=== PATIENT | female | born 1930 | race Caucasian/White ===

== ENCOUNTER 2016-12-28 06:52 | Inpatient (IN) | payer OTHER ==
[~2016-12-28] VITALS: Ht 149.9 cm; Wt 63.0 kg
[~2016-12-28 06:52] MED LIST: AMARYL2 M1 PO; CARVEDILOL12.5 M1 PO; COUMADIN 5 MG TA5 MG PO; JANUVIA50 M1 PO; K-TAB ER20 MEQ PO; LIPITOR20 M2 PO; METOLAZONE5 MG PO; ROCALTROL0.25 MC1 PO; TORSEMIDE100 M1 PO; ZAROXOLYN5 MG PO
--- NOTE | 2016-12-28 07:41 | ED GENERAL ADULT ---
History of Present Illness General Chief Complaint: General Adult Stated Complaint: WEAKNESS Source: patient, family Exam Limitations: patient's age Allergies Coded Allergies: Sulfa (Sulfonamide Antibiotics) (RASH 01/17/16) Reconcile Medications Calcitriol (Rocaltrol) 0.25 MCG CAPSULE 1 CAP PO Saturday SUPPLEMENT (Reported) Carvedilol 12.5 MG TABLET 1 TAB PO BID BP (Reported) Glimepiride (Amaryl) 2 MG TABLET 1 TAB PO QPM DM (Reported) Glimepiride (Amaryl) 2 MG TABLET 2 TAB PO DAILY DM (Reported) Metolazone 5 MG TABLET 1 TAB PO DAILY CHF (Reported) Potassium Chloride (K-Tab ER) 20 MEQ TABLET.ER 1 TAB PO DAILY SUPPLEMENT ( Reported) Sitagliptin Phosphate (Januvia) 50 MG TABLET 1 TAB PO DAILY DM (Reported) Torsemide 100 MG TABLET 1 TAB PO DAILY WATER PILL (Reported) Warfarin Sodium 5 MG TABLET 1 TAB PO 1700 BLOOD THINNER (Reported) Triage Note: PT BIBA C/O SORE THROAT, COLD SYMPTOMS, HEADACHE, NON PRODUCTIVE COUGH X 1 WEEK. PT STATES PAIN IN HEAD IS BEHIND RIGHT EAR. PT LIVES ALONE AND CALLED 911 D/T WEAKNESS CANT PERFORM ADLS Triage Nurses Notes Reviewed? yes HPI: 86 year old woman with multiple medical problems significant for CHF s/p PM and CKD seen for evaluation of right sided head pain, nonproductive cough, sore throat, nasal drip, nausea, and vomiting. Patient is a poor historian, collateral information regarding her well being is offered by the patients daughter whom is present during the interview. She reports onset of these symptoms last saturday and denies any sick contacts. She is followed by a leather stitcher in [place] who recently added metolazone to her medication regimen. Patient reports sleeping with two pillows at night, which is usual for her, and denies any increased shortness of breath. She believes the swelling in her legs is very well controlled. She admits to eating and drinking less during this period of time. Additionally she denies any blurred/double vision, lightheadedness/dizzyness, fever, chills, chest pain, worsening shortness of breath, diarrhea, urinary frequency/urgency/pain, numbness/tingling. (VANIA HUNT,CARLY) Vital Signs & Intake/Output Vital Signs & Intake/Output Vital Signs Date Time Temp Pulse Resp B/P Pulse O2 O2 Flow FiO2 Ox Delivery Rate 12/28 1600 97.2 71 18 130/60 96 Room Air 12/28 1412 96.0 79 20 126/60 98 Room Air 12/28 1112 97.2 67 18 121/70 98 Room Air 12/28 1106 98.3 71 20 134/69 12/28 0913 96.0 72 18 143/74 98 Room Air 12/28 0657 95.7 82 18 154/87 97 Room Air Past History Travel History Traveled to [place] past 21 day No Medical History Any Pertinent Medical History? see below for history Neurological: NONE EENT: NONE Cardiovascular: PACEMAKER VALVE REPLACED Respiratory: NONE Gastrointestinal: NONE Hepatic: NONE Renal: glomerulonephritis Musculoskeletal: gout Psychiatric: NONE Endocrine: diabetes Blood Disorders: NONE Cancer(s): NONE History of MRSA: No History of VRE: No History of CDIFF: No Pneumonia Vaccine: 08/09/15 Influenza Vaccine: 07/31/15 Surgical History Surgical History: appendectomy, cholecystectomy, TIPLE BYPASS NEW VALVUE 3 YEARS AGO PACEMAKER 3 YRS AGO Psychosocial History Who do you live with Patient/Self Services at Home None What is your primary language Barbadian Tobacco Use: Quit >30 days ago ETOH Use: denies use Illicit Drug Use: denies illicit drug use Family History Hx Contributory? No (CARLY CARO MD) Review of Systems Review of Systems Constitutional: Reports: see HPI. (CARLY CARO MD) Physical Exam Physical Exam General Appearance: well developed/nourished, no apparent distress, alert, awake Comments: General - well developed, well nourished pleasant elderly woman in no acute distress HEENT - NCAT, PERRLA, EOMI, anicteric sclera, EAC clear bilaterally, no mastoid tenderness, no sinus tendess, dry mucous membranes, mildly erythematous oropharynx without excudates, no cervical lymphadenopathy Neck - Supple, No JVD CVS - S1, S2 w/o m/g/r Resp - CTA bilaterally w/o wheezing/rhonchi/crackles GI - Soft, nontender, nondistended, bowel sounds present Neuro - Awake and alert, CN II - XII grossly intact, no facial droop, sensation intact Ext - normal pulses, no cyanosis/clubbing, 1+ bilateral lower extremity edema, chronic lower extremity skin changes Core Measures ACS in differential dx? No CVA/TIA Diagnosis: No Severe Sepsis Present: No Septic Shock Present: No (CARLY CARO MD) Progress Differential Diagnoses I considered the following diagnoses in my evaluation of the patient: Cold, flu, hypokalemia, CHF, CKD Initial ED EKG: atrial fibrillation with old RBBB, QTC 58, no ST segment changes Comments: Given patient's history of present illness with nonproductive cough, weakness and malaise it is likely patient is suffering a viral syndrome. She was also recently prescribed a potent diuretic by her leather stitcher in [place] that she has had mixed results with in the past. Complete blood count did not demonstrate leukocytosis. Comprehensive metabolic panel did potassium of 3.4, sodium of 136, BUN/creatinine of 137/4.9, lactic acid 2.9, magnesium 2.0, normal LFTs, troponin 0.03. Urinalysis was within normal limits. Rapid flu was negative. EKG demonstrated atrial fibrillation with old right bundle branch block and no ST segment changes. Chest x-ray did not demonstrate any acute findings. Patient was given 500 mL of intravenous normal saline. Case was discussed with patient's diesel engine ii pipe fitter Dr. Dunn who felt patient was stable to go to the general medicine floor. Admission orders were placed in case was discussed with Dr. Castellanos whom agreed to admit the patient to general medicine floor for evaluation of acute kidney injury on chronic kidney disease and lactic acidosis for treatment with intravenous fluids, nephrology consult, renal ultrasound, and potential antibiotics. (CARLY CARO MD) Plan of Care: Orders Procedure Date/time Status PROTHROMBIN TIME 12/29 0600 Active CBC WITHOUT DIFFERENTIAL 12/29 0600 Active CALCIUM 12/29 0600 Active BASIC ELECTROLYTES PLUS BUN&CR 12/29 0600 Active Consistent Carbohydrate 3 12/28 B Active LACTIC ACID 12/28 1700 Active Vital Signs 12/28 1601 Active Teach/Educate 12/28 1601 Active Nutritional Intake, Monitor 12/28 1601 Active Isolation 12/28 1601 Active Intake & Output 12/28 1601 Active Patient Care Conference 12/28 1601 Active Activity/Ambulation 12/28 1601 Active Weight 12/28 1449 Active PHOSPHORUS 12/28 1416 Active MAGNESIUM 12/28 1416 Active BASIC ELECTROLYTES PLUS BUN&CR 12/28 1416 Active LACTIC ACID 12/28 1330 Complete Pathway - chart 12/28 1143 Active LACTIC ACID 12/28 1027 Complete PT Evaluate & Treat 12/28 1020 Active Pathway - chart 12/28 1020 Active House Staff 12/28 1020 Active Code Status 12/28 1020 Active Lab Add-on Test 12/28 0938 Active Admit to inpatient 12/28 0919 Active Patient Data 12/28 0918 Active PARTIAL THROMBOPLASTIN TIME 12/28 0758 Complete PROTHROMBIN TIME 12/28 0758 Complete B-TYPE NATRIURETIC PEP (BNP) 12/28 0758 Complete RAPID VIRAL INFLUENZA A 12/28 0727 Complete URINALYSIS 12/28 0727 Complete TROPONIN LEVEL 12/28 07 Complete MAGNESIUM 12/28 07 Complete LACTIC ACID 12/28 726 Complete COMPREHENSIVE METABOLIC PANEL 12/28 726 Complete CBC WITHOUT DIFFERENTIAL 12/28 726 Complete EKG 12/28 726 Active Change service to 12/28 UNK Active VTE Mechanical Prophylaxis 12/28 UNK Active Vital Signs 12/28 UNK Active Intake & Output 12/28 UNK Active FingerStick- Glucose 12/28 UNK Active PHYSICIAN CONSULT 12/28 UNK Active Current Medications Sig/Madisyn Start time Last Medication Dose Stop Time Status Admin Calcitriol 0.25 MCG 12/31 1000 AC (Rocaltrol 0.25 Mcg Cap) Potassium Chloride 20 MEQ DAILY 12/29 1000 CAN (K-Dur) Insulin Aspart 0 TIDAC 12/28 1700 AC (NovoLOG) Acetaminophen 650 MG Q6P PRN 12/28 1145 AC (Tylenol) Acetaminophen 1,000 MG Q6P PRN 12/28 1145 AC (Ofirmev) Morphine Sulfate 1 MG Q6-PRN PRN 12/28 1145 AC (Morphine) Laboratory Tests 12/28/16 1405: Lactic Acid 3.2 H 12/28/16 1025: Lactic Acid 2.9 H 12/28/16 0821: Urine Color STRAW, Urine Clarity HAZY H, Urine pH 6.0, Ur Specific [place] 1.010, Urine Protein NEG, Urine Ketones NEG, Urine Nitrite NEG, Urine Bilirubin NEG, Urine Urobilinogen 0.2, Ur Leukocyte Esterase SMALL H, Ur Microscopic SEDIMENT EXAMINED, Urine WBC 5-10 H, Ur Epithelial Cells MOD H, Urine Hemoglobin NEG, Urine Glucose NEG 12/28/16 0758: Anion Gap 20 H, Estimated GFR 8 L, BUN/Creatinine Ratio 24.5, Glucose 203 H, Lactic Acid 2.9 H, Calcium 9.1, Magnesium 2.0, Total Bilirubin 0.6, AST 18, ALT 18, Alkaline Phosphatase 70, Troponin I 0.03, Uus-H-Ycfzxhlvpll Pept 3380 H, Total Protein 7.6, Albumin 4.1, Globulin 3.5, Albumin/Globulin Ratio 1.2, PT 12.4, INR 1.18, APTT 26, CBC w Diff NO MAN DIFF REQ, RBC 4.32, MCV 85.6, MCH 29.1, RDW 13.7, MPV 9.9, Gran % 67.7, Lymphocytes % 23.2, Monocytes % 7.1, Eosinophils % 1.6, Basophils % 0.4, Absolute Granulocytes 5.7, Absolute Lymphocytes 2.0, Absolute Monocytes 0.6, Absolute Eosinophils 0.1, Absolute Basophils 0, PUBS MCHC 34.0 Microbiology 12/28 0752 NASOPHARYN: Influenza Virus A & B Rapid Smear - COMP Departure Departure Disposition: STILL A PATIENT Condition: Stable Clinical Impression Primary Impression: Acute kidney injury superimposed on chronic kidney disease Referrals: YEIMY CARTER MD (PCP/Family) Departure Forms: Customer Survey General Discharge Information Admission Note Spoke With: JENNIFER CASTELLANOS MD Documentation of Exam: Documentation of any treatments & extenuating circumstances including Concerns Regarding Discharge (functional status, medication knowledge or non-compliance, living conditions, etc.) that warrant an admission rather than observation: Given patient's elevated BUN/creatinine and history of chronic kidney disease recently placed on metolazone by her leather stitcher patient warrants an admission to the general medicine floor for evaluation of her acute kidney disease and comorbid lactic acidosis in the context of a history of congestive heart failure. (VANIA HUNT,CARLY) PA/BUSINESS ADMINISTRATION PROGRAM CHAIR Co-Sign Statement Statement: ED Attending supervision documentation- [X] I saw and evaluated the patient. I have also reviewed all the pertinent lab results and diagnostic results. I agree with the findings and the plan of care as documented in the PA's/BUSINESS ADMINISTRATION PROGRAM CHAIR's documentation. [X] I have reviewed the ED Record and agree with the PA's/BUSINESS ADMINISTRATION PROGRAM CHAIR's documentation. [] Additions or exceptions (if any) to the PAs/BUSINESS ADMINISTRATION PROGRAM CHAIR's note and plan are summarized below: [Hypersensitivity and examined this patient. He has been written. Patient feeling progressively weaker since her in the Zaroxolyn. Patient is on acute on chronic renal failure. Her lactic acid is elevated. Patient to be admitted to the hospital.] (DEMARIO HUNT,JOHN Steele) Critical Care Note Critical Care Note Critical Care Time: non-applicable (VANIA HUNT,CRALY)
--- NOTE | 2016-12-28 08:00 | RADIOLOGY REPORT ---
EXAMINATION: XR PORTABLE CHEST CLINICAL INFORMATION: Shows of breath, nausea, cough, vomiting COMPARISON: 11/06/2015 TECHNIQUE: Portable AP view of the chest was obtained. FINDINGS: No significant interval change. No focal consolidation, pleural effusion or pneumothorax. Coarsened and reticulated interstitial lung markings, unchanged. Stable cardiomegaly. Anterior median sternotomy wires. TAVR. Mediastinal clips. Marked atherosclerosis thoracic aorta. Right chest pacer with lead projecting over the right ventricle. No acute osseous abnormality. Surgical clips project over the epigastrium. IMPRESSION: No significant interval change and no acute cardiopulmonary process. Stable cardiomegaly. Chronic coarsening of the interstitial lung markings suggestive of underlying interstitial lung disease.
[2016-12-28 08:09] LABS: ABSOLUTE BASOPHIL COUNT 0 /CUMM (0.0-0.2); ABSOLUTE EOSINOPHIL COUNT 0.1 /CUMM (0.0-0.7); ABSOLUTE GRANULOCYTE CT 5.7 /CUMM (1.4-6.5); ABSOLUTE MONOCYTE COUNT 0.6 /CUMM (0.10-0.60); BASOPHIL % 0.4 % (0.0-2.0); EOSINOPHIL % 1.6 % (0-5); GRANULOCYTE % 67.7 % (42.2-75.2); MEAN CORPUSCULAR HGB 29.1 PG (27.0-31.0); MEAN CORPUSCULAR VOLUME 85.6 FL (81.0-99.0); MEAN PLATELET VOLUME 9.9 FL (7.4-10.4); PLATELET COUNT 152 /CUMM (130-400); RBC DISTRIBUTION WIDTH 13.7 % (11.5-14.5); RED BLOOD CELL CT 4.32 /CUMM (4.20-5.40); WHITE BLOOD CELL COUNT 8.4 /CUMM (4.8-10.8)
[2016-12-28] MEDS ORDERED: METOLAZONE5 M1 PO (09:18)
[2016-12-28] MEDS ORDERED: WARFARIN SODIUM5 M1 PO (09:20)
--- NOTE | 2016-12-28 09:23 | History & Physical ---
ERNESTO MANRIQUEZ 12/28/16 0923: General Information and HPI MD Statement: I have seen and personally examined KEVIN ARECHIGA and documented this H&P. The patient is a 86 year old F who presented with a patient stated chief complaint of [cold symptoms and sore throat for 1 week]. Source of Information: patient, family, old records Exam Limitations: no limitations History of Present Illness: This is an 86 years old lady with past medical history of atrial fibrillation on Coumadin, diastolic CHF, TAVR, diabetic mellitus, gout, CABG, end-stage renal disease not on hemodialysis presented with one-week history of cold like symptoms with runny nose and sore throat, she denies any sick contacts she does not have any fever although she reports chills. She has no cough or shortness of breath associated with these symptoms. Patient reports that she has been eating and drinking well and taking her medications as instructed. The patient denies any paroxysmal nocturnal dyspnea, orthopnea, she has been using 2 pillows which is unchanged. This patient lives alone and take care of all her ADLs herself she also takes her medications without supervision. On assessment she has very long nails which has not been attended to. Her INR is normal though she is supposed to be on warfarin, appears like the patient is not taking warfarin at all or she reports to be taking all her medications. With all these advanced comorbidities this patient need addressing of her social challenges. Patient has been having GFR of 12 from May 2016 however from talking to the patient and the daughter there has not been a discussion about dialysis or plan on long-term management of the renal function. Talking to the patient she said jokingly that her brother was on dialysis and was not present prior to and I asked if you like to pursue that she did not answer my question. She denies any dysuria or change in urine frequency, she has no nausea or vomiting and reports very good appetite and like to have a scrambled egg. Allergies/Medications Allergies: Coded Allergies: Sulfa (Sulfonamide Antibiotics) (RASH 01/17/16) Home Med list Calcitriol (Rocaltrol) 0.25 MCG CAPSULE 1 CAP PO Saturday SUPPLEMENT (Reported) Carvedilol 12.5 MG TABLET 1 TAB PO BID BP (Reported) Glimepiride (Amaryl) 2 MG TABLET 1 TAB PO QPM DM (Reported) Glimepiride (Amaryl) 2 MG TABLET 2 TAB PO DAILY DM (Reported) Metolazone 5 MG TABLET 1 TAB PO DAILY CHF (Reported) Potassium Chloride (K-Tab ER) 20 MEQ TABLET.ER 1 TAB PO DAILY SUPPLEMENT ( Reported) Sitagliptin Phosphate (Januvia) 50 MG TABLET 1 TAB PO DAILY DM (Reported) Torsemide 100 MG TABLET 1 TAB PO DAILY WATER PILL (Reported) Warfarin Sodium 5 MG TABLET 1 TAB PO 1700 BLOOD THINNER (Reported) Past History Travel History Traveled to [place] past 21 day No Medical History Neurological: NONE EENT: NONE Cardiovascular: PACEMAKER VALVE REPLACED Respiratory: NONE Gastrointestinal: NONE Hepatic: NONE Renal: glomerulonephritis Musculoskeletal: gout Psychiatric: NONE Endocrine: diabetes Blood Disorders: NONE Cancer(s): NONE History of MRSA: No History of VRE: No History of CDIFF: No Pneumonia Vaccine: 08/09/15 Influenza Vaccine: 07/31/15 Surgical History Surgical History: appendectomy, cholecystectomy, TIPLE BYPASS NEW VALVUE 3 YEARS AGO PACEMAKER 3 YRS AGO Past Family/Social History Family History Relations & Conditions if any BROTHER (DM). MOTHER (DM). FATHER (CAD). Psychosocial History Services at Home: None ETOH Use: denies use Illicit Drug Use: denies illicit drug use Living Will? no Functional Ability ADLs Independent: dressing, eating, toileting, bathing. Ambulation: cane IADLs Independent: housework, finances, food prep, telephone, medication admin. Needs Assist: transportation. Review of Systems Review of Systems Constitutional: Reports: chills. Denies: fever. EENTM: Denies: blurred vision. Cardiovascular: Denies: chest pain, palpitations. Respiratory: Denies: cough, short of breath. GI: Denies: abdominal pain, nausea, vomiting. Genitourinary: Denies: dysuria, frequency, urgency. Musculoskeletal: Denies: no symptoms. All Other Systems: Reviewed and Negative Exam & Diagnostic Data Last 24 Hrs of Vital Signs/I&O Vital Signs Date Time Temp Pulse Resp B/P Pulse O2 O2 Flow FiO2 Ox Delivery Rate 12/28 1112 97.2 67 18 121/70 98 Room Air 12/28 1106 98.3 71 20 134/69 12/28 0913 96.0 72 18 143/74 98 Room Air 12/28 0657 95.7 82 18 154/87 97 Room Air Intake & Output 12/28 1600 12/28 0800 12/28 0000 Intake Total 1000 Output Total 150 Balance -150 1000 Intake, IV 1000 Output, Urine 150 Patient 141 lb Weight Physical Exam General Appearance Alert, Oriented X3, Cooperative, No Acute Distress Skin No Rashes HEENT Atraumatic, DRY mucous membranes Neck No JVD Cardiovascular Regular Rate, Normal S1, Normal S2 Lungs Crepitation more pronounced on the lung bases Abdomen Normal Bowel Sounds, Soft, No Tenderness Neurological Normal Speech, Normal Tone Extremities No Clubbing, No Cyanosis, mild edema of lower limbs Last 24 Hrs of Labs/Zachary: Laboratory Tests 12/28/16 1025: Lactic Acid 2.9 H 12/28/16 0821: Urine Color STRAW, Urine Clarity HAZY H, Urine pH 6.0, Ur Specific [place] 1.010, Urine Protein NEG, Urine Ketones NEG, Urine Nitrite NEG, Urine Bilirubin NEG, Urine Urobilinogen 0.2, Ur Leukocyte Esterase SMALL H, Ur Microscopic SEDIMENT EXAMINED, Urine WBC 5-10 H, Ur Epithelial Cells MOD H, Urine Hemoglobin NEG, Urine Glucose NEG 12/28/16 0758: Anion Gap 20 H, Estimated GFR 8 L, BUN/Creatinine Ratio 24.5, Glucose 203 H, Lactic Acid 2.9 H, Calcium 9.1, Magnesium 2.0, Total Bilirubin 0.6, AST 18, ALT 18, Alkaline Phosphatase 70, Troponin I 0.03, Mbv-T-Cndkewwmxoy Pept 3380 H, Total Protein 7.6, Albumin 4.1, Globulin 3.5, Albumin/Globulin Ratio 1.2, PT 12.4, INR 1.18, APTT 26, CBC w Diff NO MAN DIFF REQ, RBC 4.32, MCV 85.6, MCH 29.1, RDW 13.7, MPV 9.9, Gran % 67.7, Lymphocytes % 23.2, Monocytes % 7.1, Eosinophils % 1.6, Basophils % 0.4, Absolute Granulocytes 5.7, Absolute Lymphocytes 2.0, Absolute Monocytes 0.6, Absolute Eosinophils 0.1, Absolute Basophils 0, PUBS MCHC 34.0 Microbiology 12/28 0752 NASOPHARYN: Influenza Virus A & B Rapid Smear - COMP Diagnostic Data EKG Results A. fib with right bundle branch block and ST depressions all these features are unchanged from previous EKG CXR Results Interstitial lung markings suggestive of interstitial lung disease Assessment/Plan Assessment: This is an 86 years old lady with extensive past medical history of diastolic CHF, A. fib on Coumadin, bioprosthetic aortic pounds, status post pacemaker placement, CABG, end-stage renal disease not on hemodialysis who presented with one-week history of cold-like symptoms. Patient presented with normal INR and slight worsening of creatinine from 3.6-4.9 but this patient has had a GFR of 12 from May 2016 and currently GFR is 8. There is mild lactic acidosis of 2.9 but no evidence of infection. Problem list Worsening CKD Subtherapeutic INR Lactic acidosis Hypokalemia Admit patient to general medicine floor Patient has received 500 mL bolus of normal saline, continue to maintain on normal saline at 75 mL per hour Trend lactic acid until when it normalizes Received 7.5 mg of warfarin, check INR and continue dosing Coumadin to build to therapeutic level Patient has a [id number] score of 6 with 9.8%% risk, given her severely subtherapeutic INR at benefit from heparin bridging. Patient received 60 MEQ of potassium, repeat BEP and replenish potassium accordingly Check renal ultrasound to rule out renal obstruction, urine lites, nephrology consult This patient has end-stage renal disease with GFR currently at 8 and was 12 on May 2016, the family needs discussion on if they will pursue dialysis or continue with conservative management, this discussion has not been done for the patient and daughter. Social work consult to assess for home safety and consider placement PT evaluation Patient is DNI DNR As Ranked By This Provider Problem List: 1. Diabetes mellitus 2. Alkalosis 3. Subtherapeutic anticoagulation Core Measures/Miscellaneous Acute Coronary Syndrome ACS Diagnosis: No Cerebrovascular Accident CVA/TIA Diagnosis: No Congestive Heart Failure CHF Diagnosis: No Venous Thromboembolism VTE Risk Factors: Acute medical illness, Age > 40 VTE Prophylaxis Ordered Inpt: [facility] prophylaxis d/t: No contraindications No VTE Pharm Prophylaxis d/t: No contraindications VTE Diagnosis: No VTE Type: NONE VTE Confirmed by (Test): NONE Severe Sepsis Severe Sepsis Present: No Septic Shock Septic Shock Present: No Miscellaneous Documentation Attending Case Discussed With: NELIA BRIDGES MD Primary Care Physician: YEIMY CARTER MD Patient sees these Specialists Catalyst Plant Supervisor Naye Dunn MD survey operations director Level of Patient Care: General Medicine Consults Needed: Consulting Specialty: Nephrology Consulting Physician: Dr. 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 She denied any fever, chest pain, palpitations, abdominal pain. She has been seeing a Catalyst Plant Supervisor in [place], [place] and was recently begun on Metolazone. In the ED was noted to have an increase in Cr to 4.9 (was 3.6 in 2015) and elevated lactate level. Physical Exam: VS: T 96, P 72, R 18, BP 143/74, PO 98% RA HEENT: eyes- PERRLA, EOMI sanchez- dry mucosa Neck: no JVD or bruits Chest: some fine rales/crackle at bases Cor: RR sl irre rhythm, nl S1, S2 w/o murm Abd: BS+, soft, NT, - masses or HSM Ext: tr LE edema bilat Neuro: alert & oriented x 3, non-focal Labs/Tests: as above Impression/Plan: #Acute on Chronic Renal Failure- patient recently started on Metolazone. Appears slightly volume depleted. Plan: Admit to medical floor. Gentle IV hydration and closely follow BUN/Cr. I/O's. Nephrology consult. Renal US. Hold diuretics. #CAD/TAVR- no c/o ischemic symptoms. EKG w/o change. Plan: continue cardiac meds. #Atrial Fibrillation- INR subtherapeutic. HR in range. Plan: Continue Carvedilol and Coumadin- heparin bridge. #DM2- on oral agents. Plan: Will check glucoscans and give sliding scale insulin at present. #Interstitial Lung Disease- patient has fine rales and radiographic appearance of interstitial lung disease (not CHF). Plan: Will review old records regarding any prior workup. #H/O Preserved EF CHF (diastolic dysfunction)- exam more c/w interstitial lung disease rather than CHF. Plan: Will review old films and compare. Cardiology to see. #Lactic Acidosis- patient with elevated lactate level. Plan: Follow-up post hydration.
[2016-12-28 09:54] LABS: PT 12.4 SEC (9.4-12.5); PTT 26 SEC (25-37)
--- NOTE | 2016-12-28 12:53 | ULTRASOUND REPORT ---
EXAMINATION: US RETROPERITONEAL COMPLETE (RENAL) CLINICAL INFORMATION: Worsening renal function. Acute kidney injury.. COMPARISON: 11/07/2015 TECHNIQUE: Real-time imaging of the kidneys and bladder. FINDINGS: RIGHT KIDNEY: 10 55.2 x 5.8 cm (SAG x AP x TRV). The kidney is normal in size and contour with increased echogenicity. Renal cortical thickness is normal. There is an upper pole 0.9 cm simple cyst. No calculi or solid parenchymal lesions. No hydronephrosis. LEFT KIDNEY: 10 x 5.2 x 5.8 cm (SAG x AP x TRV). The kidney is normal in size and contour with increased echogenicity. Renal cortical thickness is normal. No calculi or focal parenchymal lesions. No hydronephrosis. BLADDER: Well-distended and normal. Right ureteral jet is demonstrated; left is not. Prevoid bladder volume is 382 mL. IMPRESSION: Increased renal cortical echogenicity suggestive of medical renal disease. No hydronephrosis. No significant change from previous..
--- NOTE | 2016-12-28 14:12 | Cons- Cardiology ---
General Information and HPI Consulting Request Date of Consult: 12/28/16 Requested By: NELIA BRIDGES MD Source of Information: patient, old records Exam Limitations: no limitations History of Present Illness: This is an 86 years old lady with past medical history of atrial fibrillation on Coumadin, diastolic CHF, TAVR, diabetic mellitus, gout, CABG, end-stage renal disease not on hemodialysis presented with one-week history of cold like symptoms with runny nose and sore throat, she denies any sick contacts she does not have any fever although she reports chills. She has no cough or shortness of breath associated with these symptoms. She denies any other obvious cardiovascular symptoms This patient lives alone and take care of all her ADLs herself she also takes her medications without supervision. Allergies/Medications Allergies: Coded Allergies: Sulfa (Sulfonamide Antibiotics) (RASH 01/17/16) Home Med List: Calcitriol (Rocaltrol) 0.25 MCG CAPSULE 1 CAP PO Saturday SUPPLEMENT (Reported) Carvedilol 12.5 MG TABLET 1 TAB PO BID BP (Reported) Glimepiride (Amaryl) 2 MG TABLET 1 TAB PO QPM DM (Reported) Glimepiride (Amaryl) 2 MG TABLET 2 TAB PO DAILY DM (Reported) Metolazone 5 MG TABLET 1 TAB PO DAILY CHF (Reported) Potassium Chloride (K-Tab ER) 20 MEQ TABLET.ER 1 TAB PO DAILY SUPPLEMENT ( Reported) Sitagliptin Phosphate (Januvia) 50 MG TABLET 1 TAB PO DAILY DM (Reported) Torsemide 100 MG TABLET 1 TAB PO DAILY WATER PILL (Reported) Warfarin Sodium 5 MG TABLET 1 TAB PO 1700 BLOOD THINNER (Reported) Current Medications: Current Medications Sig/Madisyn Start time Last Medication Dose Route Stop Time Status Admin Acetaminophen 650 MG Q6P PRN 12/28 1145 AC PO Acetaminophen 1,000 MG Q6P PRN 12/28 1145 AC IV Calcitriol 0.25 MCG 12/31 1000 AC PO Carvedilol 12.5 MG BID 12/28 1035 AC 12/28 PO 1106 Heparin Sodium 25,000 UNIT Q24H 12/28 1345 AC (Porcine) IV Sodium Chloride 500 ML Insulin Aspart 0 TIDAC 12/28 1700 AC SC Morphine Sulfate 1 MG Q6-PRN PRN 12/28 1145 AC IV Potassium Chloride 20 MEQ DAILY 12/29 1000 AC PO Potassium Chloride 40 MEQ Q13H 12/28 1030 AC 12/28 Sodium Chloride 1,000 ML IV 1106 Potassium Chloride 0 .STK-MED ONE 12/28 1000 DC PO Potassium Chloride 60 MEQ ONCE ONE 12/28 0945 DC 12/28 PO 12/28 0946 1014 Sodium Chloride 500 ML BOLUS ONE 12/28 0730 DC 12/28 IV 12/28 0829 0749 Warfarin Sodium 7.5 MG COUMADIN 1700 ONE 12/28 1045 DC 12/28 PO 12/28 1046 1106 Past History Travel History Traveled to [place] past 21 day No Medical History Neurological: NONE EENT: NONE Cardiovascular: PACEMAKER VALVE REPLACED Respiratory: NONE Gastrointestinal: NONE Hepatic: NONE Renal: glomerulonephritis Musculoskeletal: gout Psychiatric: NONE Endocrine: diabetes Blood Disorders: NONE Cancer(s): NONE Surgical History Surgical History: appendectomy, cholecystectomy, TIPLE BYPASS NEW VALVUE 3 YEARS AGO PACEMAKER 3 YRS AGO Family History Relations & Conditions If Any: BROTHER (DM). MOTHER (DM). FATHER (CAD). Psychosocial History Services at Home: None ETOH Use: denies use Illicit Drug Use: denies illicit drug use Living Will? no Functional Ability ADLs Independent: dressing, eating, toileting, bathing. Ambulation: cane IADLs Independent: housework, finances, food prep, telephone, medication admin. Needs Assist: transportation. Exam & Diagnostic Data Vital Signs and I&O Vital Signs Date Time Temp Pulse Resp B/P Pulse O2 O2 Flow FiO2 Ox Delivery Rate 12/28 1112 97.2 67 18 121/70 98 Room Air 12/28 1106 98.3 71 20 134/69 12/28 0913 96.0 72 18 143/74 98 Room Air 12/28 0657 95.7 82 18 154/87 97 Room Air Intake & Output 12/28 1600 12/28 0800 12/28 0000 12/27 1600 12/27 0800 12/27 0000 Intake Total 1000 Output Total 150 Balance -150 1000 Intake, IV 1000 Output, Urine 150 Patient 141 lb Weight Physical Exam: General Appearance Alert, Oriented X3, Cooperative, No Acute Distress Skin No Rashes HEENT Atraumatic, DRY mucous membranes Neck No JVD Cardiovascular Regular Rate, Normal S1, Normal S2, 1-2/6 systolic murmur Lungs bilateral rhonchi Abdomen Normal Bowel Sounds, Soft, No Tenderness Neurological Normal Speech, Normal Tone Extremities No Clubbing, No Cyanosis, mild edema of lower limbs Labs/Zachary Results: Laboratory Tests 12/28 12/28 12/28 1405 1025 0821 Chemistry Lactic Acid (0.7 - 2.1 mmol/L) Pending 2.9 H Urines Urine Color (YEL,AMB,STR) STRAW Urine Clarity (CLEAR) HAZY H Urine pH (5.0 - 8.0) 6.0 Ur Specific Ola (1.001 - 1.035) 1.010 Urine Protein (NEG,<30 MG/DL) NEG Urine Ketones (NEG) NEG Urine Nitrite (NEG) NEG Urine Bilirubin (NEG) NEG Urine Urobilinogen (0.1 - 1.0 EU/dl) 0.2 Ur Leukocyte Esterase (NEG) SMALL H Ur Microscopic SEDIMENT EXAMINED Urine WBC (0 - 2 /HPF) 5-10 H Ur Epithelial Cells (NONE,FEW) MOD H Urine Hemoglobin (NEG) NEG Urine Glucose (N MG/DL) NEG 12/28 0758 Chemistry Sodium (137 - 145 mmol/L) 136 L Potassium (3.5 - 5.1 mmol/L) 3.4 L Chloride (98 - 107 mmol/L) 92 L Carbon Dioxide (22 - 30 mmol/L) 23 Anion Gap (5 - 16) 20 H BUN (7 - 17 mg/dL) 137 *H Creatinine (0.5 - 1.0 mg/dL) 4.9 H Estimated GFR (>60 ml/min) 8 L BUN/Creatinine Ratio (7 - 25 %) 24.5 Glucose (65 - 99 mg/dL) 203 H Lactic Acid (0.7 - 2.1 mmol/L) 2.9 H Calcium (8.4 - 10.2 mg/dL) 9.1 Magnesium (1.6 - 2.3 mg/dL) 2.0 Total Bilirubin (0.2 - 1.3 mg/dL) 0.6 AST (14 - 36 U/L) 18 ALT (9 - 52 U/L) 18 Alkaline Phosphatase (<127 U/L) 70 Troponin I (< 0.11 ng/ml) 0.03 Mpr-P-Dkhbvrbupck Pept (<125 pg/mL) 3380 H Total Protein (6.3 - 8.2 g/dL) 7.6 Albumin (3.5 - 5.0 g/dL) 4.1 Globulin (1.9 - 4.2 gm/dL) 3.5 Albumin/Globulin Ratio (1.1 - 2.2 %) 1.2 Coagulation PT (9.4 - 12.5 SEC) 12.4 INR (0.90 - 1.19) 1.18 APTT (25 - 37 SEC) 26 Hematology CBC w Diff NO MAN DIFF REQ WBC (4.8 - 10.8 /CUMM) 8.4 RBC (4.20 - 5.40 /CUMM) 4.32 Hgb (12.0 - 16.0 G/DL) 12.6 Hct (37 - 47 %) 37.0 MCV (81.0 - 99.0 FL) 85.6 MCH (27.0 - 31.0 PG) 29.1 RDW (11.5 - 14.5 %) 13.7 Plt Count (130 - 400 /CUMM) 152 MPV (7.4 - 10.4 FL) 9.9 Gran % (42.2 - 75.2 %) 67.7 Lymphocytes % (20.5 - 51.1 %) 23.2 Monocytes % (1.7 - 9.3 %) 7.1 Eosinophils % (0 - 5 %) 1.6 Basophils % (0.0 - 2.0 %) 0.4 Absolute Granulocytes (1.4 - 6.5 /CUMM) 5.7 Absolute Lymphocytes (1.2 - 3.4 /CUMM) 2.0 Absolute Monocytes (0.10 - 0.60 /CUMM) 0.6 Absolute Eosinophils (0.0 - 0.7 /CUMM) 0.1 Absolute Basophils (0.0 - 0.2 /CUMM) 0 PUBS MCHC (33.0 - 37.0 G/DL) 34.0 Diagnostic Data CXR Results IMPRESSION: No significant interval change and no acute cardiopulmonary process. Stable cardiomegaly. Chronic coarsening of the interstitial lung markings suggestive of underlying interstitial lung disease. Assessment/Plan Assessment/Plan Assessment: 1. Acute on chronic renal insufficiency. 2. History of CAD 3. History of ; S/P TAVR 4. Atrial fibrillation 5. History of HFpEF 6. DM REcommendations. - Nephrology input pending - HOld diuretics and nephrotoxic meds - Admit to [facility] MEd - Consult Acknowledgment - Thank you for your consult request.
--- NOTE | 2016-12-28 14:16 | Cons- Nephrology ---
General Information and HPI Consulting Request Date of Consult: 12/28/16 Requested By: NELIA BRIDGES MD Reason for Consult: Renal Failure Source of Information: patient, old records Exam Limitations: no limitations History of Present Illness: 86 yr olf WF w mult med problems including DM, HTN, CAD s/p CAG, TAVR, CHF, & advanced CKD admit now w several days of URI sx/sore throat & diarrhea. Known stage 5 CKD w baseline Cr last summer mid 3s & found worse w BUN/Cr 139/4.9 now. On toresemide as well as metolazone at home but no documented ACEI. ARB, or recent IV contrast. Denies NSAID use & no hypotension. Has generalized fatigue but denies gross uremic sx. Of note, brother ESRD on dialysis in [place] before expiring. Pt has not had any ESRD planning or decided wheteher willing to undergo dialysis but has elected DNR/do not intubate. Allergies/Medications Allergies: Coded Allergies: Sulfa (Sulfonamide Antibiotics) (RASH 01/17/16) Home Med List: Calcitriol (Rocaltrol) 0.25 MCG CAPSULE 1 CAP PO Saturday SUPPLEMENT (Reported) Carvedilol 12.5 MG TABLET 1 TAB PO BID BP (Reported) Glimepiride (Amaryl) 2 MG TABLET 1 TAB PO QPM DM (Reported) Glimepiride (Amaryl) 2 MG TABLET 2 TAB PO DAILY DM (Reported) Metolazone 5 MG TABLET 1 TAB PO DAILY CHF (Reported) Potassium Chloride (K-Tab ER) 20 MEQ TABLET.ER 1 TAB PO DAILY SUPPLEMENT ( Reported) Sitagliptin Phosphate (Januvia) 50 MG TABLET 1 TAB PO DAILY DM (Reported) Torsemide 100 MG TABLET 1 TAB PO DAILY WATER PILL (Reported) Warfarin Sodium 5 MG TABLET 1 TAB PO 1700 BLOOD THINNER (Reported) Current Medications: Current Medications Sig/Madisyn Start time Last Medication Dose Route Stop Time Status Admin Acetaminophen 650 MG Q6P PRN 12/28 1145 AC PO Acetaminophen 1,000 MG Q6P PRN 12/28 1145 AC IV Calcitriol 0.25 MCG 12/31 1000 AC PO Carvedilol 12.5 MG BID 12/28 1035 AC 12/28 PO 1106 Heparin Sodium 25,000 UNIT Q24H 12/28 1345 AC (Porcine) IV Sodium Chloride 500 ML Insulin Aspart 0 TIDAC 12/28 1700 AC SC Morphine Sulfate 1 MG Q6-PRN PRN 12/28 1145 AC IV Potassium Chloride 20 MEQ DAILY 12/29 1000 AC PO Potassium Chloride 40 MEQ Q13H 12/28 1030 AC 12/28 Sodium Chloride 1,000 ML IV 1106 Potassium Chloride 0 .STK-MED ONE 12/28 1000 DC PO Potassium Chloride 60 MEQ ONCE ONE 12/28 0945 DC 12/28 PO 12/28 0946 1014 Sodium Chloride 500 ML BOLUS ONE 12/28 0730 DC 12/28 IV 12/28 0829 0749 Warfarin Sodium 7.5 MG COUMADIN 1700 ONE 12/28 1045 DC 12/28 PO 12/28 1046 1106 Review of Systems Review of Systems Constitutional: Reports: malaise, weakness. EENTM: Reports: throat pain (rhinorrhea). Cardiovascular: Reports: no symptoms. Respiratory: Reports: no symptoms. GI: Reports: diarrhea. Genitourinary: Reports: no symptoms. Musculoskeletal: Reports: no symptoms. Skin: Reports: no symptoms. Neurological/Psychological: Reports: no symptoms. Hematologic/Endocrine: Reports: no symptoms. Immunologic/Allergic: Reports: no symptoms. All Other Systems: Reviewed and Negative Past History Travel History Traveled to [place] past 21 day No Medical History Neurological: NONE EENT: NONE Cardiovascular: PACEMAKER VALVE REPLACED Respiratory: NONE Gastrointestinal: NONE Hepatic: NONE Renal: glomerulonephritis Musculoskeletal: gout Psychiatric: NONE Endocrine: diabetes Blood Disorders: NONE Cancer(s): NONE Surgical History Surgical History: appendectomy, cholecystectomy, TIPLE BYPASS NEW VALVUE 3 YEARS AGO PACEMAKER 3 YRS AGO Family History Relations & Conditions If Any: BROTHER (DM). MOTHER (DM). FATHER (CAD). Psychosocial History Services at Home: None ETOH Use: denies use Illicit Drug Use: denies illicit drug use Living Will? no Functional Ability ADLs Independent: dressing, eating, toileting, bathing. Ambulation: cane IADLs Independent: housework, finances, food prep, telephone, medication admin. Needs Assist: transportation. Exam & Diagnostic Data Vital Signs and I&O Vital Signs Date Time Temp Pulse Resp B/P Pulse O2 O2 Flow FiO2 Ox Delivery Rate 12/28 1112 97.2 67 18 121/70 98 Room Air 12/28 1106 98.3 71 20 134/69 02/24 0913 96.0 72 18 143/74 98 Room Air 12/28 0657 95.7 82 18 154/87 97 Room Air Intake & Output 12/28 0400 12/26 040 Intake Total 1000 Output Total 150 Balance 850 Intake, IV 1000 Output, Urine 150 Patient 141 lb Weight Physical Exam General Appearance: well developed/nourished, no apparent distress, alert Head: atraumatic, normal appearance Eyes: Bilateral: normal appearance. Ears, Nose, Throat: normal ENT inspection Neck: normal inspection, supple Respiratory: no respiratory distress, quiet respiration, rales (bilat) Cardiovascular: regular rate/rhythm, friction rub (none) Gastrointestinal: soft, non-tender, no organomegaly, epigastric abd wall hernia Back: normal inspection Extremities: 0-trace edema Neurologic/Psych: no motor/sensory deficits, alert, mail agent II-XII nml as tested, no asterixis Skin: intact, normal color Lymphatic: no anterior cervical rubens Results Pertinent Lab Results: Laboratory Tests 12/28 12/28 1025 0821 Chemistry Lactic Acid (0.7 - 2.1 mmol/L) 2.9 H Urines Urine Color (YEL,AMB,STR) STRAW Urine Clarity (CLEAR) HAZY H Urine pH (5.0 - 8.0) 6.0 Ur Specific Desha (1.001 - 1.035) 1.010 Urine Protein (NEG,<30 MG/DL) NEG Urine Ketones (NEG) NEG Urine Nitrite (NEG) NEG Urine Bilirubin (NEG) NEG Urine Urobilinogen (0.1 - 1.0 EU/dl) 0.2 Ur Leukocyte Esterase (NEG) SMALL H Ur Microscopic SEDIMENT EXAMINED Urine WBC (0 - 2 /HPF) 5-10 H Ur Epithelial Cells (NONE,FEW) MOD H Urine Hemoglobin (NEG) NEG Urine Glucose (N MG/DL) NEG 12/28 0758 Chemistry Sodium (137 - 145 mmol/L) 136 L Potassium (3.5 - 5.1 mmol/L) 3.4 L Chloride (98 - 107 mmol/L) 92 L Carbon Dioxide (22 - 30 mmol/L) 23 Anion Gap (5 - 16) 20 H BUN (7 - 17 mg/dL) 137 *H Creatinine (0.5 - 1.0 mg/dL) 4.9 H Estimated GFR (>60 ml/min) 8 L BUN/Creatinine Ratio (7 - 25 %) 24.5 Glucose (65 - 99 mg/dL) 203 H Lactic Acid (0.7 - 2.1 mmol/L) 2.9 H Calcium (8.4 - 10.2 mg/dL) 9.1 Magnesium (1.6 - 2.3 mg/dL) 2.0 Total Bilirubin (0.2 - 1.3 mg/dL) 0.6 AST (14 - 36 U/L) 18 ALT (9 - 52 U/L) 18 Alkaline Phosphatase (<127 U/L) 70 Troponin I (< 0.11 ng/ml) 0.03 Gdv-L-Ilbblzltfov Pept (<125 pg/mL) 3380 H Total Protein (6.3 - 8.2 g/dL) 7.6 Albumin (3.5 - 5.0 g/dL) 4.1 Globulin (1.9 - 4.2 gm/dL) 3.5 Albumin/Globulin Ratio (1.1 - 2.2 %) 1.2 Coagulation PT (9.4 - 12.5 SEC) 12.4 INR (0.90 - 1.19) 1.18 APTT (25 - 37 SEC) 26 Hematology CBC w Diff NO MAN DIFF REQ WBC (4.8 - 10.8 /CUMM) 8.4 RBC (4.20 - 5.40 /CUMM) 4.32 Hgb (12.0 - 16.0 G/DL) 12.6 Hct (37 - 47 %) 37.0 MCV (81.0 - 99.0 FL) 85.6 MCH (27.0 - 31.0 PG) 29.1 RDW (11.5 - 14.5 %) 13.7 Plt Count (130 - 400 /CUMM) 152 MPV (7.4 - 10.4 FL) 9.9 Gran % (42.2 - 75.2 %) 67.7 Lymphocytes % (20.5 - 51.1 %) 23.2 Monocytes % (1.7 - 9.3 %) 7.1 Eosinophils % (0 - 5 %) 1.6 Basophils % (0.0 - 2.0 %) 0.4 Absolute Granulocytes (1.4 - 6.5 /CUMM) 5.7 Absolute Lymphocytes (1.2 - 3.4 /CUMM) 2.0 Absolute Monocytes (0.10 - 0.60 /CUMM) 0.6 Absolute Eosinophils (0.0 - 0.7 /CUMM) 0.1 Absolute Basophils (0.0 - 0.2 /CUMM) 0 PUBS MCHC (33.0 - 37.0 G/DL) 34.0 Imaging/Other Studies: Portable AP view of the chest was obtained. FINDINGS: No significant interval change. No focal consolidation, pleural effusion or pneumothorax. Coarsened and reticulated interstitial lung markings, unchanged. Stable cardiomegaly. Anterior median sternotomy wires. TAVR. Mediastinal clips. Marked atherosclerosis thoracic aorta. Right chest pacer with lead projecting over the right ventricle. No acute osseous abnormality. Surgical clips project over the epigastrium. IMPRESSION: No significant interval change and no acute cardiopulmonary process. Stable cardiomegaly. Chronic coarsening of the interstitial lung markings suggestive of underlying interstitial lung disease. Renal US: IMPRESSION: Increased renal cortical echogenicity suggestive of medical renal disease. No hydronephrosis. No significant change from previous.. Assessment/Plan Assessment/Recommendations Assessment: 1. CKD: ESRD, stage 5, uncertain etiology. Diabetic nephropathy or chronic GN unlikely w/o significant proteinuria on u/a. Given chronic & far advanced dx, no indication for further investigation. 2. KELSIE: ? superimposed prerenal due to overdiuresis & diarrhea. Can't r/o progression underlying CKD. No immediate diaylsis imperative & not clear pt willing to accept fdc dialysis. Favor trial volume expansion as diuretcs held. Recommendations: 1. change IV NS 75 ml/hr 2. dose KCl onnly as neded 3. hold diuretics 4. repeat labs in AM 5. family to clarify limits of care including dialysis
--- NOTE | 2016-12-28 14:26 | Admission Certification ---
Admission Certification Certification Statement - As attending physician, I certify that at the time of - admission, based on clinical presentation, severity of - symptoms, need for further diagnostic testing and - therapeutic interventions, and risk of adverse outcomes - without in-hospital treatment, in my clinical assessment, - this patient requires an acute hospital stay for a minimum - of two nights or longer. I have also considered psychsocial - factors such as support system, advanced age, financial - issues, cognitive issues, and failed out-patient treatments, - past re-admission history, safety of patient, and lack of - compliance as applicable. Specific rationale supporting this admission is: The patient presents with weakness and Acute on chronic renal failure with significant increase in Cr since last checked. Also noted to have lactic acidosis. Needs IV fluids, renal US, close follow of I/O's. Cardiology & Nephrology consults.
[2016-12-28 16:00] VITALS: BP 130/60
[2016-12-28 22:21] LABS: PTT 95 SEC (25-37)
[2016-12-29 00:14] VITALS: BP 120/62
[2016-12-29 05:29] LABS: ABSOLUTE BASOPHIL COUNT 0 /CUMM (0.0-0.2); ABSOLUTE EOSINOPHIL COUNT 0.1 /CUMM (0.0-0.7); ABSOLUTE GRANULOCYTE CT 6.1 /CUMM (1.4-6.5); ABSOLUTE LYMPH COUNT 2.1 /CUMM (1.2-3.4); ABSOLUTE MONOCYTE COUNT 0.5 /CUMM (0.10-0.60); BASOPHIL % 0.4 % (0.0-2.0); EOSINOPHIL % 1.5 % (0-5); HEMATOCRIT 33.1 % (37-47); MEAN CORPUSCULAR HGB 28.9 PG (27.0-31.0); MEAN CORPUSCULAR HGB CONC 33.5 G/DL (33.0-37.0); MEAN CORPUSCULAR VOLUME 86.2 FL (81.0-99.0); MEAN PLATELET VOLUME 10.3 FL (7.4-10.4); PLATELET COUNT 125 /CUMM (130-400); RBC DISTRIBUTION WIDTH 13.8 % (11.5-14.5); RED BLOOD CELL CT 3.84 /CUMM (4.20-5.40); WHITE BLOOD CELL COUNT 8.9 /CUMM (4.8-10.8)
[2016-12-29 05:40] LABS: PT 14.8 SEC (9.4-12.5)
[2016-12-29 06:05] LABS: PTT 113 SEC (25-37)
[2016-12-29 08:55] VITALS: BP 132/68
--- NOTE | 2016-12-29 12:05 | PN- Nephrology ---
Assessment/Plan Assessment: CKD stage 4-5: Baseline creatinine was in the threes last year. We will rechallenge her outpatient call center recruiter to ascertain her more recent baseline creatinine; apparently there have not been any discussions about the impending need for renal replacement therapy. KELSIE: I suspect due to intravascular depletion from the recent addition of metolazone to her regimen of torsemide. The patient reports that her edema resolved metolazone was added however she Became Weak and Lightheaded. I would hold her diuretics for the weekend. Would stop the IV fluids to avoid precipitating congestive heart failure, as the patient has a history of CHF with a hospitalization one year ago with anasarca/volume overload. There is no emergent need for dialysis at this point in time. Would hold warfarin in case we decide to initiate dialysis early next week after discussions with her outpatient call center recruiter; okay to use heparin drip. Hypokalemia: I suspect due to diuretics. Agree with repletion as ordered. Check daily labs. Suggestion: DC IV fluids Hold diuretics for the week Avoid warfarin in case we need to place a dialysis catheter early next week Check hepatitis B panel Subjective Subjective: No acute events Taking by mouth Lightheadedness is better Review of Systems: Appetite has not been great but is a bit better today No shortness of breath or edema Objective Vital Signs and I&Os Vital Signs Date Time Temp Pulse Resp B/P Pulse O2 O2 Flow FiO2 Ox Delivery Rate 12/29 0858 70 132/68 12/29 0855 97.7 70 20 132/68 95 12/29 0014 97.5 71 18 120/62 96 Room Air 12/29 0002 71 120/62 12/28 1600 97.2 71 18 130/60 96 Room Air 12/28 1412 96.0 79 20 126/60 98 Room Air Intake & Output 12/29 1600 12/29 0400 12/28 1600 12/28 0400 12/27 1600 12/27 0400 Intake Total 122 309 3256 Output Total 1100 1200 150 Balance -500 -900 850 Intake, IV 600 1000 Intake, Oral 300 Output, Urine 1100 1200 150 Patient 139 lb Weight Physical Exam: General: NAD, A+O x3. HEENT: NC/AT. No icterus. Moist mucosa Neck: negative for ANDRE, JVD CV: RRR, no m/r/g Pulm: CTAB, no rales Abd: soft, NT/ND, negative renal bruits Lower Ext: neg edema or chronic venous changes Upper Ext: no AVFs or AVGs Back: negative for CVA tenderness Neuro: neg tremor, asterixis Skin: no rash, jaundice : no sanchez catheter Current Medications: Current Medications Sig/Madisyn Start time Last Medication Dose Route Stop Time Status Admin Acetaminophen 650 MG Q6P PRN 12/28 1145 AC PO Acetaminophen 1,000 MG Q6P PRN 12/28 1145 AC IV Calcitriol 0.25 MCG 12/31 1000 AC PO Carvedilol 12.5 MG BID 12/28 1035 AC 12/29 PO 0858 Heparin Sodium 0 .STK-MED ONE 12/28 1532 DC (Porcine) .ROUTE Heparin Sodium 25,000 UNIT Q24H 12/28 1345 AC 12/28 (Porcine) IV 1454 Sodium Chloride 500 ML Insulin Aspart 0 TIDAC 12/28 1700 AC 12/29 SC 0858 Morphine Sulfate 1 MG Q6-PRN PRN 12/28 1145 AC IV Potassium Chloride 20 MEQ DAILY 12/29 1000 CAN PO Potassium Chloride 40 MEQ Q13H 12/28 1030 DC 12/28 Sodium Chloride 1,000 ML IV 1106 Sodium Chloride 1,000 ML Q13H 12/28 1415 AC 12/29 IV 0756 Results Pertinent Lab Results: Laboratory Tests 12/29 12/29 12/29 12/28 0450 0450 0205 2146 Chemistry Sodium (137 - 145 mmol/L) 140 Potassium (3.5 - 5.1 mmol/L) 3.2 L Chloride (98 - 107 mmol/L) 100 Carbon Dioxide (22 - 30 mmol/L) 22 Anion Gap (5 - 16) 18 H BUN (7 - 17 mg/dL) 118 *H Creatinine (0.5 - 1.0 mg/dL) 4.5 H Estimated GFR (>60 ml/min) 9 L BUN/Creatinine Ratio (7 - 25 %) 26.2 H Lactic Acid (0.7 - 2.1 mmol/L) 2.1 2.8 H Calcium (8.4 - 10.2 mg/dL) 8.2 L Coagulation PT (9.4 - 12.5 SEC) 14.8 H INR (0.90 - 1.19) 1.41 H APTT (25 - 37 SEC) 113 *H 95 H Hematology CBC w Diff NO MAN DIFF REQ WBC (4.8 - 10.8 /CUMM) 8.9 RBC (4.20 - 5.40 /CUMM) 3.84 L Hgb (12.0 - 16.0 G/DL) 11.1 L Hct (37 - 47 %) 33.1 L MCV (81.0 - 99.0 FL) 86.2 MCH (27.0 - 31.0 PG) 28.9 RDW (11.5 - 14.5 %) 13.8 Plt Count (130 - 400 /CUMM) 125 L MPV (7.4 - 10.4 FL) 10.3 Gran % (42.2 - 75.2 %) 69.0 Lymphocytes % (20.5 - 51.1 %) 23.5 Monocytes % (1.7 - 9.3 %) 5.6 Eosinophils % (0 - 5 %) 1.5 Basophils % (0.0 - 2.0 %) 0.4 Absolute Granulocytes (1.4 - 6.5 /CUMM) 6.1 Absolute Lymphocytes (1.2 - 3.4 /CUMM) 2.1 Absolute Monocytes (0.10 - 0.60 /CUMM) 0.5 Absolute Eosinophils (0.0 - 0.7 /CUMM) 0.1 Absolute Basophils (0.0 - 0.2 /CUMM) 0 PUBS MCHC (33.0 - 37.0 G/DL) 33.5 12/28 12/28 12/28 12/28 1825 1810 1405 1025 Chemistry Sodium (137 - 145 mmol/L) 139 Potassium (3.5 - 5.1 mmol/L) 3.5 Chloride (98 - 107 mmol/L) 100 Carbon Dioxide (22 - 30 mmol/L) 19 L Anion Gap (5 - 16) 19 H BUN (7 - 17 mg/dL) 128 *H Creatinine (0.5 - 1.0 mg/dL) 4.4 H Estimated GFR (>60 ml/min) 10 L BUN/Creatinine Ratio (7 - 25 %) 29.1 H Lactic Acid (0.7 - 2.1 mmol/L) 2.4 H 3.2 H 2.9 H Phosphorus (2.5 - 4.5 mg/dL) 6.4 H Magnesium (1.6 - 2.3 mg/dL) 1.7 12/28 12/28 0821 0758 Chemistry Sodium (137 - 145 mmol/L) 136 L Potassium (3.5 - 5.1 mmol/L) 3.4 L Chloride (98 - 107 mmol/L) 92 L Carbon Dioxide (22 - 30 mmol/L) 23 Anion Gap (5 - 16) 20 H BUN (7 - 17 mg/dL) 137 *H Creatinine (0.5 - 1.0 mg/dL) 4.9 H Estimated GFR (>60 ml/min) 8 L BUN/Creatinine Ratio (7 - 25 %) 24.5 Glucose (65 - 99 mg/dL) 203 H Lactic Acid (0.7 - 2.1 mmol/L) 2.9 H Calcium (8.4 - 10.2 mg/dL) 9.1 Magnesium (1.6 - 2.3 mg/dL) 2.0 Total Bilirubin (0.2 - 1.3 mg/dL) 0.6 AST (14 - 36 U/L) 18 ALT (9 - 52 U/L) 18 Alkaline Phosphatase (<127 U/L) 70 Troponin I (< 0.11 ng/ml) 0.03 Uup-T-Ikpvkbvqrrt Pept (<125 pg/mL) 3380 H Total Protein (6.3 - 8.2 g/dL) 7.6 Albumin (3.5 - 5.0 g/dL) 4.1 Globulin (1.9 - 4.2 gm/dL) 3.5 Albumin/Globulin Ratio (1.1 - 2.2 %) 1.2 Coagulation PT (9.4 - 12.5 SEC) 12.4 INR (0.90 - 1.19) 1.18 APTT (25 - 37 SEC) 26 Hematology CBC w Diff NO MAN DIFF REQ WBC (4.8 - 10.8 /CUMM) 8.4 RBC (4.20 - 5.40 /CUMM) 4.32 Hgb (12.0 - 16.0 G/DL) 12.6 Hct (37 - 47 %) 37.0 MCV (81.0 - 99.0 FL) 85.6 MCH (27.0 - 31.0 PG) 29.1 RDW (11.5 - 14.5 %) 13.7 Plt Count (130 - 400 /CUMM) 152 MPV (7.4 - 10.4 FL) 9.9 Gran % (42.2 - 75.2 %) 67.7 Lymphocytes % (20.5 - 51.1 %) 23.2 Monocytes % (1.7 - 9.3 %) 7.1 Eosinophils % (0 - 5 %) 1.6 Basophils % (0.0 - 2.0 %) 0.4 Absolute Granulocytes (1.4 - 6.5 /CUMM) 5.7 Absolute Lymphocytes (1.2 - 3.4 /CUMM) 2.0 Absolute Monocytes (0.10 - 0.60 /CUMM) 0.6 Absolute Eosinophils (0.0 - 0.7 /CUMM) 0.1 Absolute Basophils (0.0 - 0.2 /CUMM) 0 PUBS MCHC (33.0 - 37.0 G/DL) 34.0 Urines Urine Color (YEL,AMB,STR) STRAW Urine Clarity (CLEAR) HAZY H Urine pH (5.0 - 8.0) 6.0 Ur Specific L[place] (1.001 - 1.035) 1.010 Urine Protein (NEG,<30 MG/DL) NEG Urine Ketones (NEG) NEG Urine Nitrite (NEG) NEG Urine Bilirubin (NEG) NEG Urine Urobilinogen (0.1 - 1.0 EU/dl) 0.2 Ur Leukocyte Esterase (NEG) SMALL H Ur Microscopic SEDIMENT EXAMINED Urine WBC (0 - 2 /HPF) 5-10 H Ur Epithelial Cells (NONE,FEW) MOD H Urine Hemoglobin (NEG) NEG Urine Glucose (N MG/DL) NEG
[2016-12-29 12:51] LABS: PTT 70 SEC (25-37)
--- NOTE | 2016-12-29 14:26 | PN- Att Addend ---
Attending Addendum Attending Brief Note 86-year-old female who has been admitted to the floor with acute on chronic renal failure secondary to weakness. Patient has a history of diastolic congestive heart failure. Nephrology on board and recommendations are being closely monitored. For now we have held the IV fluids and diuretics and voiding warfarin for possible placement of the dialysis catheter next week. Plan discussed with the resident.
[2016-12-29 16:56] VITALS: BP 130/70
[2016-12-30 00:22] VITALS: BP 138/68
[2016-12-30 03:03] LABS: PTT 50 SEC (25-37)
--- NOTE | 2016-12-30 07:58 | PN- Housestaff ---
JEAN-PIERRE TERRAZAS 12/30/16 0757: Subjective Follow-up For: End-stage renal disease AFib on Coumadin DM Hypokalemia Complaints: no complaints Subjective: Interval history: This morning the patient denies any events overnight. He fevers, chills, chest pain, palpitations, difficulty breathing, abdominal pain, bloody urine/stool. Patient is concerned about transportation to dialysis sessions after discharge. Review of Systems Constitutional: Reports: see HPI. EENTM: Reports: no symptoms. Cardiovascular: Reports: no symptoms. Respiratory: Reports: no symptoms. Gastrointestinal: Reports: no symptoms. Musculoskeletal: Reports: no symptoms. Hematologic/Endocrine: Reports: no symptoms. Objective Last 24 Hrs of Vital Signs/I&O Vital Signs Date Time Temp Pulse Resp B/P Pulse O2 O2 Flow FiO2 Ox Delivery Rate 12/30 0940 84 122/60 12/30 0917 97.9 84 20 122/60 94 Room Air 12/30 0022 98.3 81 20 138/68 96 12/30 0000 Room Air 12/29 2134 82 118/70 12/29 1656 97.8 74 20 130/70 97 Room Air Intake & Output 12/30 1600 12/30 0800 12/30 0000 Intake Total 440 654 Output Total 300 Balance 440 354 Intake, IV 200 54 Intake, Oral 240 600 Output, Urine 300 Physical Exam General Appearance: Alert, Cooperative, No Acute Distress Skin: No Breakdown, No Significant Lesion HEENT: Mucous Membr. moist/pink Cardiovascular: Normal S1, Normal S2, Irregular rhythm Lungs: Normal Air Movement, Diminished breath sounds in the basilar regions Abdomen: Normal Bowel Sounds, Soft, No Tenderness Extremities: No Cyanosis, No Edema, Normal Pulses Vascular: Pulses Symmetrical Current Medications: Current Medications Sig/Madisyn Start time Last Medication Dose Route Stop Time Status Admin Acetaminophen 650 MG Q6P PRN 12/28 1145 AC PO Acetaminophen 1,000 MG Q6P PRN 12/28 1145 AC IV Calcitriol 0.25 MCG 12/31 1000 AC PO Carvedilol 12.5 MG BID 12/28 1035 AC 12/30 PO 0940 Diclofenac Sodium 1 ELOISE 4 TIMES/DAY 12/29 1421 AC 12/30 TOP 0940 Heparin Sodium 2,500 UNIT ONCE ONE 12/30 1145 DC 12/30 (Porcine) IV 12/30 1146 1140 Heparin Sodium 25,000 UNIT Q24H 12/28 1345 AC 12/30 (Porcine) IV 1140 Sodium Chloride 500 ML Insulin Aspart 0 TIDAC 12/28 1700 AC 12/30 SC 0830 Morphine Sulfate 1 MG Q6-PRN PRN 12/28 1145 AC IV Potassium Chloride 40 MEQ ONCE ONE 12/30 1215 DC PO 12/30 1216 Warfarin Sodium 7.5 MG COUMADIN 1700 ONE 12/29 1830 CAN PO 12/29 1831 Last 24 Hrs of Lab/Zachary Results Last 24 Hrs of Labs/Mics: Laboratory Tests 12/30/16 0935: Anion Gap 17 H, Estimated GFR 11 L, BUN/Creatinine Ratio 28.5 H, Magnesium 1.6, APTT 58 H, CBC w Diff NO MAN DIFF REQ, RBC 3.72 L, MCV 85.6, MCH 29.5, RDW 14.1, MPV 10.5 H, Gran % 76.4 H, Lymphocytes % 16.1 L, Monocytes % 6.9, Eosinophils % 0.5, Basophils % 0.1, Absolute Granulocytes 8.7 H, Absolute Lymphocytes 1.8, Absolute Monocytes 0.8 H, Absolute Eosinophils 0.1, Absolute Basophils 0, PUBS MCHC 34.4, Hepatitis A IgM Ab Pending, Hep Bs Antigen Pending, Hep B Core IgM Ab Conf Pending, Hepatitis C Antibody Pending 12/30/16 0220: APTT 50 H Assessment/Plan Assessment: 86-year-old lady with a PMH of A. fib on Coumadin, diastolic CHF, however, DM, ESRD awaiting hemodialysis who presented with URI symptoms. Problem list: 1. ESRD 2. A. fib currently off Coumadin 3. DM 4. Hypokalemia Plan: 1. ESRD * Continue to monitor her renal function with tentative plans for dialysis catheter placement * Diuretics have been held throughout the weekend with no evidence of congestive heart failure * Hepatitis panel negative 2. A. fib currently off Coumadin * Coumadin on hold at this time. Bridging with heparin pending possible dialysis catheter placement 3. DM * Consistent carbohydrate 3 diet. Continue with Accu-Cheks 4. Hypokalemia * Potassium of 3.0. In the setting of ESRD, will dose 40 mg K Dur 1, recheck level this evening and we dose for target above 3.5 5. DVT prophylaxis * Heparin 6. CODE STATUS * DNR/DNI Problem List: 1. CKD (chronic kidney disease) 2. Afib 3. Hypokalemia Pain Ratin Pain Location: Knee Pain Goal: Pain 4 or less Pain Plan: Voltaren gel Tomorrow's Labs & Rationales: CBC: Trending H&H BEP: Trending renal function DVT/Prophylaxis: pharmacological Consulting Request: Consulting Specialty: Nephrology Consulting Physician: Dr. Chua Reason for Consult: KELSIE on CKD MEHUL HUNT,[facility] 12/30/16 1259: Attending MD Review Statement Attending Statement Attending MD Statement: examined this patient, discuss w/resident/PA/DENTAL SALES REPRESENTATIVE, agreed w/resident/PA/DENTAL SALES REPRESENTATIVE, reviewed EMR data (avail), discussed with nursing, discussed with case mgmt, reviewed images, amended to note Attending Assessment/Plan: 86-year-old female who has been admitted to the floor with acute on chronic renal failure secondary to weakness. Patient has a history of diastolic congestive heart failure. Nephrology on board and recommendations are being closely monitored. For now we have held the IV fluids and diuretics and avoiding warfarin for possible placement of the dialysis catheter next week. Plan discussed with the resident.
[2016-12-30 09:17] VITALS: BP 122/60
[2016-12-30 10:09] LABS: ABSOLUTE BASOPHIL COUNT 0 /CUMM (0.0-0.2); ABSOLUTE EOSINOPHIL COUNT 0.1 /CUMM (0.0-0.7); ABSOLUTE GRANULOCYTE CT 8.7 /CUMM (1.4-6.5); ABSOLUTE LYMPH COUNT 1.8 /CUMM (1.2-3.4); ABSOLUTE MONOCYTE COUNT 0.8 /CUMM (0.10-0.60); BASOPHIL % 0.1 % (0.0-2.0); EOSINOPHIL % 0.5 % (0-5); GRANULOCYTE % 76.4 % (42.2-75.2); HEMATOCRIT 31.8 % (37-47); MEAN CORPUSCULAR HGB 29.5 PG (27.0-31.0); MEAN CORPUSCULAR HGB CONC 34.4 G/DL (33.0-37.0); MEAN CORPUSCULAR VOLUME 85.6 FL (81.0-99.0); MEAN PLATELET VOLUME 10.5 FL (7.4-10.4); PLATELET COUNT 112 /CUMM (130-400); RBC DISTRIBUTION WIDTH 14.1 % (11.5-14.5); RED BLOOD CELL CT 3.72 /CUMM (4.20-5.40); WHITE BLOOD CELL COUNT 11.3 /CUMM (4.8-10.8)
[2016-12-30 10:18] LABS: PTT 58 SEC (25-37)
[2016-12-30 16:16] VITALS: BP 112/60
[2016-12-30 17:57] LABS: PTT 91 SEC (25-37)
[2016-12-31 00:35] VITALS: BP 142/74
[2016-12-31 05:40] LABS: PTT 114 SEC (25-37)
[2016-12-31 07:58] LABS: ABSOLUTE BASOPHIL COUNT 0 /CUMM (0.0-0.2); ABSOLUTE EOSINOPHIL COUNT 0 /CUMM (0.0-0.7); ABSOLUTE GRANULOCYTE CT 8.7 /CUMM (1.4-6.5); ABSOLUTE LYMPH COUNT 1.7 /CUMM (1.2-3.4); ABSOLUTE MONOCYTE COUNT 0.7 /CUMM (0.10-0.60); BASOPHIL % 0.3 % (0.0-2.0); EOSINOPHIL % 0.3 % (0-5); GRANULOCYTE % 78.1 % (42.2-75.2); HEMATOCRIT 30.7 % (37-47); MEAN CORPUSCULAR HGB 29.2 PG (27.0-31.0); MEAN CORPUSCULAR HGB CONC 33.8 G/DL (33.0-37.0); MEAN CORPUSCULAR VOLUME 86.5 FL (81.0-99.0); MEAN PLATELET VOLUME 10.6 FL (7.4-10.4); PLATELET COUNT 103 /CUMM (130-400); RBC DISTRIBUTION WIDTH 14.6 % (11.5-14.5); RED BLOOD CELL CT 3.55 /CUMM (4.20-5.40); WHITE BLOOD CELL COUNT 11.2 /CUMM (4.8-10.8)
[2016-12-31 08:21] LABS: PT 16.1 SEC (9.4-12.5)
[2016-12-31 08:38] VITALS: BP 123/67
--- NOTE | 2016-12-31 09:09 | PN- Housestaff ---
JUDY HUNT,DAKOTAH 12/31/16 0909: Subjective Follow-up For: ESRD Lactic acidosis Complaints: Generalized weakness Subjective: Patient is lying bed comfortably. During weekends, there was a discussion regarding HD. She denies any fever/chills, shortness of breath, chest pain, nausea/vomiting/ diarrhea. She lives alone. She has generalized weakness Review of Systems Constitutional: Reports: weakness. Denies: chills, fever. EENTM: Reports: no symptoms. Cardiovascular: Denies: chest pain, orthopena, palpitations, peripheral edema, syncope. Respiratory: Denies: cough, short of breath, sputum production, wheezing. Gastrointestinal: Denies: abdominal pain, diarrhea, nausea, vomiting. Genitourinary: Reports: no symptoms. Musculoskeletal: Reports: no symptoms. Skin: Reports: no symptoms. Neurological/Psychological: Reports: no symptoms. Hematologic/Endocrine: Reports: no symptoms. Immunologic/Allergic: Reports: no symptoms. Objective Last 24 Hrs of Vital Signs/I&O Vital Signs Date Time Temp Pulse Resp B/P Pulse O2 O2 Flow FiO2 Ox Delivery Rate 12/31 0920 97 123/67 12/31 0838 98.1 97 20 123/67 95 Room Air 12/31 0035 98.3 86 20 142/74 94 12/30 2228 80 139/55 12/30 1616 97.6 80 20 112/60 98 Room Air Intake & Output 12/31 1600 12/31 0800 12/31 0000 Intake Total 141.40 400 Output Total Balance 141.40 400 Intake, IV 141.40 Intake, Oral 400 Physical Exam General Appearance: Alert, Oriented X3, Cooperative, No Acute Distress Skin: No Rashes, No Breakdown, No Significant Lesion HEENT: Atraumatic, PERRLA, EOMI, dry mucosa Neck: Supple, No JVD, No LAD Lymphatic: Cervical nl Cardiovascular: Regular Rate, Normal S1, Normal S2, No Murmurs Lungs: Clear to Auscultation, Normal Air Movement Abdomen: Normal Bowel Sounds, Soft, No Tenderness Neurological: Normal Speech, Strength at 5/5 X4 Ext, Normal Tone Extremities: No Edema, Normal Pulses, No Tenderness/Swelling Vascular: Normal Pulses, Pulses Symmetrical Current Medications: Current Medications Sig/Madisyn Start time Last Medication Dose Route Stop Time Status Admin Acetaminophen 650 MG Q6P PRN 12/28 1145 AC PO Acetaminophen 1,000 MG Q6P PRN 12/28 1145 AC IV Calcitriol 0.25 MCG 12/31 1000 AC 12/31 PO 0920 Carvedilol 12.5 MG BID 12/28 1035 AC 12/31 PO 0920 Dextrose/Sodium 1,000 ML Q13H 12/31 1115 DC Chloride IV Diclofenac Sodium 1 ELOISE 4 TIMES/DAY 12/29 1421 AC 12/31 TOP 0920 Heparin Sodium 25,000 UNIT Q24H 12/28 1345 AC 12/30 (Porcine) IV 2130 Sodium Chloride 500 ML Insulin Aspart 0 TIDAC 12/31 1200 AC SC Insulin Aspart 0 TIDAC 12/28 1700 DC 12/31 SC 0805 Insulin Human Regular 0 Q6 12/31 1200 CAN SC Morphine Sulfate 1 MG Q6-PRN PRN 12/28 1145 AC IV Potassium Chloride 40 MEQ ONCE ONE 12/31 0115 DC 12/31 PO 12/31 0116 0310 Potassium Chloride 40 MEQ ONCE ONE 12/30 1215 DC 12/30 PO 12/30 1216 1250 Warfarin Sodium 7.5 MG COUMADIN 1700 ONE 12/31 1700 AC PO 12/31 1701 Last 24 Hrs of Lab/Zachary Results Last 24 Hrs of Labs/Mics: Laboratory Tests 12/31/16 1108: APTT Pending 12/31/16 1100: APTT Cancelled 12/31/16 0645: Anion Gap 13, Estimated GFR 13 L, BUN/Creatinine Ratio 27.1 H, PT 16.1 H, INR 1.54 H, CBC w Diff NO MAN DIFF REQ, RBC 3.55 L, MCV 86.5, MCH 29.2, RDW 14.6 H, MPV 10.6 H, Gran % 78.1 H, Lymphocytes % 14.8 L, Monocytes % 6.5, Eosinophils % 0.3, Basophils % 0.3, Absolute Granulocytes 8.7 H, Absolute Lymphocytes 1.7, Absolute Monocytes 0.7 H, Absolute Eosinophils 0, Absolute Basophils 0, PUBS MCHC 33.8 12/31/16 0456: APTT 114 *H 12/30/16 1720: Anion Gap 17 H, Estimated GFR 12 L, BUN/Creatinine Ratio 28.9 H, APTT 91 H Lines/Diet/Fluids Lines: peripheral lines Assessment/Plan Assessment: 86-year-old lady with a PMH of A. fib on Coumadin, diastolic CHF, however, DM, ESRD awaiting hemodialysis who presented with URI symptoms. Problem list: 1. ESRD 2. A. fib currently off Coumadin 3. DM 4. Hypokalemia Plan: 1. ESRD * No need for urgent dialysis now per nephrology, will resume po diuretics from tomorrow. * Hold metolazone, resume torsemide 100mg daily from tmr following BEP. No evidence of congestive heart failure * Hepatitis panel negative 2. A. fib currently off Coumadin * Continue coumadin from today bridging with heparin 3. DM * Consistent carbohydrate 3 diet. Continue with Accu-Cheks 4. Hypokalemia * Potassium of 3.0. In the setting of ESRD, will dose 40 mg K Dur 1, recheck level this evening and we dose for target above 3.5 5. DVT prophylaxis * Heparin, coumadin 6. CODE STATUS * DNR/DNI STR placement when INR becomes therapeutic Problem List: 1. Acute kidney injury superimposed on chronic kidney disease 2. Afib 3. Diabetes mellitus Pain Ratin Pain Location: NA Pain Goal: Pain 4 or less Pain Plan: po/IV tyrenol IV morphine Tomorrow's Labs & Rationales: CBC / INR : on IV heparin & po coumadin BEP : KELSIE on CKD DVT/Prophylaxis: pharmacological Consulting Request: Consulting Specialty: Nephrology Consulting Physician: Dr. Chua Reason for Consult: KELSIE on CKD Discharge Plan Stable for Discharge? No NELIA BRIDGES MD 12/31/16 1441: Attending Review Statement Attending Statement Attending MD Statement: examined this patient, discuss w/resident/PA/TRAIN DRIVER, agreed w/resident/PA/TRAIN DRIVER, reviewed EMR data (avail), discussed with nursing, discussed with case mgmt, amended to note Attending Assessment/Plan: The patient was seen and discussed with house staff and Nephrology. Cr decreased. Will postpone dialysis at present. Spoke with IR and cancelled catheter.
--- NOTE | 2016-12-31 11:36 | PN- Nephrology ---
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 Back to baseline creatinine. No clear uremic symptoms to warrant urgent start for chronic HD. I spoke in detail to the patient and her daughter re: chronic dialysis and her options. Given her age and comorbidities, it's not clear that it would improve her quality of life. Given her frailty, in-center hemodialysis would be the more feasible dialysis option if chronic dialysis were to be pursued. She has f/u with her outpatient Color Mixer soon at which point a decision can be made re: dialysis. KELSIE - Appears to have been 2/2 overdiuresis. Can hold diuretics today, but may be able to resume tomorrow. She may have been very sensitive to the metolazone which was recently added. Acidosis - Bicarb at goal. Suggestion: -No need for initiation of chronic dialysis during this admission -Pt to f/u with Dr. Josue as an outpatient - I will reach out to him re: this admission -Would preserve non-dominant arm from blood draws, IV's, BP checks -Hold diuretics today - may need to restart tomorrow -From a renal standpoint, would be reasonable to bridge back to coumadin Case discussed with Dr. Clayton Subjective Subjective: Pt without complaints SCr 3.4 Pt's daughter says she has an appt with Dr. Josue on 01/09. Not on IVF or diuretics Objective Vital Signs and I&Os Vital Signs Date Time Temp Pulse Resp B/P Pulse O2 O2 Flow FiO2 Ox Delivery Rate 12/31 0920 97 123/67 12/31 0838 98.1 97 20 123/67 95 Room Air 12/31 0035 98.3 86 20 142/74 94 12/30 2228 80 139/55 12/30 1616 97.6 80 20 112/60 98 Room Air Intake & Output 12/31 1600 12/31 0400 12/30 1600 12/30 0400 12/29 1600 12/29 040 Intake Total 141.40 400 1421.6 654 1596.6 300 Output Total 300 1300 1200 Balance 141.40 400 1421.6 354 296.6 -900 Intake, IV 141.40 381.6 54 1116.6 Intake, Oral 400 1040 600 480 300 Number 1 Bowel Movements Output, Urine 300 1300 1200 Physical Exam: Gen - OK appearing HEENT - JVP not clearly up CV - RRR Chest - some coarse breath sounds but no crackles Abd - soft, nontender Ext - trace edema Neuro - alert, conversive Current Medications: Current Medications Sig/Madisyn Start time Last Medication Dose Route Stop Time Status Admin Acetaminophen 650 MG Q6P PRN 12/28 1145 AC PO Acetaminophen 1,000 MG Q6P PRN 12/28 1145 AC IV Calcitriol 0.25 MCG 12/31 1000 AC 12/31 PO 0920 Carvedilol 12.5 MG BID 12/28 1035 AC 12/31 PO 0920 Dextrose/Sodium 1,000 ML Q13H 12/31 1115 AC Chloride IV Diclofenac Sodium 1 ELOISE 4 TIMES/DAY 12/29 1421 AC 12/31 TOP 0920 Heparin Sodium 2,500 UNIT ONCE ONE 12/30 1145 DC 12/30 (Porcine) IV 12/30 1146 1140 Heparin Sodium 5,000 UNIT .STK-MED ONE 12/30 1133 DC (Porcine) IV 12/30 1134 Heparin Sodium 25,000 UNIT Q24H 12/28 1345 AC 12/30 (Porcine) IV 2130 Sodium Chloride 500 ML Insulin Aspart 0 TIDAC 12/28 1700 DC 12/31 SC 0805 Insulin Human Regular 0 Q6 12/31 1200 AC SC Morphine Sulfate 1 MG Q6-PRN PRN 12/28 1145 AC IV Potassium Chloride 40 MEQ ONCE ONE 12/31 0115 DC 12/31 PO 12/31 0116 0310 Potassium Chloride 40 MEQ ONCE ONE 12/30 1215 DC 12/30 PO 12/30 1216 1250 Results Pertinent Lab Results: Laboratory Tests 12/31 12/31 12/31 1108 1100 0645 Chemistry Sodium (137 - 145 mmol/L) 139 Potassium (3.5 - 5.1 mmol/L) 3.8 Chloride (98 - 107 mmol/L) 101 Carbon Dioxide (22 - 30 mmol/L) 24 Anion Gap (5 - 16) 13 BUN (7 - 17 mg/dL) 92 H Creatinine (0.5 - 1.0 mg/dL) 3.4 H Estimated GFR (>60 ml/min) 13 L BUN/Creatinine Ratio (7 - 25 %) 27.1 H Coagulation PT (9.4 - 12.5 SEC) 16.1 H INR (0.90 - 1.19) 1.54 H APTT Pending Cancelled Hematology CBC w Diff NO MAN DIFF REQ WBC (4.8 - 10.8 /CUMM) 11.2 H RBC (4.20 - 5.40 /CUMM) 3.55 L Hgb (12.0 - 16.0 G/DL) 10.4 L Hct (37 - 47 %) 30.7 L MCV (81.0 - 99.0 FL) 86.5 MCH (27.0 - 31.0 PG) 29.2 RDW (11.5 - 14.5 %) 14.6 H Plt Count (130 - 400 /CUMM) 103 L MPV (7.4 - 10.4 FL) 10.6 H Gran % (42.2 - 75.2 %) 78.1 H Lymphocytes % (20.5 - 51.1 %) 14.8 L Monocytes % (1.7 - 9.3 %) 6.5 Eosinophils % (0 - 5 %) 0.3 Basophils % (0.0 - 2.0 %) 0.3 Absolute Granulocytes (1.4 - 6.5 /CUMM) 8.7 H Absolute Lymphocytes (1.2 - 3.4 /CUMM) 1.7 Absolute Monocytes (0.10 - 0.60 /CUMM) 0.7 H Absolute Eosinophils (0.0 - 0.7 /CUMM) 0 Absolute Basophils (0.0 - 0.2 /CUMM) 0 PUBS MCHC (33.0 - 37.0 G/DL) 33.8 12/31 12/30 12/30 12/30 0456 1720 0935 0220 Chemistry Sodium (137 - 145 mmol/L) 137 139 Potassium (3.5 - 5.1 mmol/L) 3.2 L 3.0 L Chloride (98 - 107 mmol/L) 95 L 100 Carbon Dioxide (22 - 30 mmol/L) 25 21 L Anion Gap (5 - 16) 17 H 17 H BUN (7 - 17 mg/dL) 104 *H 111 *H Creatinine (0.5 - 1.0 mg/dL) 3.6 H 3.9 H Estimated GFR (>60 ml/min) 12 L 11 L BUN/Creatinine Ratio (7 - 25 %) 28.9 H 28.5 H Magnesium (1.6 - 2.3 mg/dL) 1.6 Coagulation APTT (25 - 37 SEC) 114 *H 91 H 58 H 50 H Hematology CBC w Diff NO MAN DIFF REQ WBC (4.8 - 10.8 /CUMM) 11.3 H RBC (4.20 - 5.40 /CUMM) 3.72 L Hgb (12.0 - 16.0 G/DL) 11.0 L Hct (37 - 47 %) 31.8 L MCV (81.0 - 99.0 FL) 85.6 MCH (27.0 - 31.0 PG) 29.5 RDW (11.5 - 14.5 %) 14.1 Plt Count (130 - 400 /CUMM) 112 L MPV (7.4 - 10.4 FL) 10.5 H Gran % (42.2 - 75.2 %) 76.4 H Lymphocytes % (20.5 - 51.1 %) 16.1 L Monocytes % (1.7 - 9.3 %) 6.9 Eosinophils % (0 - 5 %) 0.5 Basophils % (0.0 - 2.0 %) 0.1 Absolute Granulocytes (1.4 - 6.5 /CUMM) 8.7 H Absolute Lymphocytes (1.2 - 3.4 /CUMM) 1.8 Absolute Monocytes (0.10 - 0.60 /CUMM) 0.8 H Absolute Eosinophils (0.0 - 0.7 /CUMM) 0.1 Absolute Basophils (0.0 - 0.2 /CUMM) 0 PUBS MCHC (33.0 - 37.0 G/DL) 34.4 Serology Hepatitis A IgM Ab (NONREACTIVE) NONREACTIVE Hep Bs Antigen (NONREACTIVE) NONREACTIVE Hep B Core IgM Ab Conf (NONREACTIVE) NONREACTIVE Hepatitis C Antibody (NONREACTIVE) NONREACTIVE 12/29 12/29 12/29 12/29 1220 0450 0450 0205 Chemistry Sodium (137 - 145 mmol/L) 140 Potassium (3.5 - 5.1 mmol/L) 3.2 L Chloride (98 - 107 mmol/L) 100 Carbon Dioxide (22 - 30 mmol/L) 22 Anion Gap (5 - 16) 18 H BUN (7 - 17 mg/dL) 118 *H Creatinine (0.5 - 1.0 mg/dL) 4.5 H Estimated GFR (>60 ml/min) 9 L BUN/Creatinine Ratio (7 - 25 %) 26.2 H Lactic Acid (0.7 - 2.1 mmol/L) 2.1 Calcium (8.4 - 10.2 mg/dL) 8.2 L Coagulation PT (9.4 - 12.5 SEC) 14.8 H INR (0.90 - 1.19) 1.41 H APTT (25 - 37 SEC) 70 H 113 *H Hematology CBC w Diff NO MAN DIFF REQ WBC (4.8 - 10.8 /CUMM) 8.9 RBC (4.20 - 5.40 /CUMM) 3.84 L Hgb (12.0 - 16.0 G/DL) 11.1 L Hct (37 - 47 %) 33.1 L MCV (81.0 - 99.0 FL) 86.2 MCH (27.0 - 31.0 PG) 28.9 RDW (11.5 - 14.5 %) 13.8 Plt Count (130 - 400 /CUMM) 125 L MPV (7.4 - 10.4 FL) 10.3 Gran % (42.2 - 75.2 %) 69.0 Lymphocytes % (20.5 - 51.1 %) 23.5 Monocytes % (1.7 - 9.3 %) 5.6 Eosinophils % (0 - 5 %) 1.5 Basophils % (0.0 - 2.0 %) 0.4 Absolute Granulocytes (1.4 - 6.5 /CUMM) 6.1 Absolute Lymphocytes (1.2 - 3.4 /CUMM) 2.1 Absolute Monocytes (0.10 - 0.60 /CUMM) 0.5 Absolute Eosinophils (0.0 - 0.7 /CUMM) 0.1 Absolute Basophils (0.0 - 0.2 /CUMM) 0 PUBS MCHC (33.0 - 37.0 G/DL) 33.5 12/28 12/28 12/28 12/28 2146 1825 1810 1405 Chemistry Sodium (137 - 145 mmol/L) 139 Potassium (3.5 - 5.1 mmol/L) 3.5 Chloride (98 - 107 mmol/L) 100 Carbon Dioxide (22 - 30 mmol/L) 19 L Anion Gap (5 - 16) 19 H BUN (7 - 17 mg/dL) 128 *H Creatinine (0.5 - 1.0 mg/dL) 4.4 H Estimated GFR (>60 ml/min) 10 L BUN/Creatinine Ratio (7 - 25 %) 29.1 H Lactic Acid (0.7 - 2.1 mmol/L) 2.8 H 2.4 H 3.2 H Phosphorus (2.5 - 4.5 mg/dL) 6.4 H Magnesium (1.6 - 2.3 mg/dL) 1.7 Coagulation APTT (25 - 37 SEC) 95 H Imaging/Other Studies: US RETROPERITONEAL COMPLETE (RENAL) CLINICAL INFORMATION: Worsening renal function. Acute kidney injury.. COMPARISON: 11/07/2015 TECHNIQUE: Real-time imaging of the kidneys and bladder. FINDINGS: RIGHT KIDNEY: 10 55.2 x 5.8 cm (SAG x AP x TRV). The kidney is normal in size and contour with increased echogenicity. Renal cortical thickness is normal. There is an upper pole 0.9 cm simple cyst. No calculi or solid parenchymal lesions. No hydronephrosis. LEFT KIDNEY: 10 x 5.2 x 5.8 cm (SAG x AP x TRV). The kidney is normal in size and contour with increased echogenicity. Renal cortical thickness is normal. No calculi or focal parenchymal lesions. No hydronephrosis. BLADDER: Well-distended and normal. Right ureteral jet is demonstrated; left is not. Prevoid bladder volume is 382 mL. IMPRESSION: Increased renal cortical echogenicity suggestive of medical renal disease. No hydronephrosis. No significant change from previous.. EXAM TYPE: RAD - XRY-PORTABLE CHEST XRAY EXAMINATION: XR PORTABLE CHEST CLINICAL INFORMATION: Shows of breath, nausea, cough, vomiting COMPARISON: 11/06/2015 TECHNIQUE: Portable AP view of the chest was obtained. FINDINGS: No significant interval change. No focal consolidation, pleural effusion or pneumothorax. Coarsened and reticulated interstitial lung markings, unchanged. Stable cardiomegaly. Anterior median sternotomy wires. TAVR. Mediastinal clips. Marked atherosclerosis thoracic aorta. Right chest pacer with lead projecting over the right ventricle. No acute osseous abnormality. Surgical clips project over the epigastrium. IMPRESSION: No significant interval change and no acute cardiopulmonary process. Stable cardiomegaly. Chronic coarsening of the interstitial lung markings suggestive of underlying interstitial lung disease.
[2016-12-31 12:25] LABS: PTT 40 SEC (25-37)
--- NOTE | 2016-12-31 15:50 | Transfer of Care Summary ---
Hospital Course Course Hospital Course: 86-year-old lady with PMH of A. fib s/p PM on Coumadin, diastolic CHF (EF 60-65% ), CAD s/p CABG, s/p TAVR, DM type 2, who presented on the day of admission in the [facility] ED with a chief complaint of nasal congestion, rhinnorhea, pharyngitis. She denied any fever, chest pain, palpitations, abdominal pain. She has been seeing a Test Desk Operator [place] and was recently begun on Metolazone. In the ED was noted to have an increase in Cr to 4.9 (was 3.6 in 2015) and elevated lactate level. Assessment & Plan: 1. ESRD: Nephorology consult was appreciated. 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 Diuretics were held with trial of volume repletion. She was given gentle IV NS initially. Discussion of possible dialysis was made, and she was off coumadin pending final decision about dialysis. As her Cr improved after volume repletion, there was no need for urgent dialysis per nephrology. PO torsemide 100mg daily was resumed holding metolazone. There was no evidence of acute exacerbation of congestive heart failure. Please follow up with a business team leader for further management. 2. A. fib s/p PM on coumadin: She was on IV heparin pending decision of dialysis catheter placement. As she didn't require urgent dialysis, po coumadin was resumed on 12/31. INR 1.35 on 01/01 after po coumadin 7.5mg. Continue po coumadin bridging with IV heparin goal INR 2-3. Continue rate control with coreg 12.5mg bid 3. DM: She is on Consistent carbohydrate 3 diet. Bedtime BS 282, 6am 234, novolog s/s was increased to to medium with HS cover. 4. Hypokalemia: hypokalemic 3.4 -> 3.0. After repletion, now it is resolved to K 4.0. 5. HFpEF/Rt. heart failure: Last echo 11/08/15 - EF 60-65%, mild dilatation of the right ventricular chamber is present with mild to moderate tricuspid insufficiency, mild to moderate right atrial dilatation and pulmonary hypertension with an estimated RV systolic pressure of 54 mmHg. Patient was not on acute exacerbation, stable. Continue torsemide 100mg daily with BEP monitor. Continue holding metolazone. DVT ppx: IV Heparin, po coumadin DNR/DNI STR placement when INR becomes therapeutic Assessment/Plan: See above
[2016-12-31 16:29] VITALS: BP 128/52
--- NOTE | 2016-12-31 18:00 | PN- Cardiology ---
Subjective Subjective: The patient is comfortable. No chest pain. No shortness of breath. No diaphoresis. No palpitations. Objective Vital Signs and I&Os Vital Signs Date Time Temp Pulse Resp B/P Pulse O2 O2 Flow FiO2 Ox Delivery Rate 12/31 1629 97.8 96 20 128/52 97 Room Air 12/31 1500 Room Air 12/31 0920 97 123/67 12/31 0838 98.1 97 20 123/67 95 Room Air 12/31 0035 98.3 86 20 142/74 94 12/30 2228 80 139/55 Intake & Output 12/31 1600 12/31 0800 12/31 0000 12/30 1600 12/30 0800 12/30 0000 Intake Total 751.6 141.40 400 981.6 440 654 Output Total 300 Balance 751.6 141.40 400 981.6 440 354 Intake, IV 151.6 141.40 181.6 200 54 Intake, Oral 600 400 800 240 600 Number 1 Bowel Movements Output, Urine 300 Physical Exam: Gen: The patient is in no acute distress HEENT: Normal nose, ears, and oropharynx. Pupils equal bilaterally. Conjunctiva normal. Neck: Supple with no JVD, no masses, and no thyromegaly Lungs: scattered rhonchiwith normal respiratory effort Heart: RRR, S1, S2, 1/6 systolic murmur. No peripheral edema, 2+ pulses in the lower extremities bilaterally Abdomen: Soft, nontender, no masses. No hepatomegaly. No splenomegaly Extremities: No clubbing or cyanosis. Normal muscle strength in the upper and lower extremities Skin: Normal skin turgor with no skin ulcers or lesions noted. Current Medications: Current Medications Sig/Madisyn Start time Last Medication Dose Route Stop Time Status Admin Acetaminophen 650 MG Q6P PRN 12/28 1145 AC PO Acetaminophen 1,000 MG Q6P PRN 12/28 1145 AC IV Calcitriol 0.25 MCG 12/31 1000 AC 12/31 PO 0920 Carvedilol 12.5 MG BID 12/28 1035 AC 12/31 PO 0920 Dextrose/Sodium 1,000 ML Q13H 12/31 1115 DC Chloride IV Diclofenac Sodium 1 ELOISE 4 TIMES/DAY 12/29 1421 AC 12/31 TOP 1223 Heparin Sodium 4,725 UNIT ONCE ONE 12/31 1300 DC 12/31 (Porcine) IV 12/31 1301 1321 Heparin Sodium 25,000 UNIT Q24H 12/28 1345 AC 12/31 (Porcine) IV 1321 Sodium Chloride 500 ML Insulin Aspart 0 TIDAC 12/31 1200 AC 12/31 SC 1223 Insulin Aspart 0 TIDAC 12/28 1700 DC 12/31 SC 0805 Insulin Human Regular 0 Q6 12/31 1200 CAN SC Morphine Sulfate 1 MG Q6-PRN PRN 12/28 1145 AC IV Patient Medication 1 ED .STK-MED ONE 12/31 1330 DC Teaching ED 12/31 1331 Potassium Chloride 40 MEQ ONCE ONE 12/31 0115 DC 12/31 PO 12/31 0116 0310 Torsemide 100 MG DAILY 01/01 1000 AC PO Warfarin Sodium 7.5 MG COUMADIN 1700 ONE 12/31 1700 DC PO 12/31 1701 Results Last 48 Hrs of Labs/Mics: Laboratory Tests 12/31/16 1108: APTT 40 H 12/31/16 1100: APTT Cancelled 12/31/16 0645: Anion Gap 13, Estimated GFR 13 L, BUN/Creatinine Ratio 27.1 H, PT 16.1 H, INR 1.54 H, CBC w Diff NO MAN DIFF REQ, RBC 3.55 L, MCV 86.5, MCH 29.2, RDW 14.6 H, MPV 10.6 H, Gran % 78.1 H, Lymphocytes % 14.8 L, Monocytes % 6.5, Eosinophils % 0.3, Basophils % 0.3, Absolute Granulocytes 8.7 H, Absolute Lymphocytes 1.7, Absolute Monocytes 0.7 H, Absolute Eosinophils 0, Absolute Basophils 0, PUBS MCHC 33.8 12/31/16 0456: APTT 114 *H 12/30/16 1720: Anion Gap 17 H, Estimated GFR 12 L, BUN/Creatinine Ratio 28.9 H, APTT 91 H 12/30/16 0935: Anion Gap 17 H, Estimated GFR 11 L, BUN/Creatinine Ratio 28.5 H, Magnesium 1.6, APTT 58 H, CBC w Diff NO MAN DIFF REQ, RBC 3.72 L, MCV 85.6, MCH 29.5, RDW 14.1, MPV 10.5 H, Gran % 76.4 H, Lymphocytes % 16.1 L, Monocytes % 6.9, Eosinophils % 0.5, Basophils % 0.1, Absolute Granulocytes 8.7 H, Absolute Lymphocytes 1.8, Absolute Monocytes 0.8 H, Absolute Eosinophils 0.1, Absolute Basophils 0, PUBS MCHC 34.4, Hepatitis A IgM Ab NONREACTIVE, Hep Bs Antigen NONREACTIVE, Hep B Core IgM Ab Conf NONREACTIVE, Hepatitis C Antibody NONREACTIVE 12/30/16 0220: APTT 50 H Assessment/Plan Assessment/Plan Assessment: 1. Acute on chronic renal insufficiency. 2. History of CAD 3. History of ; S/P TAVR 4. Atrial fibrillation 5. Chronic diastolic heart failure 6. DM Recommendations: * Lasix on hold for renal insufficiency * Dose warfarin for INR to 2 to 3 * Continue IV heparin * Supplement potassium Continue telemetry? No
[2016-12-31 20:17] LABS: PTT 67 SEC (25-37)
[2017-01-01 00:51] VITALS: BP 120/54
--- NOTE | 2017-01-01 07:44 | PN- Housestaff ---
JUDY HUNT,DAKOTAH 01/01/17 0743: Subjective Follow-up For: Acute on CKD holding dialysis Generalized weakness A fib on coumadin with IV heparin bridge Complaints: no complaints Subjective: Pt denies any pain or discomfort. She has generalized weakness working with PT. Will get OT for impaired ADLS. She lives alone. Review of Systems Constitutional: Denies: chills, fever, weakness. EENTM: Reports: no symptoms. Cardiovascular: Denies: chest pain, palpitations. Respiratory: Denies: cough, short of breath, sputum production. Gastrointestinal: Reports: constipation. Denies: abdominal pain, diarrhea, melena, nausea, vomiting. Genitourinary: Reports: no symptoms. Musculoskeletal: Reports: no symptoms. Skin: Reports: no symptoms. Neurological/Psychological: Reports: no symptoms. Hematologic/Endocrine: Reports: no symptoms. Immunologic/Allergic: Reports: no symptoms. Objective Last 24 Hrs of Vital Signs/I&O Vital Signs Date Time Temp Pulse Resp B/P Pulse O2 O2 Flow FiO2 Ox Delivery Rate 01/01 0832 83 110/63 01/01 0752 98.2 83 20 110/63 95 Room Air 01/01 0051 97.2 90 20 120/54 96 12/31 1629 97.8 96 20 128/52 97 Room Air 12/31 1500 Room Air Intake & Output 01/01 1600 01/01 0800 01/01 0000 Intake Total 421.6 250 Output Total Balance 421.6 250 Intake, IV 181.6 Intake, Oral 240 250 Physical Exam General Appearance: Alert, Oriented X3, Cooperative, No Acute Distress Skin: No Rashes, No Breakdown, No Significant Lesion HEENT: Atraumatic, PERRLA, EOMI, Mucous Membr. moist/pink Neck: Supple, No JVD, No LAD Lymphatic: Cervical nl Cardiovascular: Regular Rate, Normal S1, Normal S2, No Murmurs Lungs: Clear to Auscultation, Normal Air Movement Abdomen: Normal Bowel Sounds, Soft, No Tenderness Neurological: Normal Speech, Strength at 5/5 X4 Ext, Normal Tone, Sensation Intact, Cranial Nerves 3-12 NL Extremities: No Edema, Normal Pulses, No Tenderness/Swelling Vascular: Normal Pulses, Pulses Symmetrical Current Medications: Current Medications Sig/Madisyn Start time Last Medication Dose Route Stop Time Status Admin Acetaminophen 650 MG Q6P PRN 12/28 1145 AC PO Acetaminophen 1,000 MG Q6P PRN 12/28 1145 AC IV Calcitriol 0.25 MCG 12/31 1000 AC 12/31 PO 0920 Carvedilol 12.5 MG BID 12/28 1035 AC 01/01 PO 0832 Dextrose/Sodium 1,000 ML Q13H 12/31 1115 DC Chloride IV Diclofenac Sodium 1 ELOISE 4 TIMES/DAY 12/29 1421 AC 01/01 TOP 0834 Heparin Sodium 5,000 UNIT .STK-MED ONE 12/31 1305 DC (Porcine) IV 12/31 1306 Heparin Sodium 4,725 UNIT ONCE ONE 12/31 1300 DC 12/31 (Porcine) IV 12/31 1301 1321 Heparin Sodium 25,000 UNIT Q24H 12/28 1345 AC 12/31 (Porcine) IV 1321 Sodium Chloride 500 ML Insulin Aspart 0 TIDAC 12/31 1200 AC 01/01 SC 0832 Insulin Aspart 0 TIDAC 12/28 1700 DC 12/31 SC 0805 Insulin Human Regular 0 Q6 12/31 1200 CAN SC Morphine Sulfate 1 MG Q6-PRN PRN 12/28 1145 AC IV Patient Medication 1 ED .STK-MED ONE 12/31 1330 DC Teaching ED 12/31 1331 Torsemide 100 MG DAILY 01/01 1000 AC 01/01 PO 0843 Warfarin Sodium 7.5 MG COUMADIN 1700 ONE 12/31 1700 DC 12/31 PO 12/31 1701 1746 Last 24 Hrs of Lab/Zachary Results Last 24 Hrs of Labs/Mics: Laboratory Tests 01/01/17 0900: APTT Pending 01/01/17 0634: Anion Gap 13, Estimated GFR 14 L, BUN/Creatinine Ratio 27.2 H, PT 14.1 H, INR 1.35 H, CBC w Diff NO MAN DIFF REQ, RBC 3.41 L, MCV 87.4, MCH 29.6, RDW 14.3, MPV 10.5 H, Gran % 72.9, Lymphocytes % 18.6 L, Monocytes % 7.1, Eosinophils % 1.1, Basophils % 0.3, Absolute Granulocytes 7.2 H, Absolute Lymphocytes 1.8, Absolute Monocytes 0.7 H, Absolute Eosinophils 0.1, Absolute Basophils 0, PUBS MCHC 33.9 12/31/16 1942: APTT 67 H 12/31/16 1108: APTT 40 H 12/31/16 1100: APTT Cancelled Lines/Diet/Fluids Lines: peripheral lines Assessment/Plan Assessment: 86-year-old lady with a PMH of A. katarina on Coumadin, diastolic CHF, DM, ESRD awaiting hemodialysis who presented with URI symptoms. Problem list: 1. ESRD 2. A. fib currently off Coumadin 3. DM 4. Hypokalemia Plan: 1. ESRD * No need for urgent dialysis now per nephrology, resume po torsemide 100mg daily . * Hold metolazone, resume torsemide 100mg daily from tmr following BEP. No evidence of congestive heart failure * Hepatitis panel negative 2. A. fib s/p PM on coumadin * INR 1.35 after po coumadin 7.5mg yesterday. * Continue coumadin from today bridging with heparin * Rate control with coreg 12.5mg bid 3. DM * Consistent carbohydrate 3 diet. * Bedtime BS 282, 6am 234, will increase novolog s/s to medium with HS cover. 4. Hypokalemia * resolved, now 4.0 5. HFpEF/Rt. heart failure: Last echo 11/08/15 - EF 60-65%, mild dilatation of the right ventricular chamber is present with mild to moderate tricuspid insufficiency, mild to moderate right atrial dilatation and pulmonary hypertension with an estimated RV systolic pressure of 54 mmHg. Continue torsemide 100mg daily with BEP monitor. DVT ppx: IV Heparin, po coumadin DNR/DNI STR placement when INR becomes therapeutic Problem List: 1. Acute kidney injury superimposed on chronic kidney disease 2. Afib 3. CHF (congestive heart failure) Pain Ratin Pain Location: NA Pain Goal: Pain 4 or less Pain Plan: po tyrenol Tomorrow's Labs & Rationales: BEP - KELSIE INR - po coumadin DVT/Prophylaxis: pharmacological Consulting Request: Consulting Specialty: Nephrology Consulting Physician: Dr. Chua Reason for Consult: KELSIE on CKD Discharge Plan Stable for Discharge? No NELIA BRIDGES MD 01/01/17 1738: Attending Review Statement Attending Statement Attending Statement: examined this patient, discuss w/resident/PA/MULTI LINE CLAIMS ADJUSTER, agreed w/resident/PA/MULTI LINE CLAIMS ADJUSTER, reviewed EMR data (avail), discussed with nursing, amended to note Attending Assessment/Plan: The patient was seen and discussed with house staff. Agree with the plan of care as outlined.
[2017-01-01 07:52] VITALS: BP 110/63
[2017-01-01 07:53] LABS: ABSOLUTE BASOPHIL COUNT 0 /CUMM (0.0-0.2); ABSOLUTE EOSINOPHIL COUNT 0.1 /CUMM (0.0-0.7); ABSOLUTE GRANULOCYTE CT 7.2 /CUMM (1.4-6.5); ABSOLUTE LYMPH COUNT 1.8 /CUMM (1.2-3.4); ABSOLUTE MONOCYTE COUNT 0.7 /CUMM (0.10-0.60); BASOPHIL % 0.3 % (0.0-2.0); EOSINOPHIL % 1.1 % (0-5); GRANULOCYTE % 72.9 % (42.2-75.2); HEMATOCRIT 29.8 % (37-47); MEAN CORPUSCULAR HGB 29.6 PG (27.0-31.0); MEAN CORPUSCULAR HGB CONC 33.9 G/DL (33.0-37.0); MEAN CORPUSCULAR VOLUME 87.4 FL (81.0-99.0); MEAN PLATELET VOLUME 10.5 FL (7.4-10.4); RBC DISTRIBUTION WIDTH 14.3 % (11.5-14.5); RED BLOOD CELL CT 3.41 /CUMM (4.20-5.40); WHITE BLOOD CELL COUNT 9.9 /CUMM (4.8-10.8)
[2017-01-01 08:47] LABS: PT 14.1 SEC (9.4-12.5)
[2017-01-01 08:52] LABS: PLATELET COUNT 96 /CUMM (130-400)
[2017-01-01 09:55] LABS: PTT 53 SEC (25-37)
--- NOTE | 2017-01-01 14:49 | PN- Nephrology ---
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 Back to baseline creatinine. No clear uremic symptoms to warrant urgent start for chronic HD. I spoke in detail to the patient's other daughter today regarding options for dialysis (also re: conservative care). She said that the family would need to discuss. She also said that they were upset that metolazone had been restarted by her [employer]rom[employer] and wanted to switch care. I told her that I can see her in our office in [place]. KELSIE - Appears to have been 2/2 overdiuresis. Dry crackles on lung exam may be from underlying interstitial lung disease. Can likely restart maintenance diuretics tomorrow. Would probably avoid metolazone in the future unless monitored very very carefully. Acidosis - Bicarb at goal. Anemia - Hg at goal. Suggestion: -No need for initiation of chronic dialysis during this admission -Pt can f/u with me as per request in [place] -Would preserve non-dominant arm from blood draws, IV's, BP checks -Cont torsemide 100mg daily Subjective Subjective: SCr down to 3.2 Pt without specific complaints Objective Vital Signs and I&Os Vital Signs Date Time Temp Pulse Resp B/P Pulse O2 O2 Flow FiO2 Ox Delivery Rate 01/01 0832 83 110/63 01/01 0752 98.2 83 20 110/63 95 Room Air 01/01 0051 97.2 90 20 120/54 96 12/31 1629 97.8 96 20 128/52 97 Room Air 12/31 1500 Room Air Intake & Output 01/01 1600 01/01 0400 12/31 1600 12/31 0400 12/30 1600 12/30 0400 Intake Total 421.6 250 893.00 400 1421.6 654 Output Total 300 Balance 421.6 250 893.00 400 1421.6 354 Intake, IV 181.6 293.00 381.6 54 Intake, Oral 240 250 077 363 9530 600 Number 1 Bowel Movements Output, Urine 300 Patient 139 lb Weight Physical Exam: Gen - OK appearing HEENT - JVP visible but not up CV - RRR Chest - b/l dry inspiratory crackles Abd - soft, nontender Ext - minimal edema Neuro - alert, conversive Current Medications: Current Medications Sig/Madisyn Start time Last Medication Dose Route Stop Time Status Admin Acetaminophen 650 MG Q6P PRN 12/28 1145 AC PO Acetaminophen 1,000 MG Q6P PRN 12/28 1145 AC IV Calcitriol 0.25 MCG 12/31 1000 AC 12/31 PO 0920 Carvedilol 12.5 MG BID 12/28 1035 AC 01/01 PO 0832 Diclofenac Sodium 1 ELOISE 4 TIMES/DAY 12/29 1421 AC 01/01 TOP 1245 Heparin Sodium 2,500 UNIT ONCE ONE 01/01 1030 DC 01/01 (Porcine) IV 01/01 1031 1059 Heparin Sodium 25,000 UNIT Q24H 12/28 1345 AC 01/01 (Porcine) IV 1100 Sodium Chloride 500 ML Insulin Aspart 0 TIDAC/HS 01/01 1200 AC 01/01 SC 1244 Insulin Aspart 0 TIDAC 12/31 1200 DC 01/01 SC 0832 Morphine Sulfate 1 MG Q6-PRN PRN 12/28 1145 DC IV Torsemide 100 MG DAILY 01/01 1000 AC 01/01 PO 0843 Warfarin Sodium 7.5 MG COUMADIN 1700 ONE 01/01 1700 AC PO 01/01 1701 Warfarin Sodium 7.5 MG COUMADIN 1700 ONE 12/31 1700 DC 12/31 PO 12/31 1701 1746 Results Pertinent Lab Results: Laboratory Tests 01/01 01/01 12/31 12/31 0900 0634 1942 1108 Chemistry Sodium (137 - 145 mmol/L) 137 Potassium (3.5 - 5.1 mmol/L) 4.0 Chloride (98 - 107 mmol/L) 102 Carbon Dioxide (22 - 30 mmol/L) 22 Anion Gap (5 - 16) 13 BUN (7 - 17 mg/dL) 87 H Creatinine (0.5 - 1.0 mg/dL) 3.2 H Estimated GFR (>60 ml/min) 14 L BUN/Creatinine Ratio (7 - 25 %) 27.2 H Coagulation PT (9.4 - 12.5 SEC) 14.1 H INR (0.90 - 1.19) 1.35 H APTT (25 - 37 SEC) 53 H 67 H 40 H Hematology CBC w Diff NO MAN DIFF REQ WBC (4.8 - 10.8 /CUMM) 9.9 RBC (4.20 - 5.40 /CUMM) 3.41 L Hgb (12.0 - 16.0 G/DL) 10.1 L Hct (37 - 47 %) 29.8 L MCV (81.0 - 99.0 FL) 87.4 MCH (27.0 - 31.0 PG) 29.6 RDW (11.5 - 14.5 %) 14.3 Plt Count (130 - 400 /CUMM) 96 L MPV (7.4 - 10.4 FL) 10.5 H Gran % (42.2 - 75.2 %) 72.9 Lymphocytes % (20.5 - 51.1 %) 18.6 L Monocytes % (1.7 - 9.3 %) 7.1 Eosinophils % (0 - 5 %) 1.1 Basophils % (0.0 - 2.0 %) 0.3 Absolute Granulocytes (1.4 - 6.5 /CUMM) 7.2 H Absolute Lymphocytes (1.2 - 3.4 /CUMM) 1.8 Absolute Monocytes (0.10 - 0.60 /CUMM) 0.7 H Absolute Eosinophils (0.0 - 0.7 /CUMM) 0.1 Absolute Basophils (0.0 - 0.2 /CUMM) 0 PUBS MCHC (33.0 - 37.0 G/DL) 33.9 12/31 12/31 12/31 1100 0645 0456 Chemistry Sodium (137 - 145 mmol/L) 139 Potassium (3.5 - 5.1 mmol/L) 3.8 Chloride (98 - 107 mmol/L) 101 Carbon Dioxide (22 - 30 mmol/L) 24 Anion Gap (5 - 16) 13 BUN (7 - 17 mg/dL) 92 H Creatinine (0.5 - 1.0 mg/dL) 3.4 H Estimated GFR (>60 ml/min) 13 L BUN/Creatinine Ratio (7 - 25 %) 27.1 H Coagulation PT (9.4 - 12.5 SEC) 16.1 H INR (0.90 - 1.19) 1.54 H APTT (25 - 37 SEC) Cancelled 114 *H Hematology CBC w Diff NO MAN DIFF REQ WBC (4.8 - 10.8 /CUMM) 11.2 H RBC (4.20 - 5.40 /CUMM) 3.55 L Hgb (12.0 - 16.0 G/DL) 10.4 L Hct (37 - 47 %) 30.7 L MCV (81.0 - 99.0 FL) 86.5 MCH (27.0 - 31.0 PG) 29.2 RDW (11.5 - 14.5 %) 14.6 H Plt Count (130 - 400 /CUMM) 103 L MPV (7.4 - 10.4 FL) 10.6 H Gran % (42.2 - 75.2 %) 78.1 H Lymphocytes % (20.5 - 51.1 %) 14.8 L Monocytes % (1.7 - 9.3 %) 6.5 Eosinophils % (0 - 5 %) 0.3 Basophils % (0.0 - 2.0 %) 0.3 Absolute Granulocytes (1.4 - 6.5 /CUMM) 8.7 H Absolute Lymphocytes (1.2 - 3.4 /CUMM) 1.7 Absolute Monocytes (0.10 - 0.60 /CUMM) 0.7 H Absolute Eosinophils (0.0 - 0.7 /CUMM) 0 Absolute Basophils (0.0 - 0.2 /CUMM) 0 PUBS MCHC (33.0 - 37.0 G/DL) 33.8 12/30 12/30 12/30 1720 0935 0220 Chemistry Sodium (137 - 145 mmol/L) 137 139 Potassium (3.5 - 5.1 mmol/L) 3.2 L 3.0 L Chloride (98 - 107 mmol/L) 95 L 100 Carbon Dioxide (22 - 30 mmol/L) 25 21 L Anion Gap (5 - 16) 17 H 17 H BUN (7 - 17 mg/dL) 104 *H 111 *H Creatinine (0.5 - 1.0 mg/dL) 3.6 H 3.9 H Estimated GFR (>60 ml/min) 12 L 11 L BUN/Creatinine Ratio (7 - 25 %) 28.9 H 28.5 H Magnesium (1.6 - 2.3 mg/dL) 1.6 Coagulation APTT (25 - 37 SEC) 91 H 58 H 50 H Hematology CBC w Diff NO MAN DIFF REQ WBC (4.8 - 10.8 /CUMM) 11.3 H RBC (4.20 - 5.40 /CUMM) 3.72 L Hgb (12.0 - 16.0 G/DL) 11.0 L Hct (37 - 47 %) 31.8 L MCV (81.0 - 99.0 FL) 85.6 MCH (27.0 - 31.0 PG) 29.5 RDW (11.5 - 14.5 %) 14.1 Plt Count (130 - 400 /CUMM) 112 L MPV (7.4 - 10.4 FL) 10.5 H Gran % (42.2 - 75.2 %) 76.4 H Lymphocytes % (20.5 - 51.1 %) 16.1 L Monocytes % (1.7 - 9.3 %) 6.9 Eosinophils % (0 - 5 %) 0.5 Basophils % (0.0 - 2.0 %) 0.1 Absolute Granulocytes (1.4 - 6.5 /CUMM) 8.7 H Absolute Lymphocytes (1.2 - 3.4 /CUMM) 1.8 Absolute Monocytes (0.10 - 0.60 /CUMM) 0.8 H Absolute Eosinophils (0.0 - 0.7 /CUMM) 0.1 Absolute Basophils (0.0 - 0.2 /CUMM) 0 PUBS MCHC (33.0 - 37.0 G/DL) 34.4 Serology Hepatitis A IgM Ab (NONREACTIVE) NONREACTIVE Hep Bs Antigen (NONREACTIVE) NONREACTIVE Hep B Core IgM Ab Conf (NONREACTIVE) NONREACTIVE Hepatitis C Antibody (NONREACTIVE) NONREACTIVE Imaging/Other Studies: XR PORTABLE CHEST CLINICAL INFORMATION: Shows of breath, nausea, cough, vomiting COMPARISON: 11/06/2015 TECHNIQUE: Portable AP view of the chest was obtained. FINDINGS: No significant interval change. No focal consolidation, pleural effusion or pneumothorax. Coarsened and reticulated interstitial lung markings, unchanged. Stable cardiomegaly. Anterior median sternotomy wires. TAVR. Mediastinal clips. Marked atherosclerosis thoracic aorta. Right chest pacer with lead projecting over the right ventricle. No acute osseous abnormality. Surgical clips project over the epigastrium. IMPRESSION: No significant interval change and no acute cardiopulmonary process. Stable cardiomegaly. Chronic coarsening of the interstitial lung markings suggestive of underlying interstitial lung disease.
[2017-01-01 16:02] VITALS: BP 104/62
[2017-01-01 17:41] LABS: PTT 53 SEC (25-37)
[2017-01-02 00:42] VITALS: BP 118/64
[2017-01-02 01:21] LABS: PTT 58 SEC (25-37)
[2017-01-02 07:53] VITALS: BP 122/70
[2017-01-02 08:05] LABS: ABSOLUTE BASOPHIL COUNT 0 /CUMM (0.0-0.2); ABSOLUTE EOSINOPHIL COUNT 0.2 /CUMM (0.0-0.7); ABSOLUTE GRANULOCYTE CT 6.3 /CUMM (1.4-6.5); ABSOLUTE MONOCYTE COUNT 0.7 /CUMM (0.10-0.60); BASOPHIL % 0.4 % (0.0-2.0); GRANULOCYTE % 68.2 % (42.2-75.2); HEMATOCRIT 28.9 % (37-47); MEAN CORPUSCULAR HGB 29.2 PG (27.0-31.0); MEAN CORPUSCULAR HGB CONC 33.7 G/DL (33.0-37.0); MEAN CORPUSCULAR VOLUME 86.6 FL (81.0-99.0); MEAN PLATELET VOLUME 10.3 FL (7.4-10.4); PLATELET COUNT 121 /CUMM (130-400); RBC DISTRIBUTION WIDTH 14.2 % (11.5-14.5); RED BLOOD CELL CT 3.34 /CUMM (4.20-5.40); WHITE BLOOD CELL COUNT 9.2 /CUMM (4.8-10.8)
[2017-01-02 08:26] LABS: PT 18.4 SEC (9.4-12.5)
--- NOTE | 2017-01-02 08:28 | PN- Housestaff ---
[facility] 01/02/17 0819: Subjective Follow-up For: Acute on CKD holding dialysis Generalized weakness A fib on coumadin with IV heparin bridge Complaints: no complaints Subjective: Pt denies any pain or discomfort. She has generalized weakness working with PT. Will get OT for impaired ADLS. She lives alone. Is planned to go to [facility]. Review of Systems Constitutional: Reports: no symptoms. EENTM: Reports: no symptoms. Cardiovascular: Reports: no symptoms. Respiratory: Reports: no symptoms. Gastrointestinal: Reports: no symptoms. Genitourinary: Reports: no symptoms. Musculoskeletal: Reports: no symptoms. Skin: Reports: no symptoms. Neurological/Psychological: Reports: no symptoms. Objective Last 24 Hrs of Vital Signs/I&O Vital Signs Date Time Temp Pulse Resp B/P Pulse O2 O2 Flow FiO2 Ox Delivery Rate 01/02 0753 97.6 78 20 122/70 95 Room Air 01/02 0042 98.0 82 18 118/64 96 Room Air 01/01 1602 98.1 85 20 104/62 98 Room Air 01/01 0832 83 110/63 Intake & Output 01/02 1600 01/02 0800 01/02 0000 Intake Total 474.1 830.8 Output Total Balance 474.1 830.8 Intake, IV 234.1 110.8 Intake, Oral 240 720 Physical Exam General Appearance: Alert, Oriented X3, Cooperative, No Acute Distress Skin: No Rashes, No Breakdown HEENT: Atraumatic, PERRLA, EOMI, Mucous Membr. moist/pink Neck: Supple, No JVD Lymphatic: Axillary nl Cardiovascular: No Murmurs, sternotomy scar in midline, irregularly irregular heart rate Lungs: Clear to Auscultation, Normal Air Movement Abdomen: Normal Bowel Sounds, Soft, No Tenderness Neurological: Normal Gait, Normal Speech, Strength at 5/5 X4 Ext, Normal Tone, trace pedal edema Extremities: No Clubbing, No Cyanosis, Normal Pulses, trace pedal edema Vascular: Normal Pulses Current Medications: Current Medications Sig/Madisyn Start time Last Medication Dose Route Stop Time Status Admin Acetaminophen 650 MG Q6P PRN 12/28 1145 AC PO Acetaminophen 1,000 MG Q6P PRN 12/28 1145 AC IV Calcitriol 0.25 MCG 12/31 1000 AC 12/31 PO 0920 Carvedilol 12.5 MG BID 12/28 1035 AC 01/01 PO 2142 Diclofenac Sodium 1 ELOISE 4 TIMES/DAY 12/29 1421 AC 01/01 TOP 2143 Heparin Sodium 2,520 UNIT ONCE ONE 01/02 0130 DC 01/02 (Porcine) IV 01/02 0131 0130 Heparin Sodium 2,500 UNIT ONCE ONE 01/01 1845 DC 01/01 (Porcine) IV 01/01 1846 1848 Heparin Sodium 5,000 UNIT .STK-MED ONE 01/01 1838 DC (Porcine) IV 01/01 1839 Heparin Sodium 5,000 UNIT .STK-MED ONE 01/01 1038 DC (Porcine) IV 01/01 1039 Heparin Sodium 2,500 UNIT ONCE ONE 01/01 1030 DC 01/01 (Porcine) IV 01/01 1031 1059 Heparin Sodium 25,000 UNIT Q24H 12/28 1345 AC 01/02 (Porcine) IV 0208 Sodium Chloride 500 ML Insulin Aspart 0 TIDAC/HS 01/01 1200 AC 01/01 SC 2142 Insulin Aspart 0 TIDAC 12/31 1200 DC 01/01 SC 0832 Morphine Sulfate 1 MG Q6-PRN PRN 12/28 1145 DC IV Torsemide 100 MG DAILY 01/01 1000 AC 01/01 PO 0843 Warfarin Sodium 7.5 MG COUMADIN 1700 ONE 01/01 1700 DC 01/01 PO 01/01 1701 1750 Last 24 Hrs of Lab/Zachary Results Last 24 Hrs of Labs/Mics: Laboratory Tests 01/02/17 0630: Sodium Pending, Potassium Pending, Chloride Pending, Carbon Dioxide Pending, Anion Gap Pending, BUN Pending, Creatinine Pending, BUN/Creatinine Ratio Pending , PT Pending, INR Pending, CBC w Diff NO MAN DIFF REQ, RBC 3.34 L, MCV 86.6, MCH 29.2, RDW 14.2, MPV 10.3, Gran % 68.2, Lymphocytes % 21.8, Monocytes % 7.6, Eosinophils % 2.0, Basophils % 0.4, Absolute Granulocytes 6.3, Absolute Lymphocytes 2.0, Absolute Monocytes 0.7 H, Absolute Eosinophils 0.2, Absolute Basophils 0, PUBS MCHC 33.7 01/02/17 0050: APTT 58 H 01/01/17 1646: APTT 53 H 01/01/17 0900: APTT 53 H Assessment/Plan Assessment: 86-year-old lady with a PMH of A. fib on Coumadin, diastolic CHF, DM, ESRD awaiting hemodialysis who presented with URI symptoms. Problem list: 1. ESRD 2. A. fib currently off Coumadin 3. DM 4. Hypokalemia Plan: 1. AK I on CKD * Likely secondary to overdiuresis. Cr same as yesterday ,3.2 * No need for urgent dialysis now per nephrology, resumed po torsemide 100mg daily . * Plan to follow up with nephrology as an outpatient in [place]. * Would preserve the nondominant arm for IVs * Holding metolazone, continuing torsemide 100mg daily * Hepatitis panel negative 2. A. fib s/p PM on coumadin * INR 1.76. Dosed 7.5 mg Coumadin today. * Continue coumadin bridging with heparin until INR therapeutic * Rate control with coreg 12.5mg bid 3. DM * Consistent carbohydrate 3 diet. * Bedtime BS to 217, 305 increase novolog s/s high scale with HS cover. 4. Hypokalemia * resolved, now 4.3 5. HFpEF/Rt. heart failure: Last echo 11/08/15 - EF 60-65%, mild dilatation of the right ventricular chamber is present with mild to moderate tricuspid insufficiency, mild to moderate right atrial dilatation and pulmonary hypertension with an estimated RV systolic pressure of 54 mmHg. Continue torsemide 100mg daily with BEP monitor. DVT ppx: IV Heparin, po coumadin DNR/DNI STR placement when INR becomes therapeutic Problem List: 1. Acute kidney injury superimposed on chronic kidney disease 2. Afib 3. CHF (congestive heart failure) Pain Ratin Pain Location: na Pain Goal: Remain pain free Pain Plan: po tyrenol Tomorrow's Labs & Rationales: BEP - KELSIE INR - po coumadin Consulting Request: Consulting Specialty: Nephrology Consulting Physician: Dr. Chua Reason for Consult: KELSIE on CKD NELIA BRIDGES MD 01/02/17 1536: Attending Review Statement Attending Statement Attending Statement: examined this patient, discuss w/resident/PA/CAMP GUARD, agreed w/resident/PA/CAMP GUARD, reviewed EMR data (avail), discussed with nursing, discussed with case mgmt, amended to note Attending Assessment/Plan: The patient was seen and discussed with house staff. Agree with the plan of care as outlined.
[2017-01-02 09:58] LABS: PTT 93 SEC (25-37)
--- NOTE | 2017-01-02 11:45 | Patient Discharge Instructions ---
Discharge Instructions General Discharge Information You were seen/treated for: KELSIE on CKD Special Instructions: 1. Please check BEP and INR on Saturday (01/07/17). 2. Please follow-up with your PCP within 1 week of discharge. Report INR/ BEP values to him. 2. Please follow-up with Dr. Betancourt(engraving supervisor) in [place] at 3.45 pm on the 01/24/17. Please report a copy of BEP results to him. Diet Continue normal diet: No Recommended Diet: Diabetic Activity Full Activity/No Limits: Yes ( TOLERATED) Acute Coronary Syndrome Inclusion Criteria At DC or during hospital stay patient has or had the following: ACS DIAGNOSIS No Discharge Core Measures Meds if any: Prescribed or Continued at Discharge Meds if any: NOT Prescribed or Continued at Discharge Congestive Heart Failure Inclusion Criteria At DC or during hospital stay patient has or had the following: CHF DIAGNOSIS No Discharge Core Measures Meds if any: Prescribed or Continued at Discharge Meds if any: NOT Prescribed or Continued at Discharge Cerebrovascular accident Inclusion Criteria At DC or during hospital stay patient has or had the following: CVA/TIA Diagnosis No Discharge Core Measures Meds if any: Prescribed or Continued at Discharge Meds if any: NOT Prescribed or Continued at Discharge Venous thromboembolism Inclusion Criteria VTE Diagnosis No VTE Type NONE VTE Confirmed by (Test) NONE Discharge Core Measures - Per Current guidelines, there needs to be overlap - treatment for the first 5 days of Warfarin therapy. - If discharged on Warfarin prior to 5 days of - overlap therapy, the patient will need to be - assessed for post discharge needs including - *Post discharge parental anticoagulation - *Warfarin and/or parental anticoagulation education - *Follow up date to check INR post discharge At least 5 days overlap therapy as Inpatient No Meds if any: Prescribed or Continued at Discharge Note: Overlap Therapy is Warfarin and Anticoagulant Meds if any: NOT Prescribed or Continued at Discharge
--- NOTE | 2017-01-02 13:41 | Discharge Summary ---
See Addendum Visit Information Visit Dates Admission Date: 12/28/16 Discharge Date: 01/03/2017 Hospital Course Course Attending Physician: NELIA BRIDGES MD Primary Care Physician: YEIMY CARTER MD Consulting Request: Consulting Specialty: Nephrology Consulting Physician: Dr. Chua Reason for Consult: KELSIE on CKD Hospital Course: 86-year-old lady with PMH of A. fib s/p PM on Coumadin, diastolic CHF (EF 60-65% ), CAD s/p CABG, s/p TAVR, DM type 2 presented to [facility] ED with a chief complaint of nasal congestion, rhinnorhea, pharyngitis. She had been seeing a Fishing Vessel Mate in [place], [place] and was recently begun on Metolazone. In the ED was noted to have an increase in Cr to 4.9 (was 3.6 in 05/2016) and elevated lactate level. Hospital Course: 1. 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 Nephorology consult was appreciated. Diuretics were held with trial of volume repletion. She was given gentle IV NS initially. Discussion of possible dialysis was made, and she was off coumadin pending final decision about dialysis. As her Cr improved after volume repletion, there was no need for urgent dialysis per nephrology. PO torsemide 100mg daily was resumed but metolozone was held. Patient needs to f/ u with industrial manufacturing technician Dr Garcias as an outpatient at [place]. BEP and INR should be checked on the 01/14/17 and reported to the PCP and industrial manufacturing technician. Continue holding Metalozone. 2. A. fib s/p PM on coumadin: She was on IV heparin pending decision of dialysis catheter placement. As she didn't require urgent dialysis, po coumadin was resumed on 12/31. She was bridged with IV Heparin till INR was therapeutic (2 -3). Coreg 12.5mg bid was continued for rate control. Continue 5 mg of Coumadin. INR check on Saturday01/14/17. 3. DM: She is on Consistent carbohydrate 3 diet. She was maintained on Novolog SS with TID accuchecks. 4. Hypokalemia: At admission, pt was hypokalemic. It resolved with repletion. 5. HFpEF/Rt. heart failure: Last echo 11/08/15 - EF 60-65%, mild dilatation of the right ventricular chamber is present with mild to moderate tricuspid insufficiency, mild to moderate right atrial dilatation and pulmonary hypertension with an estimated RV systolic pressure of 54 mmHg. Patient was not on acute exacerbation, stable. Continued on torsemide 100mg daily.Regular BEP monitoring, Metolazone was discontinued. DVT ppx: IV Heparin, po coumadin DNR/DNI STR placement when INR becomes therapeutic Allergies: Coded Allergies: Sulfa (Sulfonamide Antibiotics) (RASH 01/17/16) Disposition Summary Disposition Principal Diagnosis: AK I on CKD Additional Diagnosis: A. fib s/p PM on coumadin Discharge Disposition: SNF Discharge Instructions General Discharge Information Code Status: Do Not Resucitate/Intubat Patient's Diet: consistent carbohydrate 3 Patient's Activity: as tolerated Follow-Up Instructions/Appts: 1. Please follow-up with your PCP within 1 week of discharge. 2. Please follow-up with Dr. Betancourt(industrial manufacturing technician) in [place] within 1 week of discharge. Medications at Discharge Discharge Medications: Stop taking the following medications: Metolazone (Metolazone) 5 MG TABLET ORAL DAILY Continue taking these medications: Sitagliptin Phosphate (Januvia) 50 MG TABLET 1 Tablet ORAL DAILY Glimepiride (Amaryl) 2 MG TABLET 1 Tablet ORAL Every night Glimepiride (Amaryl) 2 MG TABLET 2 Tablet ORAL DAILY Carvedilol (Carvedilol) 12.5 MG TABLET 1 Tablet ORAL TWICE DAILY Torsemide (Torsemide) 100 MG TABLET 1 Tablet ORAL DAILY Calcitriol (Rocaltrol) 0.25 MCG CAPSULE 1 Capsule ORAL SATURDAY, SATURDAY AND SATURDAY Potassium Chloride (K-Tab ER) 20 MEQ TABLET.ER 1 Tablet ORAL DAILY Warfarin Sodium (Warfarin Sodium) 5 MG TABLET 1 Tablet ORAL 5 PM Qty = 30 Copies To: JOHN BETANCOURT MD; NELIA BRIDGES MD; EMMA HUNT,YEIMY Wills Attending MD Review Statement Documenting Attending: NELIA BRIDGES MD
[2017-01-02 14:30] VITALS: BP 111/59
[2017-01-02 18:21] LABS: PTT 94 SEC (25-37)
[2017-01-02 23:30] VITALS: BP 110/70
[2017-01-03 01:46] LABS: PTT 69 SEC (25-37)
[2017-01-03 07:15] VITALS: BP 140/70
[2017-01-03 07:55] LABS: ABSOLUTE BASOPHIL COUNT 0 /CUMM (0.0-0.2); ABSOLUTE EOSINOPHIL COUNT 0.2 /CUMM (0.0-0.7); ABSOLUTE GRANULOCYTE CT 5.1 /CUMM (1.4-6.5); ABSOLUTE LYMPH COUNT 1.7 /CUMM (1.2-3.4); ABSOLUTE MONOCYTE COUNT 0.6 /CUMM (0.10-0.60); BASOPHIL % 0.4 % (0.0-2.0); EOSINOPHIL % 2.3 % (0-5); GRANULOCYTE % 67.4 % (42.2-75.2); HEMATOCRIT 33.3 % (37-47); MEAN CORPUSCULAR HGB CONC 33.5 G/DL (33.0-37.0); MEAN CORPUSCULAR VOLUME 86.6 FL (81.0-99.0); MEAN PLATELET VOLUME 10.1 FL (7.4-10.4); PLATELET COUNT 145 /CUMM (130-400); RBC DISTRIBUTION WIDTH 13.9 % (11.5-14.5); RED BLOOD CELL CT 3.84 /CUMM (4.20-5.40); WHITE BLOOD CELL COUNT 7.6 /CUMM (4.8-10.8)
[2017-01-03 08:19] LABS: PT 29.6 SEC (9.4-12.5)
--- NOTE | 2017-01-03 09:08 | PN- Housestaff ---
[facility] 01/03/17 0849: Subjective Follow-up For: Acute on CKD holding dialysis Generalized weakness A fib on coumadin with IV heparin bridge Complaints: no complaints Subjective: Pt denies any pain or discomfort. She has generalized weakness working with PT. Is planned to go to [facility] today. Review of Systems Constitutional: Reports: malaise, weakness. EENTM: Reports: no symptoms. Cardiovascular: Reports: no symptoms. Respiratory: Reports: no symptoms. Gastrointestinal: Reports: no symptoms. Genitourinary: Reports: no symptoms. Musculoskeletal: Reports: no symptoms. Skin: Reports: no symptoms. Neurological/Psychological: Reports: no symptoms. Objective Last 24 Hrs of Vital Signs/I&O Vital Signs Date Time Temp Pulse Resp B/P Pulse O2 O2 Flow FiO2 Ox Delivery Rate 01/03 0715 98.2 77 18 140/70 98 Room Air 01/02 2330 97.3 80 20 110/70 98 Room Air 01/02 2158 60 150/82 01/02 1430 97.3 85 20 111/59 98 Room Air 01/02 0909 122/70 Intake & Output 01/03 1600 01/03 0800 01/03 0000 Intake Total 200.8 300 Output Total Balance 200.8 300 Intake, IV 200.8 Intake, Oral 300 Physical Exam General Appearance: Alert, Oriented X3, Cooperative, No Acute Distress Skin: No Rashes, No Breakdown, No Significant Lesion HEENT: Atraumatic, PERRLA, EOMI Neck: No JVD Lymphatic: Cervical nl Cardiovascular: Regular Rate, Normal S1, Normal S2, sternotomy scar in the medline Lungs: Clear to Auscultation, Normal Air Movement Abdomen: Normal Bowel Sounds, Soft, No Tenderness Neurological: Normal Gait, Normal Speech, Strength at 5/5 X4 Ext Extremities: No Clubbing, No Cyanosis, trace pedal edema Vascular: Pulses Symmetrical Current Medications: Current Medications Sig/Madisyn Start time Last Medication Dose Route Stop Time Status Admin Acetaminophen 650 MG .STK-MED ONE 01/02 1020 DC PO 01/02 1021 Acetaminophen 650 MG Q6P PRN 12/28 1145 AC 01/02 PO 1045 Acetaminophen 1,000 MG Q6P PRN 12/28 1145 AC IV Calcitriol 0.25 MCG 12/31 1000 AC 01/02 PO 0908 Carvedilol 12.5 MG BID 12/28 1035 AC 01/02 PO 2158 Diclofenac Sodium 1 ELOISE 4 TIMES/DAY 12/29 1421 01/02 TOP 2158 Heparin Sodium 25,000 UNIT Q24H 12/28 1345 01/03 (Porcine) IV 0228 Sodium Chloride 500 ML Insulin Aspart 0 TIDAC/HS 01/01 1200 AC 01/03 SC 0840 Patient Medication 1 ED .STK-MED ONE 01/02 1324 DC Teaching ED 01/02 1325 Torsemide 100 MG DAILY 01/01 1000 AC 01/02 PO 0908 Warfarin Sodium 7.5 MG COUMADIN 1700 ONE 01/02 1700 DC 01/02 PO 01/02 1701 1739 Last 24 Hrs of Lab/Zachary Results Last 24 Hrs of Labs/Mics: Laboratory Tests 01/03/17 0640: Anion Gap 15, Estimated GFR 14 L, BUN/Creatinine Ratio 32.6 H, PT 29.6 H, INR 2.85 H, CBC w Diff NO MAN DIFF REQ, RBC 3.84 L, MCV 86.6, MCH 29.0, RDW 13.9, MPV 10.1, Gran % 67.4, Lymphocytes % 22.5, Monocytes % 7.4, Eosinophils % 2.3, Basophils % 0.4, Absolute Granulocytes 5.1, Absolute Lymphocytes 1.7, Absolute Monocytes 0.6, Absolute Eosinophils 0.2, Absolute Basophils 0, PUBS MCHC 33.5 01/03/17 0125: APTT 69 H 01/02/17 1715: APTT 94 H Assessment/Plan Assessment: 86-year-old lady with a PMH of A. fib on Coumadin, diastolic CHF, DM, ESRD awaiting hemodialysis who presented with URI symptoms. Problem list: 1. ESRD 2. A. fib currently off Coumadin 3. DM 4. Hypokalemia Plan: 1. AK I on CKD * Likely secondary to overdiuresis. Cr same as yesterday ,3.1, BUN 101 * No need for urgent dialysis now per nephrology, resumed po torsemide 100mg daily . * Plan to follow up with nephrology as an outpatient in [place]. Repeat BEP on Saturday (01/07/17). * Holding metolazone, continuing torsemide 100mg daily 2. A. fib s/p PM on coumadin * INR therapeutic . Dose 5 mg Coumadin today. Heparin stopped * INR check on Saturday, continue with 5 mg coumadin * Rate control with coreg 12.5mg bid 3. DM * Consistent carbohydrate 3 diet. * Bedtime BS to 183, 183,223, continue novolog s/s high scale with HS cover. 4. Hypokalemia * Repleted 5. HFpEF/Rt. heart failure: Last echo 11/08/15 - EF 60-65%, mild dilatation of the right ventricular chamber is present with mild to moderate tricuspid insufficiency, mild to moderate right atrial dilatation and pulmonary hypertension with an estimated RV systolic pressure of 54 mmHg. Continue torsemide 100mg daily with BEP monitor. DVT ppx: po coumadin DNR/DNI STR placement Problem List: 1. Afib 2. Acute kidney injury superimposed on chronic kidney disease Pain Ratin Pain Location: na Pain Goal: Remain pain free Pain Plan: po tyrenol Tomorrow's Labs & Rationales: none as pt is getting discharged Consulting Request: Consulting Specialty: Nephrology Consulting Physician: Dr. Chua Reason for Consult: KELSIE on CKD NELIA BRIDGES MD 01/03/17 1500: Attending Review Statement Attending Statement Attending MD Statement: examined this patient, discuss w/resident/PA/CELL SUPPORT OPERATOR, agreed w/resident/PA/CELL SUPPORT OPERATOR, reviewed EMR data (avail), discussed with nursing, discussed with case mgmt, amended to note Attending Assessment/Plan: The patient was seen and discussed with house staff. Agree with plan of care. To go for rehab at [place].
[2017-01-03 09:24] VITALS: BP 140/70
[2017-01-03 10:12] VITALS: BP 120/70
--- NOTE | 2017-01-03 10:36 | PN- Nephrology ---
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 Back to baseline creatinine. No clear uremic symptoms to warrant urgent start for chronic HD. I had spoken to family in detail regarding options for dialysis (including opting against chronic dialysis). They will be discussing. The patient will be following up as an outpatient with me (the patient's family was very upset that metolazone was restarted by their Vulnerability Assessment Analyst and wanted to switch providers). KELSIE - Appears to have been 2/2 overdiuresis. Resolved. Elevated BUN - Given that the patient was volume overloaded to warrant addition of metolazone to her outpatient diuretic regimen, I would be hesitant to significantly decrease her loop diuretic at this time (understanding that her BUN has risen with re-initiation of torsemide at 100mg) - I think going down to 80mg daily would be reasonable for now. Acidosis - Bicarb at goal. Anemia - Hg at goal. Suggestion: -No need for initiation of chronic dialysis during this admission -Would lower torsemide to 80mg daily -Pt has f/u with me on 01/24 at 3:45pm in [address] -Preserve non-dominant arm from blood draws, IV's, BP checks -Daily weights while at [facility] Subjective Subjective: Pt without specific complaints SCr down to 3.1 with BUN 101 Objective Vital Signs and I&Os Vital Signs Date Time Temp Pulse Resp B/P Pulse O2 O2 Flow FiO2 Ox Delivery Rate 01/03 1012 66 120/70 01/03 0924 98.2 77 18 140/70 03/ 0715 98.2 77 18 140/70 98 Room Air 01/02 2330 97.3 80 20 110/70 98 Room Air 01/02 2158 60 150/82 / 1430 97.3 85 20 111/59 98 Room Air Intake & Output 01/03 1600 01/03 0400 01/02 1600 01/02 0400 01/01 1600 01/01 0400 Intake Total 200.8 300 1915.7 830.8 1423.2 250 Output Total Balance 200.8 300 1915.7 830.8 1423.2 250 Intake, IV 200.8 475.7 110.8 383.2 Intake, Oral 300 8772 154 4877 250 Number 2 1 Bowel Movements Patient 139 lb Weight Physical Exam: Gen - OK appearing HEENT - JVP visible but not up CV - RRR Chest - b/l dry inspiratory crackles Abd - soft, nontender Ext - minimal edema Neuro - alert, conversive Current Medications: Current Medications Sig/Madisyn Start time Last Medication Dose Route Stop Time Status Admin Acetaminophen 650 MG Q6P PRN 12/28 1145 AC 01/02 PO 1045 Acetaminophen 1,000 MG Q6P PRN 12/28 1145 AC IV Calcitriol 0.25 MCG 12/31 1000 AC 01/02 PO 0908 Carvedilol 12.5 MG BID 12/28 1035 AC 01/03 PO 1012 Diclofenac Sodium 1 ELOISE 4 TIMES/DAY 12/29 1421 AC 01/03 TOP 1012 Heparin Sodium 25,000 UNIT Q24H 12/28 1345 DC 01/03 (Porcine) IV 0228 Sodium Chloride 500 ML Insulin Aspart 0 TIDAC/HS 01/01 1200 AC 01/03 SC 0840 Patient Medication 1 ED .STK-MED ONE 01/02 1324 DC Teaching ED 01/02 1325 Potassium Chloride 40 MEQ ONCE ONE 01/03 0915 DC 01/03 PO 01/03 0916 1009 Torsemide 100 MG DAILY 01/01 1000 AC 01/03 PO 1010 Warfarin Sodium 5 MG ONCE ONE 01/03 0915 DC 01/03 PO 01/03 0916 1009 Warfarin Sodium 7.5 MG COUMADIN 1700 ONE 01/02 1700 DC 01/02 PO 01/02 1701 1739 Results Pertinent Lab Results: Laboratory Tests 01/03 01/03 01/02 01/02 0640 0125 1715 0848 Chemistry Sodium (137 - 145 mmol/L) 139 Potassium (3.5 - 5.1 mmol/L) 3.6 Chloride (98 - 107 mmol/L) 99 Carbon Dioxide (22 - 30 mmol/L) 25 Anion Gap (5 - 16) 15 BUN (7 - 17 mg/dL) 101 *H Creatinine (0.5 - 1.0 mg/dL) 3.1 H Estimated GFR (>60 ml/min) 14 L BUN/Creatinine Ratio (7 - 25 %) 32.6 H Coagulation PT (9.4 - 12.5 SEC) 29.6 H INR (0.90 - 1.19) 2.85 H APTT (25 - 37 SEC) 69 H 94 H 93 H Hematology CBC w Diff NO MAN DIFF REQ WBC (4.8 - 10.8 /CUMM) 7.6 RBC (4.20 - 5.40 /CUMM) 3.84 L Hgb (12.0 - 16.0 G/DL) 11.1 L Hct (37 - 47 %) 33.3 L MCV (81.0 - 99.0 FL) 86.6 MCH (27.0 - 31.0 PG) 29.0 RDW (11.5 - 14.5 %) 13.9 Plt Count (130 - 400 /CUMM) 145 MPV (7.4 - 10.4 FL) 10.1 Gran % (42.2 - 75.2 %) 67.4 Lymphocytes % (20.5 - 51.1 %) 22.5 Monocytes % (1.7 - 9.3 %) 7.4 Eosinophils % (0 - 5 %) 2.3 Basophils % (0.0 - 2.0 %) 0.4 Absolute Granulocytes (1.4 - 6.5 /CUMM) 5.1 Absolute Lymphocytes (1.2 - 3.4 /CUMM) 1.7 Absolute Monocytes (0.10 - 0.60 /CUMM) 0.6 Absolute Eosinophils (0.0 - 0.7 /CUMM) 0.2 Absolute Basophils (0.0 - 0.2 /CUMM) 0 PUBS MCHC (33.0 - 37.0 G/DL) 33.5 01/02 01/02 01/01 01/01 0630 0050 1646 0900 Chemistry Sodium (137 - 145 mmol/L) 137 Potassium (3.5 - 5.1 mmol/L) 4.3 Chloride (98 - 107 mmol/L) 99 Carbon Dioxide (22 - 30 mmol/L) 23 Anion Gap (5 - 16) 15 BUN (7 - 17 mg/dL) 94 H Creatinine (0.5 - 1.0 mg/dL) 3.2 H Estimated GFR (>60 ml/min) 14 L BUN/Creatinine Ratio (7 - 25 %) 29.4 H Coagulation PT (9.4 - 12.5 SEC) 18.4 H INR (0.90 - 1.19) 1.76 H APTT (25 - 37 SEC) 58 H 53 H 53 H Hematology CBC w Diff NO MAN DIFF REQ WBC (4.8 - 10.8 /CUMM) 9.2 RBC (4.20 - 5.40 /CUMM) 3.34 L Hgb (12.0 - 16.0 G/DL) 9.7 L Hct (37 - 47 %) 28.9 L MCV (81.0 - 99.0 FL) 86.6 MCH (27.0 - 31.0 PG) 29.2 RDW (11.5 - 14.5 %) 14.2 Plt Count (130 - 400 /CUMM) 121 L MPV (7.4 - 10.4 FL) 10.3 Gran % (42.2 - 75.2 %) 68.2 Lymphocytes % (20.5 - 51.1 %) 21.8 Monocytes % (1.7 - 9.3 %) 7.6 Eosinophils % (0 - 5 %) 2.0 Basophils % (0.0 - 2.0 %) 0.4 Absolute Granulocytes (1.4 - 6.5 /CUMM) 6.3 Absolute Lymphocytes (1.2 - 3.4 /CUMM) 2.0 Absolute Monocytes (0.10 - 0.60 /CUMM) 0.7 H Absolute Eosinophils (0.0 - 0.7 /CUMM) 0.2 Absolute Basophils (0.0 - 0.2 /CUMM) 0 PUBS MCHC (33.0 - 37.0 G/DL) 33.7 01/01 12/31 12/31 0634 1942 1108 Chemistry Sodium (137 - 145 mmol/L) 137 Potassium (3.5 - 5.1 mmol/L) 4.0 Chloride (98 - 107 mmol/L) 102 Carbon Dioxide (22 - 30 mmol/L) 22 Anion Gap (5 - 16) 13 BUN (7 - 17 mg/dL) 87 H Creatinine (0.5 - 1.0 mg/dL) 3.2 H Estimated GFR (>60 ml/min) 14 L BUN/Creatinine Ratio (7 - 25 %) 27.2 H Coagulation PT (9.4 - 12.5 SEC) 14.1 H INR (0.90 - 1.19) 1.35 H APTT (25 - 37 SEC) 67 H 40 H Hematology CBC w Diff NO MAN DIFF REQ WBC (4.8 - 10.8 /CUMM) 9.9 RBC (4.20 - 5.40 /CUMM) 3.41 L Hgb (12.0 - 16.0 G/DL) 10.1 L Hct (37 - 47 %) 29.8 L MCV (81.0 - 99.0 FL) 87.4 MCH (27.0 - 31.0 PG) 29.6 RDW (11.5 - 14.5 %) 14.3 Plt Count (130 - 400 /CUMM) 96 L MPV (7.4 - 10.4 FL) 10.5 H Gran % (42.2 - 75.2 %) 72.9 Lymphocytes % (20.5 - 51.1 %) 18.6 L Monocytes % (1.7 - 9.3 %) 7.1 Eosinophils % (0 - 5 %) 1.1 Basophils % (0.0 - 2.0 %) 0.3 Absolute Granulocytes (1.4 - 6.5 /CUMM) 7.2 H Absolute Lymphocytes (1.2 - 3.4 /CUMM) 1.8 Absolute Monocytes (0.10 - 0.60 /CUMM) 0.7 H Absolute Eosinophils (0.0 - 0.7 /CUMM) 0.1 Absolute Basophils (0.0 - 0.2 /CUMM) 0 PUBS MCHC (33.0 - 37.0 G/DL) 33.9 12/31 1100 Coagulation APTT Cancelled Imaging/Other Studies: EXAM TYPE: US - US-RENAL/KIDNEY EXAMINATION: US RETROPERITONEAL COMPLETE (RENAL) CLINICAL INFORMATION: Worsening renal function. Acute kidney injury.. COMPARISON: 11/07/2015 TECHNIQUE: Real-time imaging of the kidneys and bladder. FINDINGS: RIGHT KIDNEY: 10 55.2 x 5.8 cm (SAG x AP x TRV). The kidney is normal in size and contour with increased echogenicity. Renal cortical thickness is normal. There is an upper pole 0.9 cm simple cyst. No calculi or solid parenchymal lesions. No hydronephrosis. LEFT KIDNEY: 10 x 5.2 x 5.8 cm (SAG x AP x TRV). The kidney is normal in size and contour with increased echogenicity. Renal cortical thickness is normal. No calculi or focal parenchymal lesions. No hydronephrosis. BLADDER: Well-distended and normal. Right ureteral jet is demonstrated; left is not. Prevoid bladder volume is 382 mL. IMPRESSION: Increased renal cortical echogenicity suggestive of medical renal disease. No hydronephrosis. No significant change from previous..
[2017-01-03] MEDS ORDERED: TORSEMIDE20 M1 PO (10:40)
== END 2017-01-03 11:45 | DRG 683 ==
LOC: ENRESERVDT → ENRESERVTM → ERH 06:52 → ENPENDDIS 09:19 → 2NB 09:19 → ERHI 09:19 → 2NB 15:44
PROVIDERS: Internal Medicine; Internal Medicine Interventional Cardiology; Ophthalmology; Preventive Medicine Public Health & General Preventive Medicine; Student in an Organized Health Care Education/Training Program; ADMIT Internal Medicine
DX: N17.9 Acute kidney failure, unspecified (principal); I12.0 Hypertensive chronic kidney disease with stage 5 chronic kidney disease or end stage renal disease; J84.9 Interstitial pulmonary disease, unspecified; E87.2 Acidosis; I50.32 Chronic diastolic (congestive) heart failure; I48.91 Unspecified atrial fibrillation; E11.22 Type 2 diabetes mellitus with diabetic chronic kidney disease; N18.5 Chronic kidney disease, stage 5; Z79.4 Long term (current) use of insulin; T50.995A Adverse effect of other drugs, medicaments and biological substances, initial encounter; Z79.01 Long term (current) use of anticoagulants; E87.6 Hypokalemia; Z66 Do not resuscitate; Z95.1 Presence of aortocoronary bypass graft; Z95.2 Presence of prosthetic heart valve; M10.9 Gout, unspecified
CPT/HCPCS: 2NBSP; 36415; 76775; 81001; 82436; 87804; 87804-59; 93005; 93010; 97001-GP; 97110-GO; 97112-GO; 97116-GO; 97166-GO; 97530-GO; J0131; J1644; J7040; J7042

== ENCOUNTER 2018-04-03 11:53 | Inpatient (IN) | payer OTHER ==
[~2018-04-03] VITALS: Ht 149.9 cm; Wt 65.8 kg
[~2018-04-03 11:53] MED LIST changes: +METOLAZONE5 M1 PO; +TORSEMIDE20 M1 PO; +WARFARIN SODIUM5 M1 PO
--- NOTE | 2018-04-03 12:19 | ED DYSPNEA/ASTHMA COMPLAINT ---
See Addendum History of Present Illness General Chief Complaint: General Adult Stated Complaint: DIFF BREATHING; HX OF CHF Source: patient, old records Exam Limitations: no limitations Vital Signs & Intake/Output Vital Signs & Intake/Output Vital Signs Date Time Temp Pulse Resp B/P B/P Pulse O2 O2 Flow FiO2 Mean Ox Delivery Rate 04/03 1448 98.7 75 18 129/60 97 Nasal 2.0L Cannula 04/03 1311 98 Nasal 2.0L Cannula 04/03 1218 94 Nasal 2.0L Cannula 04/03 1157 97.3 107 20 116/67 91 Room Air Allergies Coded Allergies: Sulfa (Sulfonamide Antibiotics) (RASH 01/17/16) Reconcile Medications Calcitriol (Rocaltrol) 0.25 MCG CAPSULE 1 CAP PO Saturday SUPPLEMENT (Reported) Carvedilol 12.5 MG TABLET 1 TAB PO BID BP (Reported) Cholecalciferol (Vitamin D3) (Vitamin D3) 2,000 UNIT TABLET 1 TAB PO DAILY VITAMIN SUPPORT (Reported) Febuxostat (Uloric) 40 MG TABLET 1 TAB PO DAILY UNKNOWN (Reported) Ferrous Sulfate 325 MG (65 MG IRON) TABLET 1 TAB PO 3XW IRON, VITAMIN ( Reported) Glimepiride (Amaryl) 2 MG TABLET 1 TAB PO QPM DM (Reported) Glimepiride (Amaryl) 2 MG TABLET 2 TAB PO DAILY DM (Reported) Potassium Chloride (K-Tab ER) 20 MEQ TABLET.ER 1 TAB PO BID SUPPLEMENT ( Reported) Sitagliptin Phosphate (Januvia) 50 MG TABLET 1 TAB PO DAILY DM (Reported) Sodium Bicarbonate 650 MG TABLET 1 TAB PO DAILY SUPPLEMENT (Reported) Torsemide 100 MG TABLET 1 TAB PO DAILY UNKNOWN (Reported) Warfarin Sodium 5 MG TABLET 1 TAB PO 1700 BLOOD THINNER (Reported) Triage Note: RECEIVED 87 YO FEMALE WITH HX OF CHF, C/O DIFFICULTY BREATHING X ONE WEEK WITH HEADACHE X 1 1/2 WEEKS. NO C/O CHEST PAIN. O2 SATS 91% PT REPORTS NON PRODUCTIVE COUGH. Triage Nurses Notes Reviewed? yes Onset: Gradual Duration: week(s): (1.5), changing over time, continues in ED, getting worse Timing: recent history Severity: moderate, severe Activities at Onset: activity Prior Episodes/Possible Cause: occasional episodes Modifying Factors: Worsens With: movement. Associated Symptoms: cough, SOB, HEADACHE SORE THROAT LMP (ages 10-50): post menopausal : No Patient currently breastfeeds: No HPI: 87-year-old female past medical history of hypertension, AFIB, hyperlipidemia, CHF, pacemaker, prosthetic valve, diabetes, chronic kidney disease, GLOMERULOnephritis presents for evaluation of worsening shortness of breath. Patient states that she usually will always had shortness of breath at baseline but over the past 1-2 weeks her shortness of breath has gotten worse. She reports that she has shortness of breath both at rest and during exertion however it is much worse on exertion. There is no chest pain dizziness or lightheadedness. She does report feeling weak and she has a dry cough. She's been using an albuterol inhaler without any improvement. She also reports that she has lower extremity edema has been present chronically as well. She denies hemoptysis recent surgery recent trauma. She is on Coumadin for the valve REPLACEMENT AND AFIB but has not had an INR checked recently. She takes to Rocephin I had 100 mg daily and has been taking it as directed. She is urinating normally. 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 No fever, abdominal pain, back pain or any other associated symptoms. (Roman Romero) Past History Travel History Traveled to [place] past 21 day No Medical History Any Pertinent Medical History? see below for history Neurological: NONE EENT: NONE Cardiovascular: CHF, hypertension, hyperlipidemia, PACEMAKER VALVE REPLACED Respiratory: NONE Gastrointestinal: NONE Hepatic: NONE Renal: glomerulonephritis Musculoskeletal: gout Psychiatric: NONE Endocrine: diabetes Blood Disorders: NONE Cancer(s): NONE PULP MIXER/Reproductive: NONE History of MRSA: No History of VRE: No History of CDIFF: No Influenza Vaccine: 07/31/16 Surgical History Surgical History: appendectomy, cholecystectomy, TIPLE BYPASS NEW VALVUE 3 YEARS AGO PACEMAKER 3 YRS AGO Psychosocial History Who do you live with Patient/Self Services at Home None What is your primary language Venezuelan Tobacco Use: Never used Family History Family History, If Any: BROTHER (DM). MOTHER (DM). FATHER (CAD). Hx Contributory? No (Roman Romero) Review of Systems Review of Systems Constitutional: Reports: weakness. EENTM: Reports: no symptoms. Respiratory: Reports: see HPI, cough, short of breath, wheezing. Cardiovascular: Reports: peripheral edema. GI: Reports: no symptoms. Genitourinary: Reports: no symptoms. Musculoskeletal: Reports: no symptoms. Skin: Reports: no symptoms. Neurological/Psychological: Reports: no symptoms. Hematologic/Endocrine: Reports: no symptoms. Immunologic/Allergic: Reports: no symptoms. All Other Systems: Reviewed and Negative (Roman Romero) Physical Exam Physical Exam General Appearance: well developed/nourished, no apparent distress, alert, awake Head: atraumatic, normal appearance Eyes: Bilateral: normal appearance, PERRL, EOMI. Ears, Nose, Throat: normal pharynx, normal ENT inspection, hearing grossly normal Neck: normal inspection, supple, full range of motion Respiratory: chest non-tender, no respiratory distress, decreased breath sounds, crackles, wheezing Cardiovascular: regular rate/rhythm, normal peripheral pulses Peripheral Pulses: 2+ radial (R), 2+ radial (L) Gastrointestinal: soft, non-tender Extremities: normal range of motion, there is bilateral lower extremity edema right worse than left Neurologic/Psych: no motor/sensory deficits, awake, alert, oriented x 3 Skin: intact, normal color, warm/dry Lymphatic: no anterior cervical rubens Core Measures ACS in differential dx? Yes CVA/TIA Diagnosis No Sepsis Present: No Sepsis Focused Exam Completed? No (Roman Romero) Progress Differential Diagnosis: asthma, AMI, bronchitis, CHF, COPD, pericarditis, pulmonary embolism, pneumonia, pneumothorax, unstable angina Plan of Care: Orders Procedure Date/time Status PROTHROMBIN TIME 04/04 06 Active CBC WITHOUT DIFFERENTIAL 04/04 06 Active BASIC ELECTROLYTES PLUS BUN&CR 04/04 06 Active Heart Healthy Diet 04/03 D Active ECHOCARDIOGRAM 04/03 1559 Active Code Status 04/03 1521 Active Pathway - chart 04/03 1507 Active House Staff 04/03 1507 Active Code Status 04/03 1507 Complete ED Holding Orders 04/03 1425 Active Admit to inpatient 04/03 1425 Active Patient Data 04/03 1425 Active Vital Signs 04/03 1425 Active Code Status 04/03 1425 Complete TOTAL TRIODOTHYROXINE 04/03 1300 Complete FREE T4 04/03 1300 Complete PARTIAL THROMBOPLASTIN TIME 04/03 1219 Complete PROTHROMBIN TIME 04/03 1219 Complete Intake & Output 04/03 1218 Active URINALYSIS 04/03 1217 Active TSH REFLEX 04/03 1217 Complete TROPONIN LEVEL 04/03 1217 Complete MAGNESIUM 04/03 1217 Complete COMPREHENSIVE METABOLIC PANEL 04/03 1217 Complete CBC WITHOUT DIFFERENTIAL 04/03 1217 Complete B-TYPE NATRIURETIC PEP (BNP) 04/03 1217 Complete EKG 04/03 1217 Active VTE Mechanical Prophylaxis 04/03 UNK Active FingerStick- Glucose 04/03 UNK Active Cano, Insertion/Removal/Asses 04/03 UNK Active Current Medications Sig/Madisyn Start time Last Medication Dose Stop Time Status Admin Calcitriol 0.25 MCG 04/04 0900 AC (Rocaltrol 0.25 Mcg Cap) Carvedilol 12.5 MG BID 04/03 2100 AC (Coreg) Insulin Aspart 0 TIDAC 04/03 1700 AC (NovoLOG) Furosemide 80 MG 7:30 AM, & 4:30 PM 04/03 1630 AC (Lasix) Laboratory Tests 04/03/18 1313: PT 23.3 H, INR 2.12 H, APTT 33 04/03/18 1300: Anion Gap 16, Estimated GFR 10 L, BUN/Creatinine Ratio 14.7, Glucose 215 H, Calcium 9.5, Magnesium 2.3, Total Bilirubin 0.7, AST 15, ALT 14, Alkaline Phosphatase 62, Troponin I 0.02, Bvv-Y-Dvwotxdrdfo Pept 5760 H, Total Protein 6.9, Albumin 3.5, Globulin 3.4, Albumin/Globulin Ratio 1.0 L, Free T4 1.72, Total T3 1.06, TSH &T3 &Free T4 Intrp 4.580 H, CBC w Diff NO MAN DIFF REQ, RBC 4.57, MCV 86.7, MCH 29.1, MCHC 33.5, RDW 15.1 H, MPV 8.9, Gran % 70.6, Lymphocytes % 20.3 L, Monocytes % 5.8, Eosinophils % 2.8, Basophils % 0.5, Absolute Granulocytes 4.7, Absolute Lymphocytes 1.3, Absolute Monocytes 0.4, Absolute Eosinophils 0.2, Absolute Basophils 0 Patient seen and evaluated. She is here with worsening shortness of breath cough and lower extremity edema. On exam she presented with an oxygen saturation of 91% and mild tachycardia. She has diffuse crackles bilaterally and mild expiratory wheezing. DuoNeb ordered. Patient was placed on 2 L nasal cannula and is maintaining oxygen saturation in the high 90s. No respiratory distress or cyanosis. Labs EKG chest x-ray ordered a bilateral lower EXTREMITY venous Doppler ordered. CHF exacerbation versus COPD exacerbation versus PE versus pneumonia versus acute coronary syndrome. Patient's EKG shows ATRIAL fibrillation that is rate controlled. She does have ST depressions in the chest and lateral leads that seems to be somewhat more prominent compared to previous. Blood work shows a severely elevated BNP of 5700. Chest x-ray shows pulmonary vascular congestion with increased interstitial markings likely related to CHF. Patient has no elevated white blood cell count. Loculated within normal limits. Her creatinine is 4.3 which is increased from previous surgery GFR is 10. IV Lasix ordered patient will require admission to the hospital for diuresis cardiology consult nephrology consult medication adjustment serial labs serial EKGs telemetry. Ultrasound is still pending. Suspect that patient's hypoxia is coming from a CHF exacerbation instead of PE. Case discussed with Dr. Lozano he agrees. Diagnostic Imaging: Viewed by Me: Radiology Read. Discussed w/RAD: Radiology Read. Radiology Impression: PATIENT: KEVIN ARECHIGA PRESENT AGE: 87 PATIENT ACCOUNT NO: [id number] : 31 LOCATION: [facility] ORDERING PHYSICIAN: Roman TRUJILLO SERVICE DATE: 04/03/18 EXAM TYPE: RAD - XRY- PORTABLE CHEST XRAY EXAMINATION: XR PORTABLE CHEST CLINICAL INFORMATION: Shortness of breath and hypoxia. Congestive heart failure or pneumonia. COMPARISON: Chest x-ray 12/31/2016. TECHNIQUE: Frontal 80 degrees semiupright portable view of the chest was obtained. FINDINGS: FINDINGS: The patient is moderately rotated toward the left. The lung morales are asymmetrically expanded, with smaller volume on the right. There are increased interstitial lung markings bilaterally, which are slightly more prominent compared to the prior study. The cardiac silhouette is enlarged, slightly increased compared to the prior study. There is blunting of the right CP angle. There are no areas of focal consolidation. The central pulmonary vasculature is mildly prominent. There is no overt interstitial edema. The study redemonstrates the sequelae of the median sternotomy and CABG. The TAVR is unchanged. There is a clip projected over the right upper chest, and there are surgical clips in the epigastrium, unchanged. The right chest wall pacemaker with single lead appears unchanged in position. IMPRESSION: 1. There is interval increase in the cardiomegaly and there is mild prominence of the central pulmonary vasculature with interval increase in the interstitial markings. The findings may be consistent with evolving congestive heart failure. DICTATED BY: Freddie Kimble MD DATE/TIME DICTATED:04/03/181339 MATHEMATICAL ENGINEER:VISHAL DATE/TIME TRANSCRIBED:04/03/181339 CONFIDENTIAL, DO NOT COPY WITHOUT APPROPRIATE AUTHORIZATION. Initial ED EKG: AFIB (RATE 83), multiple PVCs, right bundle branch block, borderline ST depression in the lateral leads T-wave inversions and ST depression iN CHEST LEADS worse in V4 V5 and V6 Rhythm Strip: atrial fibrillation, PVC (Roman Romero) Departure Departure Disposition: STILL A PATIENT Condition: Stable Clinical Impression Primary Impression: CHF exacerbation Qualifiers: Heart failure type: unspecified Qualified Code: I50.9 - Heart failure, unspecified Referrals: Joseph Trejo MD Departure Forms: Customer Survey General Discharge Information (Roman Romero) Admission Note Spoke With: Vipul Beltran MD Documentation of Exam: Documentation of any treatments & extenuating circumstances including Concerns Regarding Discharge (functional status, medication knowledge or non-compliance, living conditions, etc.) that warrant an admission rather than observation: [IV diuresis, will need to go slowly given her increased creatinine., Cardiology consultation, renal consultation] PA/[employer] HOME TEACHER Co-Sign Statement Statement: ED Attending supervision documentation- [X] I saw and evaluated the patient. I have also reviewed all the pertinent lab results and diagnostic results. I agree with the findings and the plan of care as documented in the PA's/[employer] HOME TEACHER's documentation. [X [] Additions or exceptions (if any) to the PAs/GR[employer] 1 [employer]RU 6 HOME TEACHER's note and plan are summarized below: [SEE ABOVE NOTE] (Blake HUNT,Romel Steele) Critical Care Note Critical Care Note Critical Care Time: 30-74 min (Roman Romero)
[2018-04-03 13:11] LABS: ABSOLUTE BASOPHIL COUNT 0 /CUMM (0.0-0.2); ABSOLUTE EOSINOPHIL COUNT 0.2 /CUMM (0.0-0.7); ABSOLUTE GRANULOCYTE CT 4.7 /CUMM (1.4-6.5); ABSOLUTE LYMPH COUNT 1.3 /CUMM (1.2-3.4); ABSOLUTE MONOCYTE COUNT 0.4 /CUMM (0.10-0.60); BASOPHIL % 0.5 % (0.0-2.0); EOSINOPHIL % 2.8 % (0-5); GRANULOCYTE % 70.6 % (42.2-75.2); HEMATOCRIT 39.6 % (37-47); MEAN CORPUSCULAR HGB 29.1 PG (27.0-31.0); MEAN CORPUSCULAR HGB CONC 33.5 G/DL (33.0-37.0); MEAN CORPUSCULAR VOLUME 86.7 FL (81.0-99.0); MEAN PLATELET VOLUME 8.9 FL (7.4-10.4); PLATELET COUNT 169 /CUMM (130-400); RBC DISTRIBUTION WIDTH 15.1 % (11.5-14.5); RED BLOOD CELL CT 4.57 /CUMM (4.20-5.40); WHITE BLOOD CELL COUNT 6.6 /CUMM (4.8-10.8)
[2018-04-03 13:34] LABS: PT 23.3 SEC (9.4-12.5); PTT 33 SEC (25-37)
--- NOTE | 2018-04-03 13:49 | RADIOLOGY REPORT ---
EXAMINATION: XR PORTABLE CHEST CLINICAL INFORMATION: Shortness of breath and hypoxia. Congestive heart failure or pneumonia. COMPARISON: Chest x-ray 12/31/2016. TECHNIQUE: Frontal 80 degrees semiupright portable view of the chest was obtained. FINDINGS: FINDINGS: The patient is moderately rotated toward the left. The lung morales are asymmetrically expanded, with smaller volume on the right. There are increased interstitial lung markings bilaterally, which are slightly more prominent compared to the prior study. The cardiac silhouette is enlarged, slightly increased compared to the prior study. There is blunting of the right CP angle. There are no areas of focal consolidation. The central pulmonary vasculature is mildly prominent. There is no overt interstitial edema. The study redemonstrates the sequelae of the median sternotomy and CABG. The TAVR is unchanged. There is a clip projected over the right upper chest, and there are surgical clips in the epigastrium, unchanged. The right chest wall pacemaker with single lead appears unchanged in position. IMPRESSION: 1. There is interval increase in the cardiomegaly and there is mild prominence of the central pulmonary vasculature with interval increase in the interstitial markings. The findings may be consistent with evolving congestive heart failure.
--- NOTE | 2018-04-03 14:30 | History & Physical ---
Jake HUNT,[facility] 04/03/18 1429: General Information and HPI MD Statement: I have seen and personally examined KEVIN ARECHIGA and documented this H&P. The patient is a 87 year old F who presented with a patient stated chief complaint of [shortness of breath]. Source of Information: patient Exam Limitations: poor historian History of Present Illness: 87-year-old female past medical history of hypertension, A.fib on Warfarin, hyperlipidemia, CHF, TAVR and chronic kidney disease presented to the ED with complains of shortness of breath along with a cough and headache for the past week. The patient states that for the past week or so she she has been getting short of breath with minimal exertion like walking from her bed to her kitchen. Her symptoms have worsened since yesterday and she felt short of breath even at rest. She has been using an inhaler which has provided her with some relief. She reports being generally compliant with her medications except for yesterday when she missed her dose of the water pill. She follows with a supercharger repair supervisor in [place] but is unable to recall the name. Denies ever having dialysis. Mentions seeing her wrist liner last month and was told everything is fine. Allergies/Medications Allergies: Coded Allergies: Sulfa (Sulfonamide Antibiotics) (RASH 01/17/16) Home Med list Calcitriol (Rocaltrol) 0.25 MCG CAPSULE 1 CAP PO Saturday SUPPLEMENT (Reported) Carvedilol 12.5 MG TABLET 1 TAB PO BID BP (Reported) Cholecalciferol (Vitamin D3) (Vitamin D3) 2,000 UNIT TABLET 1 TAB PO DAILY VITAMIN SUPPORT (Reported) Febuxostat (Uloric) 40 MG TABLET 1 TAB PO DAILY UNKNOWN (Reported) Ferrous Sulfate 325 MG (65 MG IRON) TABLET 1 TAB PO 3XW IRON, VITAMIN ( Reported) Glimepiride (Amaryl) 2 MG TABLET 1 TAB PO QPM DM (Reported) Glimepiride (Amaryl) 2 MG TABLET 2 TAB PO DAILY DM (Reported) Potassium Chloride (K-Tab ER) 20 MEQ TABLET.ER 1 TAB PO BID SUPPLEMENT ( Reported) Sitagliptin Phosphate (Januvia) 50 MG TABLET 1 TAB PO DAILY DM (Reported) Sodium Bicarbonate 650 MG TABLET 1 TAB PO DAILY SUPPLEMENT (Reported) Torsemide 100 MG TABLET 1 TAB PO DAILY UNKNOWN (Reported) Warfarin Sodium 5 MG TABLET 1 TAB PO 1700 BLOOD THINNER (Reported) Past History Travel History Traveled to [place] past 21 day No Medical History Neurological: NONE EENT: NONE Cardiovascular: CHF, hypertension, hyperlipidemia, PACEMAKER VALVE REPLACED Respiratory: NONE Gastrointestinal: NONE Hepatic: NONE Renal: glomerulonephritis Musculoskeletal: gout Psychiatric: NONE Endocrine: diabetes Blood Disorders: NONE Cancer(s): NONE IRON POURER/Reproductive: NONE History of MRSA: No History of VRE: No History of CDIFF: No Surgical History Surgical History: appendectomy, cholecystectomy, TIPLE BYPASS NEW VALVUE 3 YEARS AGO PACEMAKER 3 YRS AGO Past Family/Social History Family History Relations & Conditions if any BROTHER (DM). MOTHER (DM). FATHER (CAD). Psychosocial History Services at Home: None Living Will? no Functional Ability ADLs Independent: dressing, eating, toileting, bathing. Ambulation: cane IADLs Independent: housework, finances, food prep, telephone, medication admin. Needs Assist: transportation. Review of Systems Review of Systems Constitutional: Denies: chills, fever. EENTM: Reports: no symptoms. Cardiovascular: Reports: peripheral edema. Denies: chest pain. Respiratory: Reports: cough, short of breath. GI: Denies: abdominal pain, diarrhea. Genitourinary: Reports: no symptoms. Musculoskeletal: Reports: no symptoms. Skin: Reports: no symptoms. Neurological/Psychological: Reports: no symptoms. Hematologic/Endocrine: Reports: no symptoms. Exam & Diagnostic Data Last 24 Hrs of Vital Signs/I&O Vital Signs Date Time Temp Pulse Resp B/P B/P Pulse O2 O2 Flow FiO2 Mean Ox Delivery Rate 04/03 1448 98.7 75 18 129/60 97 Nasal 2.0L Cannula 04/03 1311 98 Nasal 2.0L Cannula 04/03 1218 94 Nasal 2.0L Cannula 04/03 1157 97.3 107 20 116/67 91 Room Air Intake & Output 04/03 1600 04/03 0800 04/03 0000 Intake Total 0 Output Total Balance 0 Intake, Oral 0 Patient 140 lb Weight Weight Estimated Measurement Method Physical Exam General Appearance Alert, Oriented X3, Cooperative, Mild Distress Skin No Rashes, No Breakdown Skin Temp/Moisture Exam: Warm/Dry Sepsis Skin Exam (color): Normal for Ethnicity HEENT Atraumatic Cardiovascular Normal S1, Normal S2, No Murmurs Lungs Normal Air Movement, bilateral inspiratory crackles from mid to lower lobes Abdomen Soft, No Tenderness Neurological Normal Speech Extremities b/l 2+ lower extremity edema up to knees Last 24 Hrs of Labs/Zachary: Laboratory Tests 04/03/18 1313: PT 23.3 H, INR 2.12 H, APTT 33 04/03/18 1300: Anion Gap 16, Estimated GFR 10 L, BUN/Creatinine Ratio 14.7, Glucose 215 H, Calcium 9.5, Magnesium 2.3, Total Bilirubin 0.7, AST 15, ALT 14, Alkaline Phosphatase 62, Troponin I 0.02, [id number]-G-Yqjkofmbhaz Pept 5760 H, Total Protein 6.9, Albumin 3.5, Globulin 3.4, Albumin/Globulin Ratio 1.0 L, Free T4 1.72, Total T3 1.06, TSH &T3 &Free T4 Intrp 4.580 H, CBC w Diff NO MAN DIFF REQ, RBC 4.57, MCV 86.7, MCH 29.1, MCHC 33.5, RDW 15.1 H, MPV 8.9, Gran % 70.6, Lymphocytes % 20.3 L, Monocytes % 5.8, Eosinophils % 2.8, Basophils % 0.5, Absolute Granulocytes 4.7, Absolute Lymphocytes 1.3, Absolute Monocytes 0.4, Absolute Eosinophils 0.2, Absolute Basophils 0 Assessment/Plan Assessment: 87-year-old female past medical history of hypertension, A.fib on Warfarin, hyperlipidemia, CHF, TAVR and chronic kidney disease presented to the ED with complains of shortness of breath for the past week. Assessment: 1. Fluid Overload 2. Decompensated CHF 3. Prolonged QTc of 494 4. Elevated ProBNP 5. History of CKD Stage V 6. History of A.fib Plan: * Admit patient to telemetry for monitoring of arrhythmias * Continue oxygen supplementation to maintain target oxygen sats > 92%. * Her dyspnea is likely secondary to fluid overload. * Diurese with IV Lasix 80mg BID * Place Cano with Strict I's&Os * Unclear if she has KELSIE on CKD. * Daily weights * Nephrology consult * Hold NaHCO3 in the setting of fluid overload. * She has elevated proBNP and she may have a componenet of CHF * Cardiology consult * Echocardiogram. Her last one was two years ago. * Hold Coumadin. Begin IV Heparin * Continue carvedilol. * Hold oral hypoglycemics * Insulin SS with Accucheks. * Diet: Heart healthy * DVT Prophylaxis: IV Heparin * Code: DNR/DNI As Ranked By This Provider Problem List: 1. Afib Core Measures/Misc (07/21) Acute Coronary Syndrome ACS Diagnosis: No Congestive Heart Failure Congestive Heart Failure Diagnosis No Cerebrovascular Accident CVA/TIA Diagnosis: No VTE (View Protocol) VTE Risk Factors Age>40 No Mechanical VTE Prophylaxis d/t N/A MechProphylax Ordered No VTE Pharm Prophylaxis d/t NA PharmProphylax ordered Sepsis (View protocol) Sepsis Present: No If YES complete Sepsis Event Note If YES complete Sepsis Event Note Filiberto HUNT,[place]ala 04/03/18 1604: Core Measures/Misc (07/21) Sepsis (View protocol) If YES complete Sepsis Event Note If YES complete Sepsis Event Note Attending MD Review Statement Attending Statement Attending MD Statement: examined this patient, discuss w/resident/PA/CUSTOMER RESOLUTION SPECIALIST, agreed w/resident/PA/CUSTOMER RESOLUTION SPECIALIST, reviewed EMR data (avail), discussed with nursing, discussed with case mgmt, reviewed images Attending Assessment/Plan: 87-year-old female multiple medical problems including diabetes, atrial fibrillation on Coumadin, chronic diastolic heart failure, CAD and pacemaker and chronic stage V CK D. Its unclear whether she follows with a supercharger repair supervisor. She seems to think she follows with someone in [place] even though she was specifically asked to follow with Dr. Betancourt one year ago. She is here with what appears to be KELSIE on CKD with florid volume overload as evidenced by crackles, a saturation of 89% on room air and some edema. I spoke to Joseph Alfaro MD was going to see her in consult. For now will treat her with Lasix 80 mg IV twice a day, will put a Cano catheter in her, keep strict I's and O's and weights and watch her BUN and creatinine closely. Her INR today is 2.12 but if she needs a procedure done for emergent dialysis right now I'm not going to give her any Coumadin and follow-up of the INR in a.m. We'll put her on fingersticks with regular insulin sliding scale for diabetes. The hypernatremia is worrisome and it could reflect the sodium bicarbonate but will need to follow that closely . We'll put her on subcutaneous heparin for DVT prophylaxis and get collateral information from the family. Rubens HUNT,[place] 04/03/18 1701: Core Measures/Misc (07/21) Sepsis (View protocol) If YES complete Sepsis Event Note If YES complete Sepsis Event Note Resident Review Statement Resident Statement: examined this patient, discussed with international account representative, agreed with international account representative Other Findings: 87 year old female with extensive Pmhx include but not limited to A.fib, CHF, CKD, bioprosthetic aortic valve, who presented with dyspnea that worsened from baseline. For the past week she has had progressive exertional dyspnea, however starting to feel shortness breath even at rest. She missed her torsemide dose yesterday, otherwise she claims to be compliant with her medication. Assessment The patient has extensive PMHx and presented with a CC of dyspnea. Her BNP was found 5700, CXR suggestive CHF, and she has lower extremity edema. She is definitely volume overloaded on physical exam given diffuse crackles on lung exam. She had CKD with creatinine of 4.3, last given printed creatinine was on 01/18 and was 3.2. It's not clear if this rise is a worsening of her baseline creatinine or KELSIE intop of CKD. Even though she has volume overload, she was found to have hypernatremia which most likely because of 650 sodium bicarbonate. IV Lasix was held with both the volume overload and will help excrete somewhat the sodium into the urine. We will consult wrist liner and supercharger repair supervisor. #CHF exacerbation most likely caused by CKD. We'll * Monitor on telemetry * Start Lasix IV 80 mg twice a day * Place a Cano catheter and strict Is/Os * Daily weights * Echocardiogram(last echo was 2015) * Cardiology and nephrology consult #CKD * Not clear if this worsening CKD or KELSIE in top of CKD * We'll follow renal function * We will DC sodium bicarbonate given hypernatremia * We will follow supercharger repair supervisor recommendations #Hypernatremia * Sodium was found to be 147, real Na may be even higher if corrected to mild hyperglycemia * We will DC sodium bicarbonate * We will repeat 4 hours after 80 mg IV Lasix * We will follow nephrology recommendations #NIDDM * DC all oral antihyperglycemic medication * Start insulin sliding scale * Fingerstick * Diabetic diet #A.Fib with controlled rate * Continue carvedilol * INR is in therapeutic range * We will hold warfarin until the need for dialysis gets ruled out. -Diabetic diet -DVT PPX with ALPS and SC heparin -DNR/I
[2018-04-03] MEDS ORDERED: VITAMIN D32000 UNI1 PO (14:35)
[2018-04-03] MEDS ORDERED: SODIUM BICARBO650 M1 PO (14:36)
[2018-04-03] MEDS ORDERED: FERROUS SULFAT325 M3 PO (14:36)
[2018-04-03] MEDS ORDERED: ULORIC40 M1 PO (14:37)
[2018-04-03] MEDS ORDERED: TORSEMIDE100 M1 PO (14:38)
--- NOTE | 2018-04-03 14:49 | ULTRASOUND REPORT ---
EXAMINATION: US TRIPLEX OF LOWER EXTREMITIES, BILATERAL CLINICAL INFORMATION: Bilateral lower extremity edema and swelling. COMPARISON: None TECHNIQUE: Color-flow triplex imaging with spectral analysis and compression Doppler were performed on the lower extremities. FINDINGS: Respiratory variation, normal compression and augmented flow are noted throughout the lower extremities. The visualized common femoral vein, superficial femoral vein, profunda femoral vein, popliteal vein and midcalf peroneal and posterior tibial venous segments show no evidence of deep venous thrombosis. There is no Gaming's cyst. IMPRESSION: No evidence of deep venous thrombosis involving the bilateral lower extremities.
--- NOTE | 2018-04-03 15:59 | PN- Student ---
Subjective Subjective: Source: patient Reliability: nominal HPI: Mrs. Garcia is an 87 YOF who presented to the ER due to worsening shortness of breath. For the past week she has been suffering from dyspnea on exertion, cough, and a headache. Yesterday the dyspnea worsened to the point where she was short of breath even at rest. She used her albuterol inhaler with some relief throughout this period. It was unclear, given her history, why she had a rescue inhaler. She also missed one dose of her "water pill" yesterday. She denies any fever/chills, chest pain, or orthopnea. PMH: HTN, HLD, CHF, CKD5, DM, Gout PSH: Appendectomy, Cholecystectomy, CABGx3, Pacemaker Home Meds: Calcitriol (Rocaltrol) 0.25 MCG CAPSULE 1 CAP PO Saturday SUPPLEMENT Carvedilol 12.5 MG TABLET 1 TAB PO BID BP Cholecalciferol (Vitamin D3) (Vitamin D3) 2,000 UNIT TABLET 1 TAB PO DAILY VITAMIN Febuxostat (Uloric) 40 MG TABLET 1 TAB PO DAILY UNKNOWN Ferrous Sulfate 325 MG (65 MG IRON) TABLET 1 TAB PO 3XW IRON, VITAMIN Glimepiride (Amaryl) 2 MG TABLET 1 TAB PO QPM DM Glimepiride (Amaryl) 2 MG TABLET 2 TAB PO DAILY DM Potassium Chloride (K-Tab ER) 20 MEQ TABLET.ER 1 TAB PO BID SUPPLEMENT Sitagliptin Phosphate (Januvia) 50 MG TABLET 1 TAB PO DAILY DM Sodium Bicarbonate 650 MG TABLET 1 TAB PO DAILY SUPPLEMENT Torsemide 100 MG TABLET 1 TAB PO DAILY UNKNOWN (Reported) Warfarin Sodium 5 MG TABLET 1 TAB PO 1700 BLOOD THINNER (Reported) ALERGIES: Sulfa FMH: none obtained SH: Lives alone, ambulates with cane Objective Objective: On physical exam, the patient is alert and oriented and speaking in full sentances. She is resting comfortably with the bed elevated at 15 degrees. Head is atraumatic; mucous membranes are dry. Heart has an irregular rythm with no MRG. Lungs have rhales bilaterally two thirds up from the bases and scattered wheezes. There is pitting edema in her legs bilaterally up to the knee. Vital Signs Date Time Temp Pulse Resp B/P B/P Pulse O2 O2 Flow FiO2 Mean Ox Delivery Rate 04/03 1615 98.2 70 20 144/74 98 Nasal 2.0L Cannula 04/03 1448 98.7 75 18 129/60 97 Nasal 2.0L Cannula 04/03 1311 98 Nasal 2.0L Cannula 04/03 1218 94 Nasal 2.0L Cannula 04/03 1157 97.3 107 20 116/67 91 Room Air Last 24 Hours I&Os 04/03 1600 04/03 0800 04/03 0000 Intake Total 0 Output Total Balance 0 Intake, Oral 0 Patient 140 lb Weight Weight Estimated Measurement Method Laboratory Tests 04/03/18 1624: Urine Color YEL, Urine Clarity CLEAR, Urine pH 6.0, Ur Specific [place] 1.015, Urine Protein TRACE H, Urine Ketones NEG, Urine Nitrite NEG, Urine Bilirubin NEG, Urine Urobilinogen 0.2, Ur Leukocyte Esterase SMALL H, Ur Microscopic SEDIMENT EXAMINED, Urine RBC 5-10 H, Ur Epithelial Cells FEW, Urine Bacteria MOD H, Urine Hemoglobin SMALL H, Urine Glucose NEG 04/03/18 1313: PT 23.3 H, INR 2.12 H, APTT 33 04/03/18 1300: Anion Gap 16, Estimated GFR 10 L, BUN/Creatinine Ratio 14.7, Glucose 215 H, Calcium 9.5, Magnesium 2.3, Total Bilirubin 0.7, AST 15, ALT 14, Alkaline Phosphatase 62, Troponin I 0.02, [id number]-V-Eqmswdunuwi Pept 5760 H, Total Protein 6.9, Albumin 3.5, Globulin 3.4, Albumin/Globulin Ratio 1.0 L, Free T4 1.72, Total T3 1.06, TSH &T3 &Free T4 Intrp 4.580 H, CBC w Diff NO MAN DIFF REQ, RBC 4.57, MCV 86.7, MCH 29.1, MCHC 33.5, RDW 15.1 H, MPV 8.9, Gran % 70.6, Lymphocytes % 20.3 L, Monocytes % 5.8, Eosinophils % 2.8, Basophils % 0.5, Absolute Granulocytes 4.7, Absolute Lymphocytes 1.3, Absolute Monocytes 0.4, Absolute Eosinophils 0.2, Absolute Basophils 0 Orders Procedure Date/time Status PROTHROMBIN TIME 04/04 600 Active CBC WITHOUT DIFFERENTIAL 04/04 600 Active BASIC ELECTROLYTES PLUS BUN&CR 04/04 600 Active Heart Healthy Diet 04/03 D Active ECHOCARDIOGRAM 04/03 1559 Active Code Status 04/03 1521 Active Pathway - chart 04/03 1507 Active House Staff 04/03 1507 Active Code Status 04/03 1507 Complete ED Holding Orders 04/03 1425 Active Admit to inpatient 04/03 1425 Active Patient Data 04/03 1425 Active Vital Signs 04/03 1425 Active Code Status 04/03 1425 Complete TOTAL TRIODOTHYROXINE 04/03 1300 Complete FREE T4 04/03 1300 Complete PARTIAL THROMBOPLASTIN TIME 04/03 1219 Complete PROTHROMBIN TIME 04/03 1219 Complete Intake & Output 04/03 1218 Active URINALYSIS 04/03 1217 Complete TSH REFLEX 04/03 1217 Complete TROPONIN LEVEL 04/03 1217 Complete MAGNESIUM 04/03 121 Complete COMPREHENSIVE METABOLIC PANEL 04/03 1217 Complete CBC WITHOUT DIFFERENTIAL 04/03 121 Complete B-TYPE NATRIURETIC PEP (BNP) 04/03 1217 Complete EKG 04/03 1217 Active US-RENAL/KIDNEY 04/03 UNK Active VTE Mechanical Prophylaxis 04/03 UNK Active FingerStick- Glucose 04/03 UNK Active Cano, Insertion/Removal/Asses 04/03 UNK Active Assessment/Plan Assessment: 76 YOF with a history of HTN, HLD, CHF, CKD5, DM, Gout, Appendectomy, Cholecystectomy, CABGx3, and Pacemaker placement presents with new onset dyspnea at rest. Ddx: Decompensated heart failure, Renal failure Plan: - Admit to telemetry - IV lasix titrated to good urine output - D/C bicarb - D/C Warfarin - Nephrology consult for consideration of dialysis - Cardiology consult
--- NOTE | 2018-04-03 16:04 | Admission Certification ---
Admission Certification Certification Statement - As attending physician, I certify that at the time of - admission, based on clinical presentation, severity of - symptoms, need for further diagnostic testing and - therapeutic interventions, and risk of adverse outcomes - without in-hospital treatment, in my clinical assessment, - this patient requires an acute hospital stay for a minimum - of two nights or longer. I have also considered psychsocial - factors such as support system, advanced age, financial - issues, cognitive issues, and failed out-patient treatments, - past re-admission history, safety of patient, and lack of - compliance as applicable. Specific rationale supporting this admission is: Severe volume overload with stage V CKD and KELSIE.
--- NOTE | 2018-04-03 16:44 | Cons- Cardiology ---
General Information and HPI Consulting Request Date of Consult: 04/03/18 Requested By: Vipul Beltran MD Reason for Consult: ACUTE ON CHRONIC HFPEF; ACUTE ON CHRONIC RENAL INSUFFICIENCY. Source of Information: patient, old records Exam Limitations: no limitations History of Present Illness: 87-year-old female past medical history of hypertension, A.fib on Warfarin, hyperlipidemia, CHF, TAVR and chronic kidney disease presented to the ED with complains of shortness of breath along with a cough and headache for the past week. The patient states that for the past week or so she she has been getting short of breath with minimal exertion like walking from her bed to her kitchen. Her symptoms have worsened since yesterday and she felt short of breath even at rest. She has been using an inhaler which has provided her with some relief. She reports being generally compliant with her medications except for yesterday when she missed her dose of the water pill. She follows with a equine manager in [place] but is unable to recall the name. Denies ever having dialysis. Mentions seeing her car carder last month and was told everything is fiine Allergies/Medications Allergies: Coded Allergies: Sulfa (Sulfonamide Antibiotics) (RASH 01/17/16) Home Med List: Bumetanide 2 MG TABLET 1 TAB PO BID diuresis . Bumetanide 1 MG TABLET 1 TAB PO BID diuresis . Calcitriol (Rocaltrol) 0.25 MCG CAPSULE 1 CAP PO SATURDAY WED SATURDAY SUPPLEMENT (Reported) Carvedilol 6.25 MG TABLET 1 TAB PO BID high blood pressure . Cholecalciferol (Vitamin D3) (Vitamin D3) 2,000 UNIT TABLET 1 TAB PO DAILY VITAMIN SUPPORT (Reported) Ferrous Sulfate 325 MG (65 MG IRON) TABLET 1 TAB PO 3XW IRON, VITAMIN ( Reported) Glimepiride (Amaryl) 2 MG TABLET 2 TAB PO QAM DM (Reported) Glimepiride (Amaryl) 2 MG TABLET 1 TAB PO QPM DM (Reported) Potassium Chloride (K-Tab ER) 20 MEQ TABLET.ER 1 TAB PO BID SUPPLEMENT ( Reported) Sitagliptin Phosphate (Januvia) 50 MG TABLET 1 TAB PO DAILY DM (Reported) Sodium Bicarbonate 650 MG TABLET 1 TAB PO DAILY SUPPLEMENT (Reported) Warfarin Sodium (Coumadin) 4 MG TABLET 1 TAB PO DAILY blood thinner Current Medications: Current Medications Sig/Madisyn Start time Last Medication Dose Route Stop Time Status Admin Albuterol Sulfate 3 ML ONCE ONE 04/03 1300 DC 04/03 INH 04/03 1301 1310 Calcitriol 0.25 MCG 04/04 0900 AC PO Carvedilol 12.5 MG BID 04/03 2100 AC PO Furosemide 80 MG 7:30 AM, & 4:30 PM 04/03 1630 AC 04/03 IV 1615 Furosemide 0 .STK-MED ONE 04/03 1604 DC IV Furosemide 0 .STK-MED ONE 04/03 1503 DC IV Furosemide 40 MG ONCE ONE 04/03 1430 DC 04/03 IV 04/03 1431 1459 Insulin Aspart 0 TIDAC 04/03 1700 AC SC Ipratropium Agate 2.5 ML ONCE ONE 04/03 1300 DC 04/03 INH 04/03 1301 1310 Past History Travel History Traveled to [place] past 21 day No Medical History Neurological: NONE EENT: NONE Cardiovascular: CHF, hypertension, hyperlipidemia, PACEMAKER VALVE REPLACED Respiratory: NONE Gastrointestinal: NONE Hepatic: NONE Renal: glomerulonephritis Musculoskeletal: gout Psychiatric: NONE Endocrine: diabetes Blood Disorders: NONE Cancer(s): NONE 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 MOTHER (DM). FATHER (CAD). Psychosocial History Services at Home: None Living Will? no Functional Ability ADLs Independent: dressing, eating, toileting, bathing. Ambulation: cane IADLs Independent: housework, finances, food prep, telephone, medication admin. Needs Assist: transportation. Exam & Diagnostic Data Vital Signs and I&O Vital Signs Date Time Temp Pulse Resp B/P B/P Pulse O2 O2 Flow FiO2 Mean Ox Delivery Rate 04/03 1448 98.7 75 18 129/60 97 Nasal 2.0L Cannula 04/03 1311 98 Nasal 2.0L Cannula 04/03 1218 94 Nasal 2.0L Cannula 04/03 1157 97.3 107 20 116/67 91 Room Air Intake & Output 04/03 1600 04/03 0800 04/03 0000 04/02 1600 04/02 0800 04/02 0000 Intake Total 0 Output Total Balance 0 Intake, Oral 0 Patient 140 lb Weight Weight Estimated Measurement Method Physical Exam: General Appearance Alert, Oriented X3, Cooperative, Mild Distress Skin No Rashes, No Breakdown HEENT Atraumatic; [place]; OTHERWISE NORMAL Cardiovascular Normal S1, Normal S2, distant heart sounds; 1-2/6 systolic murmur Lungs Bilateral rhonchi / crackles Abdomen Soft, No Tenderness Neurological Normal Speech Extremities 1-2+ bilateral edema with stasis changes. Labs/Zachary Results: Laboratory Tests 04/03 04/03 1624 1313 Coagulation PT (9.4 - 12.5 SEC) 23.3 H INR (0.90 - 1.19) 2.12 H APTT (25 - 37 SEC) 33 Urines Urine Color (YEL,AMB,STR) Pending Urine Clarity (CLEAR) Pending Urine pH (5.0 - 8.0) Pending Ur Specific [place] (1.001 - 1.035) Pending Urine Protein (NEG,<30 MG/DL) Pending Urine Ketones (NEG) Pending Urine Nitrite (NEG) Pending Urine Bilirubin (NEG) Pending Urine Urobilinogen (0.1 - 1.0 EU/dl) Pending Ur Leukocyte Esterase (NEG) Pending Ur Microscopic SEDIMENT EXAMINED Urine RBC (0 - 5 /HPF) Pending Urine Hemoglobin (NEG) Pending Urine Glucose (N MG/DL) Pending 04/03 1300 Chemistry Sodium (137 - 145 mmol/L) 147 H Potassium (3.5 - 5.1 mmol/L) 4.6 Chloride (98 - 107 mmol/L) 102 Carbon Dioxide (22 - 30 mmol/L) 29 Anion Gap (5 - 16) 16 BUN (7 - 17 mg/dL) 63 H Creatinine (0.5 - 1.0 mg/dL) 4.3 H Estimated GFR (>60 ml/min) 10 L BUN/Creatinine Ratio (7 - 25 %) 14.7 Glucose (65 - 99 mg/dL) 215 H Calcium (8.4 - 10.2 mg/dL) 9.5 Magnesium (1.6 - 2.3 mg/dL) 2.3 Total Bilirubin (0.2 - 1.3 mg/dL) 0.7 AST (14 - 36 U/L) 15 ALT (9 - 52 U/L) 14 Alkaline Phosphatase (<127 U/L) 62 Troponin I (< 0.11 ng/ml) 0.02 Xia-E-Zxlaalucyux Pept (<125 pg/mL) 5760 H Total Protein (6.3 - 8.2 g/dL) 6.9 Albumin (3.5 - 5.0 g/dL) 3.5 Globulin (1.9 - 4.2 gm/dL) 3.4 Albumin/Globulin Ratio (1.1 - 2.2 %) 1.0 L Free T4 (0.85 - 1.93 ng/dL) 1.72 Total T3 (0.97 - 1.69 ng/mL) 1.06 TSH &T3 &Free T4 Intrp (0.270 - 4.20 uIU/mL) 4.580 H Hematology CBC w Diff NO MAN DIFF REQ WBC (4.8 - 10.8 /CUMM) 6.6 RBC (4.20 - 5.40 /CUMM) 4.57 Hgb (12.0 - 16.0 G/DL) 13.3 Hct (37 - 47 %) 39.6 MCV (81.0 - 99.0 FL) 86.7 MCH (27.0 - 31.0 PG) 29.1 MCHC (33.0 - 37.0 G/DL) 33.5 RDW (11.5 - 14.5 %) 15.1 H Plt Count (130 - 400 /CUMM) 169 MPV (7.4 - 10.4 FL) 8.9 Gran % (42.2 - 75.2 %) 70.6 Lymphocytes % (20.5 - 51.1 %) 20.3 L Monocytes % (1.7 - 9.3 %) 5.8 Eosinophils % (0 - 5 %) 2.8 Basophils % (0.0 - 2.0 %) 0.5 Absolute Granulocytes (1.4 - 6.5 /CUMM) 4.7 Absolute Lymphocytes (1.2 - 3.4 /CUMM) 1.3 Absolute Monocytes (0.10 - 0.60 /CUMM) 0.4 Absolute Eosinophils (0.0 - 0.7 /CUMM) 0.2 Absolute Basophils (0.0 - 0.2 /CUMM) 0 Diagnostic Data EKG Results AF with elevated rate; LVH; RBBB; STTWCS; VPCS CXR Results IMPRESSION: 1. There is interval increase in the cardiomegaly and there is mild prominence of the central pulmonary vasculature with interval increase in the interstitial markings. The findings may be consistent with evolving congestive heart failure. Assessment/Plan Assessment/Plan Assessment: 1. Worsening SOB and edema consistent with acute on chronic HFpEF 2. Acute on chronic renal insufficiency. 3. LE edema likely related to venous insufficiency, HFpEF, 4. Mild hypernatremia 5. Mildly elevated TSH 6. History of CAD, CABG, TAVR 7. PPM Recommendations: - Telemetry admission - Serial troponins - SErial ECGs - IV lasix diuresis with monitoring of I/Os and weights / labs - Echocardiogram - Nephrology input pending Consult Acknowledgment - Thank you for your consult request.
--- NOTE | 2018-04-03 17:24 | Cons- Nephrology ---
General Information and HPI Consulting Request Date of Consult: 04/03/18 Requested By: Vipul Beltran MD Reason for Consult: CKD/KELSIE Source of Information: patient, old records Exam Limitations: no limitations History of Present Illness: The patient is an 87-year-old woman with a background that includes diabetes mellitus, hypertension, coronary artery disease status post CABG, status post TAVR, status post pacemaker, congestive heart failure, atrial fibrillation on anticoagulation and advanced CKD stage IV-V with a baseline creatinine usually in the mid threes now admitted with worsening shortness of breath. She apparently suffers from shortness of breath chronically but this morning for the first time awoke with shortness of breath without any associated chest pain, arm symptoms, diaphoresis, nausea vomiting or palpitations. She is found to be congestive heart failure with a creatinine of 4.3 and a serum sodium of 147. Her most recent creatinine available in [facility] is 3.2 from January 2017. 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 She was seen by our group while in the hospital last year but has never come to our it appears that she has been getting her outpatient renal follow-up in [place] (Dr. Penn). Past medical history is as noted above Medications: See below Family history is strongly positive for diabetes mellitus including her mother, brother and one of her 3 daughters. She apparently had a brother who was diabetic and on dialysis at the end of his life. Otherwise no family history for kidney disease. Social history: She is a , lives alone caring for herself at home, shopping is done by her daughters, stopped smoking cigarettes at age 56, no history of alcohol or drug abuse. Allergies/Medications Allergies: Coded Allergies: Sulfa (Sulfonamide Antibiotics) (RASH 01/17/16) Home Med List: Calcitriol (Rocaltrol) 0.25 MCG CAPSULE 1 CAP PO Saturday SUPPLEMENT (Reported) Carvedilol 12.5 MG TABLET 1 TAB PO BID BP (Reported) Cholecalciferol (Vitamin D3) (Vitamin D3) 2,000 UNIT TABLET 1 TAB PO DAILY VITAMIN SUPPORT (Reported) Febuxostat (Uloric) 40 MG TABLET 1 TAB PO DAILY UNKNOWN (Reported) Ferrous Sulfate 325 MG (65 MG IRON) TABLET 1 TAB PO 3XW IRON, VITAMIN ( Reported) Glimepiride (Amaryl) 2 MG TABLET 1 TAB PO QPM DM (Reported) Glimepiride (Amaryl) 2 MG TABLET 2 TAB PO DAILY DM (Reported) Potassium Chloride (K-Tab ER) 20 MEQ TABLET.ER 1 TAB PO BID SUPPLEMENT ( Reported) Sitagliptin Phosphate (Januvia) 50 MG TABLET 1 TAB PO DAILY DM (Reported) Sodium Bicarbonate 650 MG TABLET 1 TAB PO DAILY SUPPLEMENT (Reported) Torsemide 100 MG TABLET 1 TAB PO DAILY UNKNOWN (Reported) Warfarin Sodium 5 MG TABLET 1 TAB PO 1700 BLOOD THINNER (Reported) Review of Systems Review of Systems: Gen.: Appetite fair, no unexplained weight loss or weight gain Skin: No rash or jaundice HEENT: No visual or hearing disturbances, no discharge Cardiopulmonary: + shortness of breath (see HPI), no cough, chest pain GI: No nausea, vomiting, abdominal pain, diarrhea : No dysuria, hematuria or other symptoms referable to the urinary tract Musculoskeletal: No arthralgias, arthritis, myalgias, + generalized weakness Neuro: No altered mental status, speech impairment, focal weakness, paresthesias Past History Travel History Traveled to [place] past 21 day No Medical History Neurological: NONE EENT: NONE Cardiovascular: CHF, hypertension, hyperlipidemia, PACEMAKER VALVE REPLACED Respiratory: NONE Gastrointestinal: NONE Hepatic: NONE Renal: glomerulonephritis Musculoskeletal: gout Psychiatric: NONE Endocrine: diabetes Blood Disorders: NONE Cancer(s): NONE 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 MOTHER (DM). FATHER (CAD). Psychosocial History Services at Home: None Living Will? no Functional Ability ADLs Independent: dressing, eating, toileting, bathing. Ambulation: cane IADLs Independent: housework, finances, food prep, telephone, medication admin. Needs Assist: transportation. Exam & Diagnostic Data Vital Signs and I&O Vital Signs Date Time Temp Pulse Resp B/P B/P Pulse O2 O2 Flow FiO2 Mean Ox Delivery Rate 04/03 1615 98.2 70 20 144/74 98 Nasal 2.0L Cannula 04/03 1448 98.7 75 18 129/60 97 Nasal 2.0L Cannula 04/03 1311 98 Nasal 2.0L Cannula 04/03 1218 94 Nasal 2.0L Cannula 04/03 1157 97.3 107 20 116/67 91 Room Air Intake & Output 04/03 1600 04/03 0400 04/02 0400 04/01 0400 Intake Total 0 Output Total Balance 0 Intake, Oral 0 Patient 140 lb Weight Weight Estimated Measurement Method Physical Exam: General: Well-developed, elderly white female in NAD Skin: No rash or jaundice HEENT: Conjunctivae pink, sclerae anicteric, mucous membranes moist Neck: Without masses or thyromegaly, no supraclavicular or cervical adenopathy Chest: Rales two thirds of the way up bilaterally; there is a right infraclavicular pacemaker device in place and a midline sternotomy scar Heart: Irregular rhythm without S3 or rub Abdomen: Soft and nontender without palpable masses or organomegaly Extremities: +edema with nontender erythema just above the ankles bilaterally, no cyanosis Neuro: Cognitively intact, no focal findings, no asterixis or myoclonus Assessment/Plan Assessment/Recommendations Assessment: 87-year-old woman with decompensated congestive heart failure/pulmonary edema with mild hypernatremia (on sodium bicarbonate tablets) and severe renal dysfunction most of which is on a chronic basis. I do not know what her recent baseline creatinine has been but it is certainly conceivable that her current clinical status represents end-stage renal disease with volume overload and cardiac decompensation. Alternatively, CHF may be the primary event with worsening renal function due to impaired renal perfusion. Recommendations: 1. Renal ultrasound to rule out an obstructive component although this is highly unlikely. 2. Lasix 80 mg IV every 8-12 hours; if response is inadequate will need to add metolazone; hopefully dialysis can be avoided on this admission. 3. Would hold Coumadin and instead maintain her on heparin for now. 4. Hold sodium bicarbonate. 5. Would not restrict p.o. fluids (because of the elevated serum sodium). 6. 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 I will discuss further with the patient and her family. Thank you. I will follow up.
[2018-04-03 18:12] VITALS: BP 110/70
[2018-04-03] MEDS ORDERED: COUMADIN2 M1 PO (19:57)
[2018-04-03] MEDS ORDERED: COUMADIN5 M2 PO (19:58)
[2018-04-03] MEDS ORDERED: BUMETANIDE2 M1 PO (20:01)
--- NOTE | 2018-04-03 22:31 | ULTRASOUND REPORT ---
EXAMINATION: RENAL ULTRASOUND CLINICAL INFORMATION: Elevated creatinine. COMPARISON: December 2016. TECHNIQUE: Real-time imaging of the kidneys and bladder. FINDINGS: RIGHT KIDNEY: There is neither hydronephrosis nor nephrolithiasis. There is renal cortical thinning diffusely. The right kidney measures 9.3 cm. LEFT KIDNEY: There is neither hydronephrosis nor nephrolithiasis. There is renal cortical thinning diffusely. The left kidney measures 9.1 cm. BLADDER: The urinary bladder is partially filled with a Cano catheter in place. There is no wall thickening. There is no pelvic free fluid. IMPRESSION: Neither hydronephrosis nor nephrolithiasis. Mild diffuse bilateral renal cortical thinning.
[2018-04-03 23:14] VITALS: BP 102/64
[2018-04-04 06:45] VITALS: BP 116/68
--- NOTE | 2018-04-04 07:09 | PN- Housestaff ---
Jake HUNT,[facility] 04/04/18 0708: Subjective Follow-up For: Fluid Overload ? CHF Exacerbation Tele-Events Since Last Visit: Constantin with HR 64-70. No overnight events. Subjective: Patient seen and examined at bedside. States her breathing has improved since yesterday. No other complaints. Review of Systems Constitutional: Reports: no symptoms. Objective Last 24 Hrs of Vital Signs/I&O Vital Signs Date Time Temp Pulse Resp B/P B/P Pulse O2 O2 Flow FiO2 Mean Ox Delivery Rate 04/04 1432 97.5 59 18 110/64 95 04/04 0945 94 Nasal 2.0L Cannula 04/04 0645 97.8 80 22 116/68 93 04/04 0000 Nasal 2.0L Cannula 04/03 2314 97.8 70 18 102/64 97 Nasal Cannula 04/03 2246 73 110/70 04/03 1856 98 Nasal 2.0L Cannula 04/03 1812 97.6 73 20 110/70 98 04/03 1615 98.2 70 20 144/74 98 Nasal 2.0L Cannula Intake & Output 04/04 1600 04/04 0800 04/04 0000 Intake Total 560 208 Output Total 250 300 500 Balance 310 -92 -500 Intake, IV 160 208 Intake, Oral 400 Output, Urine 250 300 500 Patient 142 lb Weight Weight Bed scale Measurement Method Physical Exam General Appearance: Alert, Oriented X3, Cooperative, Mild Distress Skin: No Rashes, No Breakdown Skin Temp/Moisture Exam: Warm/Dry Sepsis Skin Exam (color): Normal for Ethnicity HEENT: Atraumatic Cardiovascular: Normal S1, Normal S2, No Murmurs Lungs: Normal Air Movement, inspiratory crackles from mid-lower lobes bilaterally Abdomen: Soft, No Tenderness Neurological: Normal Speech Extremities: bilateral lower extremity edema Last 24 Hrs of Lab/Zachary Results Last 24 Hrs of Labs/Mics: Laboratory Tests 04/04/18 0632: Anion Gap 15, Estimated GFR 11 L, BUN/Creatinine Ratio 16.7, PT 25.2 H, INR 2.29 H, APTT > 120 *H, CBC w Diff NO MAN DIFF REQ, RBC 4.24, MCV 86.4, MCH 29.0 , MCHC 33.6, RDW 15.1 H, MPV 10.1, Gran % 69.4, Lymphocytes % 20.4 L, Monocytes % 6.9, Eosinophils % 2.8, Basophils % 0.5, Absolute Granulocytes 5.5, Absolute Lymphocytes 1.6, Absolute Monocytes 0.5, Absolute Eosinophils 0.2, Absolute Basophils 0 04/03/18 1624: Urine Color YEL, Urine Clarity CLEAR, Urine pH 6.0, Ur Specific [place] 1.015, Urine Protein TRACE H, Urine Ketones NEG, Urine Nitrite NEG, Urine Bilirubin NEG, Urine Urobilinogen 0.2, Ur Leukocyte Esterase SMALL H, Ur Microscopic SEDIMENT EXAMINED, Urine RBC 5-10 H, Ur Epithelial Cells FEW, Urine Bacteria MOD H, Urine Hemoglobin SMALL H, Urine Glucose NEG Assessment/Plan Assessment: 87-year-old female past medical history of hypertension, A.fib on Warfarin, hyperlipidemia, CHF, TAVR and chronic kidney disease presented to the ED with complains of shortness of breath for the past week. Assessment: 1. Fluid Overload 2. Decompensated CHF 3. Prolonged QTc of 494 4. Elevated ProBNP 5. Thrombocytopenia 6. History of CKD Stage V 7. History of A.fib Plan: * Continue monitoring on telemetry for now. * Continue oxygen supplementation to maintain target oxygen sats > 92%. * Her dyspnea is likely secondary to fluid overload from her chronic kidney disease with possible component of CHF. * Diurese with IV Lasix 80mg BID for today. * Switch her to Bumex 2mg TID (home dose) starting tomorrow. * Continue Cano with Strict I's&Os * Her baseline Cr is around 3-4. Per conversation with her diagnostic radiologist today, the patient followed up last month and her Cr was 4.3. Also mentioned that the patient has expressed her wishes clearly against dialysis. * Daily weights * Hold NaHCO3 in the setting of fluid overload. * Add nitropaste 0.5gm q6. If her blood pressure is able to tolerate can be increased to 1gm q6. * Echocardiogram - pending * Discontinue IV Heparin * Continue carvedilol. * Monitor CBC for thrombocytopenia. Could be due to the heparin which has now been discontinued * Hold oral hypoglycemics * Insulin SS with Accucheks. * Diet: Heart Healthy * DVT Prophylaxis: On Coumadin. Daily monitoring of INR * Code: DNR/DNI Problem List: 1. CKD (chronic kidney disease) Pain Ratin Pain Location: none Pain Goal: Remain pain free Pain Plan: none Tomorrow's Labs & Rationales: CBC, BEP Filiberto HUNT,Shala 04/04/18 1345: Attending MD Review Statement Attending Statement Attending MD Statement: examined this patient, discuss w/resident/PA/RESEARCH EDITOR, agreed w/resident/PA/RESEARCH EDITOR, reviewed EMR data (avail), discussed with nursing, discussed with case mgmt, reviewed images Attending Assessment/Plan: Patient says she feels better although she still sitting upright. She is on 2 L of oxygen and still has crackles on exam. She is an 87-year-old with a past medical history of diabetes, hypertension, stage V CK D and chronic diastolic heart failure. She is here with acute volume overload both an exacerbation of a diastolic heart failure and predominantly secondary to Alexandro on CKD. We are diuresing her with IV Lasix at 80 IV twice a day while watching the renal function closely. Will add low-dose Nitropaste for cardiology's recommendations as recommended by nephrology and keep a close watch on the BUN and creatinine. We stopped the Coumadin and transitioned her to IV heparin should her renal function deteriorate and access is needed for urgent dialysis.
[2018-04-04 08:16] LABS: ABSOLUTE BASOPHIL COUNT 0 /CUMM (0.0-0.2); ABSOLUTE EOSINOPHIL COUNT 0.2 /CUMM (0.0-0.7); ABSOLUTE GRANULOCYTE CT 5.5 /CUMM (1.4-6.5); ABSOLUTE LYMPH COUNT 1.6 /CUMM (1.2-3.4); ABSOLUTE MONOCYTE COUNT 0.5 /CUMM (0.10-0.60); BASOPHIL % 0.5 % (0.0-2.0); EOSINOPHIL % 2.8 % (0-5); GRANULOCYTE % 69.4 % (42.2-75.2); HEMATOCRIT 36.7 % (37-47); MEAN CORPUSCULAR HGB CONC 33.6 G/DL (33.0-37.0); MEAN CORPUSCULAR VOLUME 86.4 FL (81.0-99.0); MEAN PLATELET VOLUME 10.1 FL (7.4-10.4); PLATELET COUNT 124 /CUMM (130-400); RBC DISTRIBUTION WIDTH 15.1 % (11.5-14.5); RED BLOOD CELL CT 4.24 /CUMM (4.20-5.40); WHITE BLOOD CELL COUNT 7.9 /CUMM (4.8-10.8)
[2018-04-04 08:28] LABS: PT 25.2 SEC (9.4-12.5)
[2018-04-04 08:32] LABS: PTT > 120 SEC (25-37)
--- NOTE | 2018-04-04 11:51 | PN- Cardiology ---
Subjective Subjective: Clinically doing somewhat better. Objective Vital Signs and I&Os Vital Signs Date Time Temp Pulse Resp B/P B/P Pulse O2 O2 Flow FiO2 Mean Ox Delivery Rate 04/04 0945 94 Nasal 2.0L Cannula 04/04 0645 97.8 80 22 116/68 93 04/04 0000 Nasal 2.0L Cannula 04/03 2314 97.8 70 18 102/64 97 Nasal Cannula 04/03 2246 73 110/70 04/03 1856 98 Nasal 2.0L Cannula 04/03 1812 97.6 73 20 110/70 98 04/03 1615 98.2 70 20 144/74 98 Nasal 2.0L Cannula 04/03 1448 98.7 75 18 129/60 97 Nasal 2.0L Cannula 04/03 1311 98 Nasal 2.0L Cannula 04/03 1218 94 Nasal 2.0L Cannula 04/03 1157 97.3 107 20 116/67 91 Room Air Intake & Output 04/04 1600 04/04 0800 04/04 0000 04/03 1600 04/03 0800 04/03 0000 Intake Total 208 0 Output Total 300 500 Balance -92 -500 0 Intake, IV 208 Intake, Oral 0 Output, Urine 300 500 Patient 142 lb 140 lb Weight Weight Bed scale Estimated Measurement Method Physical Exam: General Appearance Alert, Oriented X3, Cooperative, Mild Distress Skin No Rashes, No Breakdown HEENT Atraumatic; [place]; OTHERWISE NORMAL Cardiovascular Normal S1, Normal S2, distant heart sounds; 1-2/6 systolic murmur Lungs Bilateral rhonchi / crackles Abdomen Soft, No Tenderness Neurological Normal Speech Extremities 1-2+ bilateral edema with stasis changes. Current Medications: Current Medications Sig/Madisyn Start time Last Medication Dose Route Stop Time Status Admin Albuterol Sulfate 3 ML ONCE ONE 04/03 1300 DC 04/03 INH 04/03 1301 1310 Calcitriol 0.25 MCG 04/04 0900 AC 04/04 PO 0753 Carvedilol 12.5 MG BID 04/03 2100 AC 04/04 PO 0753 Furosemide 80 MG 7:30 AM, & 4:30 PM 04/03 1630 AC 04/04 IV 0753 Furosemide 0 .STK-MED ONE 04/03 1604 DC IV Furosemide 0 .STK-MED ONE 04/03 1503 DC IV Furosemide 40 MG ONCE ONE 04/03 1430 DC 04/03 IV 04/03 1431 1459 Heparin Sodium 5,000 UNIT Q8 04/03 2200 CAN (Porcine) SC Heparin Sodium/ 25,000 UNIT Q24H 04/03 1745 AC 04/03 Dextrose IV 2340 Dextrose/Water 500 ML Insulin Aspart 0 TIDAC 04/03 1700 AC SC Ipratropium [place] 2.5 ML ONCE ONE 04/03 1300 DC 04/03 INH 04/03 1301 1310 Results Last 48 Hrs of Labs/Mics: Laboratory Tests 04/04/18 0632: Anion Gap 15, Estimated GFR 11 L, BUN/Creatinine Ratio 16.7, PT 25.2 H, INR 2.29 H, APTT > 120 *H, CBC w Diff NO MAN DIFF REQ, RBC 4.24, MCV 86.4, MCH 29.0 , MCHC 33.6, RDW 15.1 H, MPV 10.1, Gran % 69.4, Lymphocytes % 20.4 L, Monocytes % 6.9, Eosinophils % 2.8, Basophils % 0.5, Absolute Granulocytes 5.5, Absolute Lymphocytes 1.6, Absolute Monocytes 0.5, Absolute Eosinophils 0.2, Absolute Basophils 0 04/03/18 1624: Urine Color YEL, Urine Clarity CLEAR, Urine pH 6.0, Ur Specific [place] 1.015, Urine Protein TRACE H, Urine Ketones NEG, Urine Nitrite NEG, Urine Bilirubin NEG, Urine Urobilinogen 0.2, Ur Leukocyte Esterase SMALL H, Ur Microscopic SEDIMENT EXAMINED, Urine RBC 5-10 H, Ur Epithelial Cells FEW, Urine Bacteria MOD H, Urine Hemoglobin SMALL H, Urine Glucose NEG 04/03/18 1313: PT 23.3 H, INR 2.12 H, APTT 33 04/03/18 1300: Anion Gap 16, Estimated GFR 10 L, BUN/Creatinine Ratio 14.7, Glucose 215 H, Calcium 9.5, Magnesium 2.3, Total Bilirubin 0.7, AST 15, ALT 14, Alkaline Phosphatase 62, Troponin I 0.02, Adc-R-Gvalpnxryvw Pept 5760 H, Total Protein 6.9, Albumin 3.5, Globulin 3.4, Albumin/Globulin Ratio 1.0 L, Free T4 1.72, Total T3 1.06, TSH &T3 &Free T4 Intrp 4.580 H, CBC w Diff NO MAN DIFF REQ, RBC 4.57, MCV 86.7, MCH 29.1, MCHC 33.5, RDW 15.1 H, MPV 8.9, Gran % 70.6, Lymphocytes % 20.3 L, Monocytes % 5.8, Eosinophils % 2.8, Basophils % 0.5, Absolute Granulocytes 4.7, Absolute Lymphocytes 1.3, Absolute Monocytes 0.4, Absolute Eosinophils 0.2, Absolute Basophils 0 Assessment/Plan Assessment/Plan Assessment: 1. Worsening SOB and edema consistent with acute on chronic HFpEF-slightly improved clinically with some diuresis 2. Acute on chronic renal insufficiency.-Creatinine slightly improved at 3.9 3. LE edema likely related to venous insufficiency, HFpEF, 4. Mild hypernatremia 5. Mildly elevated TSH 6. History of CAD, CABG, TAVR 7. PPM Recommendations: -Continue current medication regimen -Continue gentle diuresis with IV Lasix -Continue to monitor intakes, outputs, daily weights -Echocardiogram pending - Continue telemetry? Yes
--- NOTE | 2018-04-04 12:25 | PN- Nephrology ---
Assessment/Plan Nephrology Assessment: 1. 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 KELSIE secondary to cardiac decompensation with poor renal perfusion - slightly improved 3. Hypernatremia - improved 4. Decompensated CHF with some symptomatic improvement but with persistent rales (?chronic) 5. History of diabetes mellitus, hypertension, CAD status post CABG, status post TAVR, status post pacemaker, congestive heart failure and atrial fibrillation on anticoagulation Suggestion: 1. Would contact her outpatient advertising rep (Dr. Ring in [place]) and discuss putting her back on her outpatient diuretic regimen which I now understand to be high dose bumetanide 2. Monitor intake and output, weights, chemistries daily. 3. Consider nitrates i.e. isosorbide if Cardiology concurs. 4. Patient and her daughter have apparently discussed the topic of dialysis with Dr. Ring and have decided that she would not pursue that option, a decision with which I agree. Subjective Subjective: Patient states that she feels a bit better today which she attributes primarily to being on oxygen. Urine output 500 mL overnight. Creatinine slightly improved to 3.9 (4.3). Serum sodium down from 147 to 145. Other electrolytes okay. Objective Vital Signs and I&Os Vital Signs Date Time Temp Pulse Resp B/P B/P Pulse O2 O2 Flow FiO2 Mean Ox Delivery Rate 04/04 0945 94 Nasal 2.0L Cannula 04/04 0645 97.8 80 22 116/68 93 04/04 0000 Nasal 2.0L Cannula 04/03 2314 97.8 70 18 102/64 97 Nasal Cannula 04/03 2246 73 110/70 04/03 1856 98 Nasal 2.0L Cannula 04/03 1812 97.6 73 20 110/70 98 04/03 1615 98.2 70 20 144/74 98 Nasal 2.0L Cannula 04/03 1448 98.7 75 18 129/60 97 Nasal 2.0L Cannula 04/03 1311 98 Nasal 2.0L Cannula Intake & Output 04/04 1600 04/04 0400 04/03 1600 04/03 0400 04/02 1600 04/02 0400 Intake Total 208 0 Output Total 300 500 Balance -92 -500 0 Intake, IV 208 Intake, Oral 0 Output, Urine 300 500 Patient 142 lb 140 lb Weight Weight Bed scale Estimated Measurement Method Physical Exam: General: Well-developed, elderly white female on nasal O2 in NAD Skin: No rash or jaundice HEENT: Conjunctivae pink, sclerae anicteric, mucous membranes dry Neck: Without masses or thyromegaly, no supraclavicular or cervical adenopathy Chest: Rales two thirds of the way up bilaterally; there is a right infraclavicular pacemaker device in place and a midline sternotomy scar Heart: Irregular rhythm without S3 or rub Abdomen: Soft and nontender without palpable masses or organomegaly Extremities: +edema with nontender erythema just above the ankles bilaterally, no cyanosis Neuro: Cognitively intact, no focal findings, no asterixis or myoclonus Results Pertinent Lab Results: Laboratory Tests 04/04 04/03 0632 1624 Chemistry Sodium (137 - 145 mmol/L) 145 Potassium (3.5 - 5.1 mmol/L) 3.7 Chloride (98 - 107 mmol/L) 103 Carbon Dioxide (22 - 30 mmol/L) 27 Anion Gap (5 - 16) 15 BUN (7 - 17 mg/dL) 65 H Creatinine (0.5 - 1.0 mg/dL) 3.9 H Estimated GFR (>60 ml/min) 11 L BUN/Creatinine Ratio (7 - 25 %) 16.7 Coagulation PT (9.4 - 12.5 SEC) 25.2 H INR (0.90 - 1.19) 2.29 H APTT (25 - 37 SEC) > 120 *H Hematology CBC w Diff NO MAN DIFF REQ WBC (4.8 - 10.8 /CUMM) 7.9 RBC (4.20 - 5.40 /CUMM) 4.24 Hgb (12.0 - 16.0 G/DL) 12.3 Hct (37 - 47 %) 36.7 L MCV (81.0 - 99.0 FL) 86.4 MCH (27.0 - 31.0 PG) 29.0 MCHC (33.0 - 37.0 G/DL) 33.6 RDW (11.5 - 14.5 %) 15.1 H Plt Count (130 - 400 /CUMM) 124 L MPV (7.4 - 10.4 FL) 10.1 Gran % (42.2 - 75.2 %) 69.4 Lymphocytes % (20.5 - 51.1 %) 20.4 L Monocytes % (1.7 - 9.3 %) 6.9 Eosinophils % (0 - 5 %) 2.8 Basophils % (0.0 - 2.0 %) 0.5 Absolute Granulocytes (1.4 - 6.5 /CUMM) 5.5 Absolute Lymphocytes (1.2 - 3.4 /CUMM) 1.6 Absolute Monocytes (0.10 - 0.60 /CUMM) 0.5 Absolute Eosinophils (0.0 - 0.7 /CUMM) 0.2 Absolute Basophils (0.0 - 0.2 /CUMM) 0 Urines Urine Color (YEL,AMB,STR) YEL Urine Clarity (CLEAR) CLEAR Urine pH (5.0 - 8.0) 6.0 Ur Specific [place] (1.001 - 1.035) 1.015 Urine Protein (NEG,<30 MG/DL) TRACE H Urine Ketones (NEG) NEG Urine Nitrite (NEG) NEG Urine Bilirubin (NEG) NEG Urine Urobilinogen (0.1 - 1.0 EU/dl) 0.2 Ur Leukocyte Esterase (NEG) SMALL H Ur Microscopic SEDIMENT EXAMINED Urine RBC (0 - 5 /HPF) 5-10 H Ur Epithelial Cells (NONE,FEW) FEW Urine Bacteria (NEG/NONE) MOD H Urine Hemoglobin (NEG) SMALL H Urine Glucose (N MG/DL) NEG 04/03 04/03 1313 1300 Chemistry Sodium (137 - 145 mmol/L) 147 H Potassium (3.5 - 5.1 mmol/L) 4.6 Chloride (98 - 107 mmol/L) 102 Carbon Dioxide (22 - 30 mmol/L) 29 Anion Gap (5 - 16) 16 BUN (7 - 17 mg/dL) 63 H Creatinine (0.5 - 1.0 mg/dL) 4.3 H Estimated GFR (>60 ml/min) 10 L BUN/Creatinine Ratio (7 - 25 %) 14.7 Glucose (65 - 99 mg/dL) 215 H Calcium (8.4 - 10.2 mg/dL) 9.5 Magnesium (1.6 - 2.3 mg/dL) 2.3 Total Bilirubin (0.2 - 1.3 mg/dL) 0.7 AST (14 - 36 U/L) 15 ALT (9 - 52 U/L) 14 Alkaline Phosphatase (<127 U/L) 62 Troponin I (< 0.11 ng/ml) 0.02 Mdt-C-Brozgtewhml Pept (<125 pg/mL) 5760 H Total Protein (6.3 - 8.2 g/dL) 6.9 Albumin (3.5 - 5.0 g/dL) 3.5 Globulin (1.9 - 4.2 gm/dL) 3.4 Albumin/Globulin Ratio (1.1 - 2.2 %) 1.0 L Free T4 (0.85 - 1.93 ng/dL) 1.72 Total T3 (0.97 - 1.69 ng/mL) 1.06 TSH &T3 &Free T4 Intrp (0.270 - 4.20 uIU/mL) 4.580 H Coagulation PT (9.4 - 12.5 SEC) 23.3 H INR (0.90 - 1.19) 2.12 H APTT (25 - 37 SEC) 33 Hematology CBC w Diff NO MAN DIFF REQ WBC (4.8 - 10.8 /CUMM) 6.6 RBC (4.20 - 5.40 /CUMM) 4.57 Hgb (12.0 - 16.0 G/DL) 13.3 Hct (37 - 47 %) 39.6 MCV (81.0 - 99.0 FL) 86.7 MCH (27.0 - 31.0 PG) 29.1 MCHC (33.0 - 37.0 G/DL) 33.5 RDW (11.5 - 14.5 %) 15.1 H Plt Count (130 - 400 /CUMM) 169 MPV (7.4 - 10.4 FL) 8.9 Gran % (42.2 - 75.2 %) 70.6 Lymphocytes % (20.5 - 51.1 %) 20.3 L Monocytes % (1.7 - 9.3 %) 5.8 Eosinophils % (0 - 5 %) 2.8 Basophils % (0.0 - 2.0 %) 0.5 Absolute Granulocytes (1.4 - 6.5 /CUMM) 4.7 Absolute Lymphocytes (1.2 - 3.4 /CUMM) 1.3 Absolute Monocytes (0.10 - 0.60 /CUMM) 0.4 Absolute Eosinophils (0.0 - 0.7 /CUMM) 0.2 Absolute Basophils (0.0 - 0.2 /CUMM) 0
[2018-04-04 14:32] VITALS: BP 110/64
--- NOTE | 2018-04-04 15:14 | PN- Student ---
Luis Frank 04/04/18 1507: Subjective Subjective: Patient is in no acute distress this morning. She feels well and wishes to go home. Her daughter came today and helped to clarify her medication list. The food processor discussed dialysis with the patient and her daughter, and both clarified that the patient is not willing to undergo that procedure. Objective Objective: Patient is alert and oriented speaking in full sentances. Her skin is PWD, but her muscous membranes appear dry. Bilateral rhales are heard from the lung base to apex. Dependent edema is slightly improved. Current Medications Sig/Madisyn Start time Last Medication Dose Route Stop Time Status Admin Calcitriol 0.25 MCG 04/04 0900 AC 04/04 PO 0753 Carvedilol 12.5 MG BID 04/03 2100 AC 04/04 PO 0753 Furosemide 80 MG 7:30 AM, & 4:30 PM 04/03 1630 AC 04/04 IV 0753 Furosemide 0 .STK-MED ONE 04/03 1604 DC IV Heparin Sodium 5,000 UNIT Q8 04/03 2200 CAN (Porcine) SC Heparin Sodium/ 25,000 UNIT Q24H 04/03 1745 DC 04/03 Dextrose IV 2340 Dextrose/Water 500 ML Insulin Aspart 0 TIDAC 04/03 1700 AC 04/04 SC 1303 Nitroglycerin 0.5 GM Q6 04/04 1345 AC TOP Warfarin Sodium 5 MG COUMADIN 1700 04/04 1700 AC PO 04/04 2359 Laboratory Tests 04/04 04/03 0632 1624 Chemistry Sodium (137 - 145 mmol/L) 145 Potassium (3.5 - 5.1 mmol/L) 3.7 Chloride (98 - 107 mmol/L) 103 Carbon Dioxide (22 - 30 mmol/L) 27 Anion Gap (5 - 16) 15 BUN (7 - 17 mg/dL) 65 H Creatinine (0.5 - 1.0 mg/dL) 3.9 H Estimated GFR (>60 ml/min) 11 L BUN/Creatinine Ratio (7 - 25 %) 16.7 Coagulation PT (9.4 - 12.5 SEC) 25.2 H INR (0.90 - 1.19) 2.29 H APTT (25 - 37 SEC) > 120 *H Hematology CBC w Diff NO MAN DIFF REQ WBC (4.8 - 10.8 /CUMM) 7.9 RBC (4.20 - 5.40 /CUMM) 4.24 Hgb (12.0 - 16.0 G/DL) 12.3 Hct (37 - 47 %) 36.7 L MCV (81.0 - 99.0 FL) 86.4 MCH (27.0 - 31.0 PG) 29.0 MCHC (33.0 - 37.0 G/DL) 33.6 RDW (11.5 - 14.5 %) 15.1 H Plt Count (130 - 400 /CUMM) 124 L MPV (7.4 - 10.4 FL) 10.1 Gran % (42.2 - 75.2 %) 69.4 Lymphocytes % (20.5 - 51.1 %) 20.4 L Monocytes % (1.7 - 9.3 %) 6.9 Eosinophils % (0 - 5 %) 2.8 Basophils % (0.0 - 2.0 %) 0.5 Absolute Granulocytes (1.4 - 6.5 /CUMM) 5.5 Absolute Lymphocytes (1.2 - 3.4 /CUMM) 1.6 Absolute Monocytes (0.10 - 0.60 /CUMM) 0.5 Absolute Eosinophils (0.0 - 0.7 /CUMM) 0.2 Absolute Basophils (0.0 - 0.2 /CUMM) 0 Urines Urine Color (YEL,AMB,STR) YEL Urine Clarity (CLEAR) CLEAR Urine pH (5.0 - 8.0) 6.0 Ur Specific [place] (1.001 - 1.035) 1.015 Urine Protein (NEG,<30 MG/DL) TRACE H Urine Ketones (NEG) NEG Urine Nitrite (NEG) NEG Urine Bilirubin (NEG) NEG Urine Urobilinogen (0.1 - 1.0 EU/dl) 0.2 Ur Leukocyte Esterase (NEG) SMALL H Ur Microscopic SEDIMENT EXAMINED Urine RBC (0 - 5 /HPF) 5-10 H Ur Epithelial Cells (NONE,FEW) FEW Urine Bacteria (NEG/NONE) MOD H Urine Hemoglobin (NEG) SMALL H Urine Glucose (N MG/DL) NEG Vital Signs Date Time Temp Pulse Resp B/P B/P Pulse O2 O2 Flow FiO2 Mean Ox Delivery Rate 04/04 1432 97.5 59 18 110/64 95 04/04 0945 94 Nasal 2.0L Cannula 04/04 0645 97.8 80 22 116/68 93 04/04 0000 Nasal 2.0L Cannula 04/03 2314 97.8 70 18 102/64 97 Nasal Cannula 04/03 2246 73 110/70 04/03 1856 98 Nasal 2.0L Cannula 04/03 1812 97.6 73 20 110/70 98 04/03 1615 98.2 70 20 144/74 98 Nasal 2.0L Cannula Intake & Output 04/04 1600 04/04 0800 04/04 0000 Intake Total 560 208 Output Total 250 300 500 Balance 310 -92 -500 Intake, IV 160 208 Intake, Oral 400 Output, Urine 250 300 500 Patient 142 lb Weight Weight Bed scale Measurement Method Assessment/Plan Assessment: 76 YOF with a history of HTN, HLD, CHF, CKD5, DM, Gout, CABGx3, and Pacemaker placement with acute decompensation of heart failure and acute on chronic kidney injury. Plan: - Optimize and clarify medications prior to discharge
--- NOTE | 2018-04-04 16:26 | Patient Discharge Instructions ---
Discharge Instructions General Discharge Information You were seen/treated for: Dyspnea Fluid Overload Special Instructions: Please follow up with your PCP, executive manager and filteration operator within one week of discharge. Please get your INR checked in 3 days and dose coumadin accordingly Diet Continue normal diet: Yes Recommended Diet: Diabetic, Heart Healthy Activity Full Activity/No Limits: Yes Acute Coronary Syndrome Inclusion Criteria At DC or during hospital stay patient has or had the following: ACS DIAGNOSIS No Discharge Core Measures Meds if any: Prescribed or Continued at Discharge Meds if any: NOT Prescribed or Continued at Discharge Congestive Heart Failure Inclusion Criteria At DC or during hospital stay patient has or had the following: CHF DIAGNOSIS No Discharge Core Measures Meds if any: Prescribed or Continued at Discharge Meds if any: NOT Prescribed or Continued at Discharge Cerebrovascular accident Inclusion Criteria At DC or during hospital stay patient has or had the following: CVA/TIA Diagnosis No Discharge Core Measures Meds if any: Prescribed or Continued at Discharge Meds if any: NOT Prescribed or Continued at Discharge Venous thromboembolism Inclusion Criteria VTE Diagnosis No VTE Type NONE VTE Confirmed by (Test) NONE Discharge Core Measures - Per Current guidelines, there needs to be overlap - treatment for the first 5 days of Warfarin therapy. - If discharged on Warfarin prior to 5 days of - overlap therapy, the patient will need to be - assessed for post discharge needs including - *Post discharge parental anticoagulation - *Warfarin and/or parental anticoagulation education - *Follow up date to check INR post discharge At least 5 days overlap therapy as Inpatient No Meds if any: Prescribed or Continued at Discharge Note: Overlap Therapy is Warfarin and Anticoagulant Meds if any: NOT Prescribed or Continued at Discharge
[2018-04-04 22:00] VITALS: BP 118/60
[2018-04-05 06:49] VITALS: BP 100/60
[2018-04-05 08:01] LABS: ABSOLUTE BASOPHIL COUNT 0 /CUMM (0.0-0.2); ABSOLUTE EOSINOPHIL COUNT 0.2 /CUMM (0.0-0.7); ABSOLUTE GRANULOCYTE CT 4.2 /CUMM (1.4-6.5); ABSOLUTE LYMPH COUNT 1.6 /CUMM (1.2-3.4); ABSOLUTE MONOCYTE COUNT 0.5 /CUMM (0.10-0.60); BASOPHIL % 0.5 % (0.0-2.0); EOSINOPHIL % 3.5 % (0-5); HEMATOCRIT 36.3 % (37-47); MEAN CORPUSCULAR HGB 29.2 PG (27.0-31.0); MEAN CORPUSCULAR VOLUME 85.9 FL (81.0-99.0); MEAN PLATELET VOLUME 9.7 FL (7.4-10.4); RBC DISTRIBUTION WIDTH 15.1 % (11.5-14.5); RED BLOOD CELL CT 4.23 /CUMM (4.20-5.40); WHITE BLOOD CELL COUNT 6.6 /CUMM (4.8-10.8)
[2018-04-05 08:19] LABS: PT 20.7 SEC (9.4-12.5)
--- NOTE | 2018-04-05 08:37 | PN- Att Addend ---
Attending Addendum Attending Brief Note Patient seen and examined. Overall she feels okay. She continues to diurese and has now been switched to by mouth Bumex. On physical exam MAXIMUM TEMPERATURE is 97.8, blood pressures 100/60, pulse is 78 and she's breathing at 18-20, she is awake and alert, lungs have decreased breath sounds and crackles throughout, heart is S1-S2 irregular, abdomen is soft and she does have some edema. Her BUN is up to 67 and her creatinine is 4.4, INR is 1.89 She is an 87-year-old with diabetes, hypertension and advanced age 5 CKD. She is here with an acute diastolic heart failure and volume overload which I think is all secondary to her worsening renal function. We spoke to Joseph Alfaro MD yesterday and after clarifying her outpatient by mouth diuretic regimen we switched her to that which is high-dose Bumex 2 mg every 8 today. Her creatinine was 4.3 on admission went down to 3.9 and is 4.4 again today. We'll keep her on this current regimen of Bumex and follow the BUN and creatinine closely. She and her daughter are explicitly clear that they're not interested in pursuing dialysis so we are dosing her Coumadin and will keep her INR therapeutic. We'll keep the [place] in for strict I's and O's until her creatinine somewhat stabilizes.
[2018-04-05 08:58] LABS: PLATELET COUNT 113 /CUMM (130-400)
--- NOTE | 2018-04-05 09:22 | PN- Cardiology ---
Subjective Subjective: stable and improving Objective Vital Signs and I&Os Vital Signs Date Time Temp Pulse Resp B/P B/P Pulse O2 O2 Flow FiO2 Mean Ox Delivery Rate 04/05 0649 97.8 78 18 100/60 100 Nasal 2.0L Cannula 04/042 Nasal 2.0L Cannula 04/04 2200 97.6 70 18 118/60 97 Nasal Cannula 04/04 2047 78 118/60 04/04 1753 92 Nasal 2.0L Cannula 04/04 1432 97.5 59 18 110/64 95 04/04 0945 94 Nasal 2.0L Cannula Intake & Output 04/05 1600 04/05 0800 04/05 0000 04/04 1600 04/04 0800 04/04 0000 Intake Total 100 240 560 208 Output Total 400 300 250 300 500 Balance -300 -60 310 -92 -500 Intake, IV 160 208 Intake, Oral 100 240 400 Output, Urine 400 300 250 300 500 Patient 145 lb 142 lb Weight Weight Bed scale Bed scale Measurement Method Physical Exam: General Appearance Alert, Oriented X3, Cooperative, Mild Distress Skin No Rashes, No Breakdown HEENT Atraumatic; [place]; OTHERWISE NORMAL Cardiovascular Normal S1, Normal S2, distant heart sounds; 1-2/6 systolic murmur Lungs Bilateral rhonchi / crackles Abdomen Soft, No Tenderness Neurological Normal Speech Extremities 1-2+ bilateral edema with stasis changes. Current Medications: Current Medications Sig/Madisyn Start time Last Medication Dose Route Stop Time Status Admin Bumetanide 2 MG Q8 04/040 AC 04/05 PO 0510 Calcitriol 0.25 MCG 04/04 0900 AC 04/04 PO 0753 Carvedilol 12.5 MG BID 04/03 2100 AC 04/04 PO 2047 Furosemide 80 MG 7:30 AM, & 4:30 PM 04/03 1630 DC 04/04 IV 04/04 1800 1622 Heparin Sodium/ 25,000 UNIT Q24H 04/03 1745 DC 04/03 Dextrose IV 2340 Dextrose/Water 500 ML Insulin Aspart 0 TIDAC 04/03 1700 AC 04/04 SC 1708 Nitroglycerin 0.5 GM Q6 04/04 1345 04/05 TOP 0510 Patient Medication 1 ED ONE ONE 04/04 1600 DC Teaching ED 04/04 1601 Potassium Chloride 40 MEQ ONCE ONE 04/04 1830 DC 04/04 PO 04/04 1831 1915 Warfarin Sodium 5 MG COUMADIN 1700 04/04 1700 DC 04/04 PO 04/04 8239 1622 Results Last 48 Hrs of Labs/Mics: Laboratory Tests 04/05/18 0635: Anion Gap 14, Estimated GFR 10 L, BUN/Creatinine Ratio 15.2, PT 20.7 H, INR 1.89 H, CBC w Diff NO MAN DIFF REQ, RBC 4.23, MCV 85.9, MCH 29.2, MCHC 34.0, RDW 15.1 H, MPV 9.7, Gran % 64.0, Lymphocytes % 24.5, Monocytes % 7.5, Eosinophils % 3.5, Basophils % 0.5, Absolute Granulocytes 4.2, Absolute Lymphocytes 1.6, Absolute Monocytes 0.5, Absolute Eosinophils 0.2, Absolute Basophils 0 04/04/18 1600: APTT Cancelled 04/04/18 0632: Anion Gap 15, Estimated GFR 11 L, BUN/Creatinine Ratio 16.7, Phosphorus 6.1 H, Magnesium 2.2, PT 25.2 H, INR 2.29 H, APTT > 120 *H, CBC w Diff NO MAN DIFF REQ, RBC 4.24, MCV 86.4, MCH 29.0, MCHC 33.6, RDW 15.1 H, MPV 10.1, Gran % 69.4 , Lymphocytes % 20.4 L, Monocytes % 6.9, Eosinophils % 2.8, Basophils % 0.5, Absolute Granulocytes 5.5, Absolute Lymphocytes 1.6, Absolute Monocytes 0.5, Absolute Eosinophils 0.2, Absolute Basophils 0 04/03/18 1624: Urine Color YEL, Urine Clarity CLEAR, Urine pH 6.0, Ur Specific [place] 1.015, Urine Protein TRACE H, Urine Ketones NEG, Urine Nitrite NEG, Urine Bilirubin NEG, Urine Urobilinogen 0.2, Ur Leukocyte Esterase SMALL H, Ur Microscopic SEDIMENT EXAMINED, Urine RBC 5-10 H, Ur Epithelial Cells FEW, Urine Bacteria MOD H, Urine Hemoglobin SMALL H, Urine Glucose NEG 04/03/18 1313: PT 23.3 H, INR 2.12 H, APTT 33 04/03/18 1300: Anion Gap 16, Estimated GFR 10 L, BUN/Creatinine Ratio 14.7, Glucose 215 H, Calcium 9.5, Magnesium 2.3, Total Bilirubin 0.7, AST 15, ALT 14, Alkaline Phosphatase 62, Troponin I 0.02, Wap-Q-Iraeuvwqszh Pept 5760 H, Total Protein 6.9, Albumin 3.5, Globulin 3.4, Albumin/Globulin Ratio 1.0 L, Free T4 1.72, Total T3 1.06, TSH &T3 &Free T4 Intrp 4.580 H, CBC w Diff NO MAN DIFF REQ, RBC 4.57, MCV 86.7, MCH 29.1, MCHC 33.5, RDW 15.1 H, MPV 8.9, Gran % 70.6, Lymphocytes % 20.3 L, Monocytes % 5.8, Eosinophils % 2.8, Basophils % 0.5, Absolute Granulocytes 4.7, Absolute Lymphocytes 1.3, Absolute Monocytes 0.4, Absolute Eosinophils 0.2, Absolute Basophils 0 Assessment/Plan Assessment/Plan Assessment: 1. Worsening SOB and edema consistent with acute on chronic HFpEF-slightly improved clinically with some diuresis 2. Acute on chronic renal insufficiency.-Creatinine slightly improved at 3.9 3. LE edema likely related to venous insufficiency, HFpEF, 4. Mild hypernatremia 5. Mildly elevated TSH 6. History of CAD, CABG, TAVR 7. PPM Recommendations: -Continue current medication regimen -Continue gentle diuresis with IV Lasix -Continue to monitor intakes, outputs, daily weights -Echocardiogram pending Continue telemetry? Yes
--- NOTE | 2018-04-05 13:31 | PN- Cardiology ---
Subjective Subjective: The patient appears to be doing somewhat better today. Objective Vital Signs and I&Os Vital Signs Date Time Temp Pulse Resp B/P B/P Pulse O2 O2 Flow FiO2 Mean Ox Delivery Rate 04/05 1051 78 102/60 04/05 0800 95 Nasal 2.0L Cannula 04/05 0649 97.8 78 18 100/60 100 Nasal 2.0L Cannula 04/04 2212 Nasal 2.0L Cannula 04/04 2200 97.6 70 18 118/60 97 Nasal Cannula 04/04 2047 78 118/60 04/04 1753 92 Nasal 2.0L Cannula 04/04 1432 97.5 59 18 110/64 95 Intake & Output 04/05 1600 04/05 0804/05 0000 04/04 1600 04/04 0800 04/04 0000 Intake Total 100 240 560 208 Output Total 400 300 250 300 500 Balance -300 -60 310 -92 -500 Intake, IV 160 208 Intake, Oral 100 240 400 Output, Urine 400 300 250 300 500 Patient 145 lb 142 lb Weight Weight Bed scale Bed scale Measurement Method Physical Exam: General Appearance Alert, Oriented X3, Cooperative, Mild Distress Skin No Rashes, No Breakdown HEENT Atraumatic; [place]; OTHERWISE NORMAL Cardiovascular Normal S1, Normal S2, distant heart sounds; 1-2/6 systolic murmur Lungs Bilateral rhonchi / crackles Abdomen Soft, No Tenderness Neurological Normal Speech Extremities 1-2+ bilateral edema with stasis changes. Current Medications: Current Medications Sig/Madisyn Start time Last Medication Dose Route Stop Time Status Admin Bumetanide 2 MG Q8 04/04 2200 AC 04/05 PO 0510 Calcitriol 0.25 MCG 04/04 0900 AC 04/04 PO 0753 Carvedilol 12.5 MG BID 04/03 2100 AC 04/05 PO 1051 Furosemide 80 MG 7:30 AM, & 4:30 PM 04/03 1630 DC 04/04 IV 04/04 1800 1622 Heparin Sodium/ 25,000 UNIT Q24H 04/03 1745 DC 04/03 Dextrose IV 2340 Dextrose/Water 500 ML Insulin Aspart 0 TIDAC 04/03 1700 AC 04/04 SC 1708 Nitroglycerin 0.5 GM Q6 04/04 1345 04/05 TOP 0510 Patient Medication 1 ED ONE ONE 04/[address] Teaching ED 04/04 1601 Potassium Chloride 40 MEQ ONCE ONE 04/04 1830 DC 04/04 PO 04/04 1831 1915 Warfarin Sodium 5 MG COUMADIN 04/05 1700 AC PO 04/05 170 Warfarin Sodium 5 MG COUMADIN 04/04 170 DC 04/04 PO 04/04 2359 1622 Results Last 48 Hrs of Labs/Mics: Laboratory Tests 04/05/18 0635: Anion Gap 14, Estimated GFR 10 L, BUN/Creatinine Ratio 15.2, PT 20.7 H, INR 1.89 H, CBC w Diff NO MAN DIFF REQ, RBC 4.23, MCV 85.9, MCH 29.2, MCHC 34.0, RDW 15.1 H, MPV 9.7, Gran % 64.0, Lymphocytes % 24.5, Monocytes % 7.5, Eosinophils % 3.5, Basophils % 0.5, Absolute Granulocytes 4.2, Absolute Lymphocytes 1.6, Absolute Monocytes 0.5, Absolute Eosinophils 0.2, Absolute Basophils 0 04/04/18 1600: APTT Cancelled 04/04/18 0632: Anion Gap 15, Estimated GFR 11 L, BUN/Creatinine Ratio 16.7, Phosphorus 6.1 H, Magnesium 2.2, PT 25.2 H, INR 2.29 H, APTT > 120 *H, CBC w Diff NO MAN DIFF REQ, RBC 4.24, MCV 86.4, MCH 29.0, MCHC 33.6, RDW 15.1 H, MPV 10.1, Gran % 69.4 , Lymphocytes % 20.4 L, Monocytes % 6.9, Eosinophils % 2.8, Basophils % 0.5, Absolute Granulocytes 5.5, Absolute Lymphocytes 1.6, Absolute Monocytes 0.5, Absolute Eosinophils 0.2, Absolute Basophils 0 04/03/18 1624: Urine Color YEL, Urine Clarity CLEAR, Urine pH 6.0, Ur Specific [place] 1.015, Urine Protein TRACE H, Urine Ketones NEG, Urine Nitrite NEG, Urine Bilirubin NEG, Urine Urobilinogen 0.2, Ur Leukocyte Esterase SMALL H, Ur Microscopic SEDIMENT EXAMINED, Urine RBC 5-10 H, Ur Epithelial Cells FEW, Urine Bacteria MOD H, Urine Hemoglobin SMALL H, Urine Glucose NEG Assessment/Plan Assessment/Plan Assessment: 1. Worsening SOB and edema consistent with acute on chronic HFpEF-slightly improved clinically with some diuresis 2. Acute on chronic renal insufficiency.-Creatinine slightly improved at 3.9 3. LE edema likely related to venous insufficiency, HFpEF, 4. Mild hypernatremia 5. Mildly elevated TSH 6. History of CAD, CABG, TAVR 7. PPM Recommendations: -Continue current medication regimen -Oral diuretics on hold due to worsening renal function -Continue to monitor intakes, outputs, daily weights -Echocardiogram noted -Out of bed as tolerated -In spite of the fact that the patient is somewhat better clinically, she has not had a dramatic diuresis. Await further nephrology input prior to any further decisions about medication changes. Continue telemetry? Yes
[2018-04-05 14:14] VITALS: BP 90/60
[2018-04-05 22:36] VITALS: BP 114/70
[2018-04-06 06:33] VITALS: BP 110/80
[2018-04-06 07:54] LABS: ABSOLUTE BASOPHIL COUNT 0 /CUMM (0.0-0.2); ABSOLUTE EOSINOPHIL COUNT 0.3 /CUMM (0.0-0.7); ABSOLUTE GRANULOCYTE CT 4.3 /CUMM (1.4-6.5); ABSOLUTE LYMPH COUNT 1.9 /CUMM (1.2-3.4); ABSOLUTE MONOCYTE COUNT 0.5 /CUMM (0.10-0.60); BASOPHIL % 0.6 % (0.0-2.0); EOSINOPHIL % 3.7 % (0-5); GRANULOCYTE % 60.6 % (42.2-75.2); HEMATOCRIT 35.5 % (37-47); MEAN CORPUSCULAR HGB 29.1 PG (27.0-31.0); MEAN CORPUSCULAR HGB CONC 33.4 G/DL (33.0-37.0); MEAN PLATELET VOLUME 9.8 FL (7.4-10.4); PLATELET COUNT 119 /CUMM (130-400); RBC DISTRIBUTION WIDTH 14.8 % (11.5-14.5); RED BLOOD CELL CT 4.08 /CUMM (4.20-5.40); WHITE BLOOD CELL COUNT 7.1 /CUMM (4.8-10.8)
[2018-04-06 08:16] LABS: PT 24.9 SEC (9.4-12.5)
--- NOTE | 2018-04-06 08:28 | PN- Housestaff ---
Chriss HUNT,Mihir 04/06/18 0827: Subjective Follow-up For: CHF exacerbation Complaints: no complaints Tele-Events Since Last Visit: Miguel Angel bray, single pacing, heart rate 66-90, with some PVCs overnight. Subjective: I followed up and examined the patient today. She does not offer any complaints , and does not appear to be in any distress today. Review of Systems Constitutional: Reports: no symptoms. Objective Last 24 Hrs of Vital Signs/I&O Vital Signs Date Time Temp Pulse Resp B/P B/P Pulse O2 O2 Flow FiO2 Mean Ox Delivery Rate 04/06 0633 97.7 56 20 110/80 96 Nasal 2.0L Cannula 04/06 0000 Nasal 2.0L Cannula 04/05 2236 97.8 80 18 114/70 100 Nasal 2.0L Cannula 04/05 2014 83 116/70 04/05 1600 Nasal 2.0L Cannula 04/05 1414 97.9 90 20 90/60 98 Nasal Cannula 04/05 1051 78 102/60 Intake & Output 04/06 1600 04/06 0800 04/06 0000 Intake Total 440 450 Output Total 350 200 Balance 90 250 Intake, Oral 440 450 Number 1 Bowel Movements Output, Urine 350 200 Patient 63.985 kg Weight Weight Bed scale Measurement Method Physical Exam General Appearance: Alert, Oriented X3, Cooperative, No Acute Distress, on 2L/ min O2 via NC Other Physical Findings: Skin: No Rashes, No Breakdown Skin Temp/Moisture Exam: Warm/Dry Sepsis Skin Exam (color): Normal for Ethnicity HEENT: Atraumatic Cardiovascular: Normal S1, Normal S2, No Murmurs Lungs: Normal Air Movement, inspiratory crackles from mid-lower lobes bilaterally Abdomen: Soft, No Tenderness Neurological: Normal Speech Extremities: bilateral lower extremity edema Current Medications: Current Medications Sig/Madisyn Start time Last Medication Dose Route Stop Time Status Admin Bumetanide 2 MG Q8 04/04 2200 AC 04/06 PO 0700 Calcitriol 0.25 MCG 04/04 0900 AC 04/04 PO 075 Carvedilol 12.5 MG BID 04/03 2100 AC 04/05 PO 2013 Insulin Aspart 0 TIDAC 04/03 1700 AC 04/05 SC 1651 Nitroglycerin 0.5 GM Q6 04/04 1345 AC 04/06 TOP 0658 Warfarin Sodium 5 MG COUMADIN 1700 04/05 1700 DC / PO 04/05 1701 1652 Last 24 Hrs of Lab/Zachary Results Last 24 Hrs of Labs/Mics: Laboratory Tests 04/06/18 0625: Anion Gap 12, PT 24.9 H, INR 2.27 H, CBC w Diff NO MAN DIFF REQ, RBC 4.08 L, MCV 87.0, MCH 29.1, MCHC 33.4, RDW 14.8 H, MPV 9.8, Gran % 60.6, Lymphocytes % 27.4, Monocytes % 7.7, Eosinophils % 3.7, Basophils % 0.6, Absolute Granulocytes 4.3, Absolute Lymphocytes 1.9, Absolute Monocytes 0.5, Absolute Eosinophils 0.3, Absolute Basophils 0 Assessment/Plan Assessment: 87-year-old female past medical history of hypertension, A.fib on Warfarin, hyperlipidemia, CHF, TAVR and chronic kidney disease presented to the ED with complains of shortness of breath for the past week. Assessment: 1. Fluid Overload, CHF Exacerbation 2. KELSIE, Cr 4.7 (increase) 3. Prolonged QTc of 494 4. Elevated ProBNP 5. Thrombocytopenia 6. History of CKD Stage V 7. History of A.fib Plan: * Continue monitoring on telemetry for now. * Continue oxygen supplementation to maintain target oxygen sats > 92%. * Her dyspnea is better with diuresis but her KELSIE is worse now, so will stop her Bumex for now, and will follow up with nephro. * Continue Cano with Strict I's&Os, daily weights. * Her baseline Cr is around 3-4. Her Cr is 4.7 today which is worse. She also mentioned that the patient has expressed her wishes clearly against dialysis. * Add nitropaste 0.5gm q6. If her blood pressure is able to tolerate can be increased to 1gm q6. * Echocardiogram - pending * Continue carvedilol * Monitor CBC for thrombocytopenia, now at 119. Could be due to the heparin which has now been discontinued * Holding oral hypoglycemics * Insulin SS with Accucheks. * Diet: Heart Healthy * DVT Prophylaxis: On Coumadin. Daily monitoring of INR. Today was 2.27- dosed 5 mg. * Code: DNR/DNI Problem List: 1. CHF exacerbation 2. KELSIE (acute kidney injury) Pain Ratin Pain Location: - Pain Goal: Pain 4 or less Pain Plan: prn Tomorrow's Labs & Rationales: BEP (KELSIE), CBC (low plt), INR Shala De Los Santos MD 04/06/18 0956: Attending MD Review Statement Attending Statement Attending MD Statement: examined this patient, discuss w/resident/PA/FOUR CORNER STAYER MACHINE OPERATOR, agreed w/resident/PA/FOUR CORNER STAYER MACHINE OPERATOR, reviewed EMR data (avail), discussed with nursing, reviewed images Attending Assessment/Plan: Patient feels about the same. She is on 2 L of oxygen with a sat of 94% and her blood pressure and heart rate is stable. However I am concerned that her BUN and creatinine on the Bumex 2 mg 3 times a day has gone up to 80 and 4.7. At this point I don't think she is stable for discharge. She is adamantly opposed to dialysis and is explicit about that. I will stop the Bumex and will talk to nephrology about the appropriate dose of diuretic to prevent volume overload. Will follow the INR and dose the Coumadin
--- NOTE | 2018-04-06 10:02 | PN- Student ---
Luis Frank 04/06/18 1001: Subjective Subjective: Ruth Garcia is a 76 YOF with a history of HTN, HLD, CHF, CKD5, DM, Gout, CABGx3, and Pacemaker placement who is on hospital day 4 for an acute exacerbation of her HF and kidney disease. This morning she feels fine as usual and wishes to go home. Objective Objective: Patient is resting comfortably this morning in NAD. She is alert and oriented speaking in full sentances. Her heart has a normal rate with an irregular rhythm. No MRG are appreciated. Her lungs have bilateral crackles from base to apex. There is also difuse wheezing. Overnight telemetry showed afib with normal rates. Her urine output has been apropriate. Leg edema is markedly reduced from when she was admitted. Intake & Output 04/06 0400 04/05 0400 04/04 0400 Intake Total 440 450 550 240 768 Output Total 350 200 850 300 550 500 Balance 90 250 -300 -60 218 -500 Intake, IV 368 Intake, Oral 440 450 550 240 400 Number 1 1 Bowel Movements Output, Urine 350 200 850 300 550 500 Patient 141 lb 145 lb 142 lb Weight Weight Bed scale Bed scale Bed scale Measurement Method Laboratory Tests 04/06/18 0625: Anion Gap 12, Estimated GFR 9 L, PT 24.9 H, INR 2.27 H, CBC w Diff NO MAN DIFF REQ, RBC 4.08 L, MCV 87.0, MCH 29.1, MCHC 33.4, RDW 14.8 H, MPV 9.8, Gran % 60.6, Lymphocytes % 27.4, Monocytes % 7.7, Eosinophils % 3.7, Basophils % 0.6, Absolute Granulocytes 4.3, Absolute Lymphocytes 1.9, Absolute Monocytes 0.5, Absolute Eosinophils 0.3, Absolute Basophils 0 Vital Signs Date Time Temp Pulse Resp B/P B/P Pulse O2 O2 Flow FiO2 Mean Ox Delivery Rate 04/06 0848 56 110/80 04/06 0800 94 Nasal 2.0L Cannula 04/06 0633 97.7 56 20 110/80 96 Nasal 2.0L Cannula 04/06 0000 Nasal 2.0L Cannula 04/056 97.8 80 18 114/70 100 Nasal 2.0L Cannula 04/05 2014 83 116/70 04/05 1600 Nasal 2.0L Cannula 04/05 1414 97.9 90 20 90/60 98 Nasal Cannula 04/05 1051 78 102/60 Assessment/Plan Assessment: 76 YOF with a history of HTN, HLD, CHF, CKD5, DM, Gout, CABGx3, and Pacemaker placement with acute decompensation of heart failure and acute on chronic kidney injury. Plan: Patient's situation is complex given the severity of her kidney disease and heart failure. Despite this, she looks relatively well. Considering that she has no interest in dialysis and wishes to go home, I think the most appropriate course of action is to optimize her home medications for fluid management and then discharge her.
[2018-04-06 14:15] VITALS: BP 120/58
[2018-04-06 22:13] VITALS: BP 98/60
[2018-04-07 06:53] VITALS: BP 102/58
--- NOTE | 2018-04-07 07:11 | PN- Housestaff ---
Jake HUNT,[facility] 04/07/18 0710: Subjective Follow-up For: Fluid Overload Tele-Events Since Last Visit: Miguel Angelkatarina with HR 67-84. No overnight events. Subjective: Patient was seen and examined at bedside. States her breathing is improved. Does not offer any complaints in particular. Inquires about going home. Does not wish to go to rehab. Review of Systems Constitutional: Reports: no symptoms. Objective Last 24 Hrs of Vital Signs/I&O Vital Signs Date Time Temp Pulse Resp B/P B/P Pulse O2 O2 Flow FiO2 Mean Ox Delivery Rate 04/07 0653 97.6 80 20 102/58 96 Nasal Cannula 04/07 0000 Nasal 2.0L Cannula 04/06 2213 97.8 82 20 98/60 100 Nasal 2.0L Cannula 04/06 2145 69 98/60 04/06 1600 Nasal 2.0L Cannula 04/06 1415 97.2 81 20 120/58 92 Nasal Cannula 04/06 0848 56 110/80 06 0800 94 Nasal 2.0L Cannula Intake & Output 04/07 0800 / 0000 04/06 1600 Intake Total 100 350 480 Output Total 550 400 375 Balance -450 -50 105 Intake, Oral 100 350 480 Output, Urine 550 400 375 Patient 142 lb Weight Weight Bed scale Measurement Method Physical Exam General Appearance: Alert, Oriented X3, Cooperative, Mild Distress Skin: No Rashes, No Breakdown Skin Temp/Moisture Exam: Warm/Dry Sepsis Skin Exam (color): Normal for Ethnicity HEENT: Atraumatic Neck: JVD Cardiovascular: Normal S1, Normal S2, No Murmurs Lungs: crackles from mid-lower lung, decreased air entry at apex Abdomen: Soft, No Tenderness Neurological: Normal Speech Extremities: b/l lower extremity up to her shins Last 24 Hrs of Lab/Zachary Results Last 24 Hrs of Labs/Mics: Laboratory Tests 04/07/18 0615: Anion Gap 14, Estimated GFR 9 L, BUN/Creatinine Ratio 17.9, PT 28.1 H, INR 2.55 H, CBC w Diff NO MAN DIFF REQ, RBC 3.81 L, MCV 86.3, MCH 28.8, MCHC 33.4, RDW 14.4, MPV 9.9, Gran % 63.9, Lymphocytes % 23.4, Monocytes % 8.5, Eosinophils % 3.7, Basophils % 0.5, Absolute Granulocytes 4.5, Absolute Lymphocytes 1.7, Absolute Monocytes 0.6, Absolute Eosinophils 0.3, Absolute Basophils 0 Assessment/Plan Assessment: 87-year-old female past medical history of hypertension, A.fib on Warfarin, hyperlipidemia, CHF, TAVR and chronic kidney disease presented to the ED with complains of shortness of breath for the past week. Assessment: 1. Fluid Overload 2. Acute on chronic HFpEF 3. Prolonged QTc of 494 4. Elevated ProBNP 5. Thrombocytopenia 6. History of CKD Stage V 7. History of A.fib Plan: * Continue monitoring on telemetry. * Continue oxygen supplementation to maintain target oxygen sats > 92%. Currently on 2L. Will wean off as tolerated. * She is still dyspneic. Her diuretics were held over the weekend. * Diurese with IV Lasix 120mg x 1 today. If she diureses well, can give another dose of IV around 5pm. * Continue Cano with Strict I's&Os and daily weights. * Her baseline Cr is around 3-4. Per conversation with her extractions technologist, the patient followed up last month and her Cr was 4.3. Also mentioned that the patient has expressed her wishes clearly against dialysis. * Prognosis is poor without dialysis. The patient still explicitly expresses about no dialysis. * Will need goals of care discussion with family. * Hold NaHCO3 in the setting of fluid overload. * Nitropaste has been on hold due to low BP. * Echocardiogram - pending * Continue carvedilol. * Monitor CBC for thrombocytopenia. * Insulin SS with Accucheks. * Diet: Regular with 1L fluid restriction * DVT Prophylaxis: On Coumadin. Daily monitoring of INR * Code: DNR/DNI Problem List: 1. CKD (chronic kidney disease) Pain Ratin Pain Location: none Pain Goal: Remain pain free Pain Plan: none Tomorrow's Labs & Rationales: CBC, BEP, INR Camacho,Carmen 04/07/18 1201: Attending MD Review Statement Attending Statement Attending MD Statement: examined this patient, discuss w/resident/PA/FILM PROJECTOR OPERATOR, agreed w/resident/PA/FILM PROJECTOR OPERATOR, discussed with family, reviewed EMR data (avail), discussed with nursing, discussed with case mgmt, reviewed images, amended to note Attending Assessment/Plan: 87 o/f with progressive worsening of kidney disease and acute on chronic CHF exacerbation with overall slow improvement in clinical status is admitted to telemetry monitoring. She is on iv diureis which is increased today 120 mg iv bid in consultaiton with nephrology and cardiology. Arrange family meeting and palliative consult for goals of care. Patient/family decided not to opt for dialysis. Evalaute for hospice/comfort care.
[2018-04-07 08:08] LABS: ABSOLUTE BASOPHIL COUNT 0 /CUMM (0.0-0.2); ABSOLUTE EOSINOPHIL COUNT 0.3 /CUMM (0.0-0.7); ABSOLUTE GRANULOCYTE CT 4.5 /CUMM (1.4-6.5); ABSOLUTE LYMPH COUNT 1.7 /CUMM (1.2-3.4); ABSOLUTE MONOCYTE COUNT 0.6 /CUMM (0.10-0.60); BASOPHIL % 0.5 % (0.0-2.0); EOSINOPHIL % 3.7 % (0-5); GRANULOCYTE % 63.9 % (42.2-75.2); HEMATOCRIT 32.8 % (37-47); MEAN CORPUSCULAR HGB 28.8 PG (27.0-31.0); MEAN CORPUSCULAR HGB CONC 33.4 G/DL (33.0-37.0); MEAN CORPUSCULAR VOLUME 86.3 FL (81.0-99.0); MEAN PLATELET VOLUME 9.9 FL (7.4-10.4); PLATELET COUNT 114 /CUMM (130-400); RBC DISTRIBUTION WIDTH 14.4 % (11.5-14.5); RED BLOOD CELL CT 3.81 /CUMM (4.20-5.40); WHITE BLOOD CELL COUNT 7.1 /CUMM (4.8-10.8)
[2018-04-07 08:28] LABS: PT 28.1 SEC (9.4-12.5)
--- NOTE | 2018-04-07 10:07 | PN- Cardiology ---
Subjective Subjective: Feeling better. Shortness of breath improved. No chest pain. No palpitations. No diaphoresis. No nausea or vomiting. Objective Vital Signs and I&Os Vital Signs Date Time Temp Pulse Resp B/P B/P Pulse O2 O2 Flow FiO2 Mean Ox Delivery Rate 04/07 0802 76 104/60 04/07 0800 94 Nasal 2.0L Cannula 04/07 0653 97.6 80 20 102/58 96 Nasal Cannula 04/07 0000 Nasal 2.0L Cannula 04/06 2213 97.8 82 20 98/60 100 Nasal 2.0L Cannula 04/06 2145 69 98/60 04/06 1600 Nasal 2.0L Cannula 04/06 1415 97.2 81 20 120/58 92 Nasal Cannula Intake & Output 04/07 0804/07 0000 04/06 1600 04/06 0800 04/06 0000 Intake Total 100 350 480 440 450 Output Total 550 400 375 350 200 Balance -450 -50 105 90 250 Intake, Oral 100 350 480 440 450 Number 1 Bowel Movements Output, Urine 550 400 375 350 200 Patient 142 lb 141 lb Weight Weight Bed scale Bed scale Measurement Method Physical Exam: Gen: NAD HEENT: normal Lungs: clear to auscultation, normal resp. effort Heart: RRR, S1, S2, 1 out of 6 systolic murmur Abdomen: Soft, nontender, no masses Extremities: 1+ peripheral edema Neuro: Alert and oriented x 3, cranial nerves intact Current Medications: Current Medications Sig/Madisyn Start time Last Medication Dose Route Stop Time Status Admin Calcitriol 0.25 MCG 04/04 0900 AC 04/07 PO 0802 Carvedilol 12.5 MG BID 04/03 2100 AC 04/07 PO 0802 Insulin Aspart 0 TIDAC 04/03 1700 AC 04/06 SC 1707 Nitroglycerin 0.5 GM Q6 04/04 1345 AC 04/06 TOP 1708 Warfarin Sodium 5 MG COUMADIN 1700 04/06 1700 DC 04/06 PO 04/06 1702 1708 Results Last 48 Hrs of Labs/Mics: Laboratory Tests 04/07/1815: Anion Gap 14, Estimated GFR 9 L, BUN/Creatinine Ratio 17.9, PT 28.1 H, INR 2.55 H, CBC w Diff NO MAN DIFF REQ, RBC 3.81 L, MCV 86.3, MCH 28.8, MCHC 33.4, RDW 14.4, MPV 9.9, Gran % 63.9, Lymphocytes % 23.4, Monocytes % 8.5, Eosinophils % 3.7, Basophils % 0.5, Absolute Granulocytes 4.5, Absolute Lymphocytes 1.7, Absolute Monocytes 0.6, Absolute Eosinophils 0.3, Absolute Basophils 0 04/06/18 0625: Anion Gap 12, Estimated GFR 9 L, PT 24.9 H, INR 2.27 H, CBC w Diff NO MAN DIFF REQ, RBC 4.08 L, MCV 87.0, MCH 29.1, MCHC 33.4, RDW 14.8 H, MPV 9.8, Gran % 60.6, Lymphocytes % 27.4, Monocytes % 7.7, Eosinophils % 3.7, Basophils % 0.6, Absolute Granulocytes 4.3, Absolute Lymphocytes 1.9, Absolute Monocytes 0.5, Absolute Eosinophils 0.3, Absolute Basophils 0 Assessment/Plan Assessment/Plan Assessment: 1. Acute on chronic HFpEF, improved with diuresis 2. Acute on chronic kidney disease 3. CAD, status post CABG 4. Status post TAVR 5. Permanent pacemaker 6. Atrial fibrillation Plan: * Off diuretics for now given acute kidney injury. Would discuss with nephrology whether bumetanide can be restarted * Continue carvedilol * Dose warfarin for INR 2-3 Continue telemetry? Yes
--- NOTE | 2018-04-07 11:09 | PN- Nephrology ---
Assessment/Plan Nephrology Assessment: CKD stage 5, non-proteinuric: suspect due to HTN, age, chronic cardiorenal factors. Creat is slightly higher than baseline, however from a volume standpoint she remains fluid overloaded. Dialysis would be warranted given severe renal failure with refractory volume overload; however patient clearly states that she would never wants dialysis. Without dialysis it is going to be extremely difficult to keep her out of heart failure & she will be a high readmission risk in the next weeks. I would have palliative care evalaute her to discuss the possiblity of hospice. CHF: Remains fluid overloaded. Weight has not decreased since admit and she still has edema/crackles and is visibly dyspnic. Would resume IV lasix, at higher dose of 120 mg IV BID (she did not diurese well with 80 mg IV BID). She did not tolerate metolazone in recent past, although may need to consider trying again if does not diurese with higher dose of IV lasix. Suggestion: Lasix 120 mg IV x1 now consider 2nd dose later today around 5 PM if BP ok palliative care consult; consider discussion re hospice patient declined dialysis & dialysis would be indicated in this setting otherwise 1L/day fluid restriction d/w housestaff. Celestine Wilkins MD Subjective Subjective: no acute events continues to be visibly dyspnic weight has not decreased since admit asks about going home Review of Systems: no fever/chills Objective Vital Signs and I&Os Vital Signs Date Time Temp Pulse Resp B/P B/P Pulse O2 O2 Flow FiO2 Mean Ox Delivery Rate 04/07 0802 76 104/60 / 0800 94 Nasal 2.0L Cannula 04/07 0653 97.6 80 20 102/58 96 Nasal Cannula / 0000 Nasal 2.0L Cannula 04/06 2213 97.8 82 20 98/60 100 Nasal 2.0L Cannula / 2145 69 98/60 06/03 1600 Nasal 2.0L Cannula / 1415 97.2 81 20 120/58 92 Nasal Cannula Intake & Output 06/ 1600 06/04 0400 06/03 1600 06/ 0400 06/ 1600 06/ 0400 Intake Total 100 350 920 450 550 240 Output Total 550 400 725 200 850 300 Balance -450 -50 195 250 -300 -60 Intake, Oral 100 350 920 450 550 240 Number 1 1 Bowel Movements Output, Urine 550 400 725 200 850 300 Patient 142 lb 141 lb 145 lb Weight Weight Bed scale Bed scale Bed scale Measurement Method Physical Exam: GEN: Frail, dypsnic neck: +JVD ext: 2+ edema lungs: +crackles rt base abd: soft NT cv: s1 s2 neuro: no asterixis Current Medications: Current Medications Sig/Madisyn Start time Last Medication Dose Route Stop Time Status Admin Calcitriol 0.25 MCG 04/04 0900 AC 04/07 PO 0802 Carvedilol 12.5 MG BID 04/03 2100 AC 04/07 PO 0802 Furosemide 120 MG ONCE ONE 04/07 1100 DC IV 04/07 1101 Insulin Aspart 0 TIDAC 04/03 1700 AC 04/06 SC 1707 Nitroglycerin 0.5 GM Q6 04/04 1345 AC 04/06 TOP 1708 Warfarin Sodium 5 MG COUMADIN 1700 04/06 1700 DC 04/06 PO 04/06 1702 1708 Results Pertinent Lab Results: Laboratory Tests 04/07 04/06 0615 0625 Chemistry Sodium (137 - 145 mmol/L) 140 138 Potassium (3.5 - 5.1 mmol/L) 3.8 4.1 Chloride (98 - 107 mmol/L) 98 98 Carbon Dioxide (22 - 30 mmol/L) 28 28 Anion Gap (5 - 16) 14 12 BUN (7 - 17 mg/dL) 84 H 80 H Creatinine (0.5 - 1.0 mg/dL) 4.7 H 4.7 H Estimated GFR (>60 ml/min) 9 L 9 L BUN/Creatinine Ratio (7 - 25 %) 17.9 Coagulation PT (9.4 - 12.5 SEC) 28.1 H 24.9 H INR (0.90 - 1.19) 2.55 H 2.27 H Hematology CBC w Diff NO MAN DIFF REQ NO MAN DIFF REQ WBC (4.8 - 10.8 /CUMM) 7.1 7.1 RBC (4.20 - 5.40 /CUMM) 3.81 L 4.08 L Hgb (12.0 - 16.0 G/DL) 11.0 L 11.9 L Hct (37 - 47 %) 32.8 L 35.5 L MCV (81.0 - 99.0 FL) 86.3 87.0 MCH (27.0 - 31.0 PG) 28.8 29.1 MCHC (33.0 - 37.0 G/DL) 33.4 33.4 RDW (11.5 - 14.5 %) 14.4 14.8 H Plt Count (130 - 400 /CUMM) 114 L 119 L MPV (7.4 - 10.4 FL) 9.9 9.8 Gran % (42.2 - 75.2 %) 63.9 60.6 Lymphocytes % (20.5 - 51.1 %) 23.4 27.4 Monocytes % (1.7 - 9.3 %) 8.5 7.7 Eosinophils % (0 - 5 %) 3.7 3.7 Basophils % (0.0 - 2.0 %) 0.5 0.6 Absolute Granulocytes (1.4 - 6.5 /CUMM) 4.5 4.3 Absolute Lymphocytes (1.2 - 3.4 /CUMM) 1.7 1.9 Absolute Monocytes (0.10 - 0.60 /CUMM) 0.6 0.5 Absolute Eosinophils (0.0 - 0.7 /CUMM) 0.3 0.3 Absolute Basophils (0.0 - 0.2 /CUMM) 0 0 06/02 06/01 0635 1600 Chemistry Sodium (137 - 145 mmol/L) 143 Potassium (3.5 - 5.1 mmol/L) 4.4 Chloride (98 - 107 mmol/L) 101 Carbon Dioxide (22 - 30 mmol/L) 28 Anion Gap (5 - 16) 14 BUN (7 - 17 mg/dL) 67 H Creatinine (0.5 - 1.0 mg/dL) 4.4 H Estimated GFR (>60 ml/min) 10 L BUN/Creatinine Ratio (7 - 25 %) 15.2 Coagulation PT (9.4 - 12.5 SEC) 20.7 H INR (0.90 - 1.19) 1.89 H APTT Cancelled Hematology CBC w Diff NO MAN DIFF REQ WBC (4.8 - 10.8 /CUMM) 6.6 RBC (4.20 - 5.40 /CUMM) 4.23 Hgb (12.0 - 16.0 G/DL) 12.4 Hct (37 - 47 %) 36.3 L MCV (81.0 - 99.0 FL) 85.9 MCH (27.0 - 31.0 PG) 29.2 MCHC (33.0 - 37.0 G/DL) 34.0 RDW (11.5 - 14.5 %) 15.1 H Plt Count (130 - 400 /CUMM) 113 L MPV (7.4 - 10.4 FL) 9.7 Gran % (42.2 - 75.2 %) 64.0 Lymphocytes % (20.5 - 51.1 %) 24.5 Monocytes % (1.7 - 9.3 %) 7.5 Eosinophils % (0 - 5 %) 3.5 Basophils % (0.0 - 2.0 %) 0.5 Absolute Granulocytes (1.4 - 6.5 /CUMM) 4.2 Absolute Lymphocytes (1.2 - 3.4 /CUMM) 1.6 Absolute Monocytes (0.10 - 0.60 /CUMM) 0.5 Absolute Eosinophils (0.0 - 0.7 /CUMM) 0.2 Absolute Basophils (0.0 - 0.2 /CUMM) 0
--- NOTE | 2018-04-07 13:50 | PN- Student ---
Subjective Subjective: Ruth Garcia is a 87 YOF admitted for acute on chronic CHF and ESRD. This morning she has no complaints as usual, and wishes to go home. She is decidedly against dialysis, and her daughter agrees with this. Objective Objective: Her fluid status is moderately improved today, with slightly less leg edema going up to her knees, and lung crackles that only go 2/[address]. Concerningly, her creatinine has trended upwards, and now is at 4.7 - which may actually be her baseline acording to old nephrology notes. Laboratory Tests 04/07/18614: Anion Gap 14, Estimated GFR 9 L, BUN/Creatinine Ratio 17.9, PT 28.1 H, INR 2.55 H, CBC w Diff NO MAN DIFF REQ, RBC 3.81 L, MCV 86.3, MCH 28.8, MCHC 33.4, RDW 14.4, MPV 9.9, Gran % 63.9, Lymphocytes % 23.4, Monocytes % 8.5, Eosinophils % 3.7, Basophils % 0.5, Absolute Granulocytes 4.5, Absolute Lymphocytes 1.7, Absolute Monocytes 0.6, Absolute Eosinophils 0.3, Absolute Basophils 0 Vital Signs Date Time Temp Pulse Resp B/P B/P Pulse O2 O2 Flow FiO2 Mean Ox Delivery Rate 04/07 0802 76 104/60 / 0800 94 Nasal 2.0L Cannula 04/07 0653 97.6 80 20 102/58 96 Nasal Cannula / 0000 Nasal 2.0L Cannula 04/06 2213 97.8 82 20 98/60 100 Nasal 2.0L Cannula 04/06 2145 69 98/60 / 1600 Nasal 2.0L Cannula 04/06 1415 97.2 81 20 120/58 92 Nasal Cannula Intake & Output 04/07 1600 /04 0800 06/04 0000 Intake Total 100 350 Output Total 550 400 Balance -450 -50 Intake, Oral 100 350 Output, Urine 550 400 Patient 142 lb Weight Weight Bed scale Measurement Method Assessment/Plan Assessment: 87 YOF with HTN, HLD, CHF, CKD5, DM, Gout, CABGx3 and pacemaker admitted for acute on chronic CHF and ESRD. Plan - Optimize meds, wean from O2, and discharge home.
[2018-04-07 15:29] VITALS: BP 110/56
[2018-04-07 22:00] VITALS: BP 98/60
[2018-04-08 06:58] VITALS: BP 110/60
[2018-04-08 07:52] LABS: ABSOLUTE BASOPHIL COUNT 0 /CUMM (0.0-0.2); ABSOLUTE EOSINOPHIL COUNT 0.2 /CUMM (0.0-0.7); ABSOLUTE GRANULOCYTE CT 5.1 /CUMM (1.4-6.5); ABSOLUTE LYMPH COUNT 1.7 /CUMM (1.2-3.4); ABSOLUTE MONOCYTE COUNT 0.4 /CUMM (0.10-0.60); BASOPHIL % 0.5 % (0.0-2.0); EOSINOPHIL % 3.1 % (0-5); GRANULOCYTE % 67.8 % (42.2-75.2); HEMATOCRIT 31.3 % (37-47); MEAN CORPUSCULAR HGB 28.8 PG (27.0-31.0); MEAN CORPUSCULAR HGB CONC 33.7 G/DL (33.0-37.0); MEAN CORPUSCULAR VOLUME 85.4 FL (81.0-99.0); PLATELET COUNT 111 /CUMM (130-400); RED BLOOD CELL CT 3.66 /CUMM (4.20-5.40); WHITE BLOOD CELL COUNT 7.6 /CUMM (4.8-10.8)
[2018-04-08 08:16] LABS: PT 38.9 SEC (9.4-12.5)
--- NOTE | 2018-04-08 08:41 | PN- Housestaff ---
Rhona HUNT,Cynthia 04/08/18 0841: Subjective Follow-up For: 1. Fluid Overload 2. Acute on chronic HFpEF 3. Prolonged QTc of 494 4. Elevated ProBNP 5. Thrombocytopenia 6. History of CKD Stage V 7. History of A.katarina Tele-Events Since Last Visit: Miguel Angel bray, 72, [place] 0.14, PVCs/paced Subjective: Patient was seen and examined at bedside, short of breath, on 2 L nasal oxygen, were not able to be tapered off oxygen due to increased shortness of breath when moving. She expressed interest in home hospice. Still denying aggressive measures including dialysis. She diuresed around 700 cc yesterday Review of Systems Constitutional: Reports: see HPI. Cardiovascular: Reports: edema, orthopena, peripheral edema. Respiratory: Reports: cough, short of breath. Gastrointestinal: Denies: no symptoms. Genitourinary: Denies: no symptoms. Musculoskeletal: Denies: no symptoms. Skin: Denies: no symptoms. Objective Last 24 Hrs of Vital Signs/I&O Vital Signs Date Time Temp Pulse Resp B/P B/P Pulse O2 O2 Flow FiO2 Mean Ox Delivery Rate / 0820 84 112/60 06/05 0658 97.7 70 18 110/60 98 Nasal 2.0L Cannula / 2200 97.8 70 18 98/60 98 Nasal 2.0L Cannula / 2113 Nasal 2.0L Cannula /04 2100 70 98/60 06/04 1529 98.0 84 20 110/56 94 Intake & Output 06/05 1600 06/05 0800 06/05 0000 Intake Total 0 240 Output Total 700 400 Balance -700 -160 Intake, Oral 0 240 Output, Urine 700 400 Patient 143 lb Weight Weight Bed scale Measurement Method Physical Exam General Appearance: Alert, Oriented X3, Cooperative HEENT: Atraumatic, PERRLA, EOMI Neck: Supple, No JVD Cardiovascular: Normal S1, Normal S2 Lungs: bilateral crackles to the level of mid-lung Abdomen: Normal Bowel Sounds, Soft, No Tenderness Neurological: Normal Speech, Strength at 5/5 X4 Ext, Normal Tone, Sensation Intact Extremities: No Clubbing, No Cyanosis, 2 + bilateral pitting edema in both LE Assessment/Plan Assessment: 87-year-old female past medical history of hypertension, A.fib on Warfarin, hyperlipidemia, CHF, TAVR and chronic kidney disease presented to the ED with complains of shortness of breath for the past week. Assessment: 1. Fluid Overload 2. Acute on chronic HFpEF 3. Prolonged QTc of 494 4. Elevated ProBNP 5. Thrombocytopenia 6. History of CKD Stage V 7. History of A.fib Plan: * Continue monitoring on telemetry. * Continue oxygen supplementation to maintain target oxygen sats > 92%. Currently on 2L. Will wean off as tolerated. * She is still dyspneic widespread crackles heard on both lungs * The patient received Lasix 120 mg once yesterday and diuresed around 700 cc * Diurese with IV Lasix 120mg twice daily. On discharge she can be switched to bumetanide 3 mg p.o. twice daily * Continue Cano with Strict I's&Os and daily weights. * INR is 3.52, will continue to hold Coumadin today too * Her baseline Cr is around 3-4. Per conversation with her virtual assistant for advertisers, the patient followed up last month and her Cr was 4.3. Also mentioned that the patient has expressed her wishes clearly against dialysis. * Prognosis is poor without dialysis. The patient still explicitly refused dialysis. * Goals of care discussion with the family yesterday suggested that they are interested in home hospice * We will arrange for home hospice * Hold NaHCO3 in the setting of fluid overload. * Nitropaste has been on hold due to low BP. * Echocardiogram - pending * Continue carvedilol. * Monitor CBC for thrombocytopenia. Today's platelet is 111 could be possibly due to fluid overload since all the other RBCs and hematocrit are lower than yesterday * Insulin SS with Accucheks. * Diet: Regular with 1L fluid restriction * DVT Prophylaxis: On Coumadin. Daily monitoring of INR * Code: DNR/DNI Problem List: 1. CHF exacerbation 2. Diabetes mellitus Pain Ratin Pain Location: N/A Pain Goal: Remain pain free Pain Plan: [facility] Labs & Rationales: CBC FAUSTOP Carmen Sauer 04/08/18 1028: Attending MD Review Statement Attending Statement Attending MD Statement: examined this patient, discuss w/resident/PA/POEM WRITER, agreed w/resident/PA/POEM WRITER, discussed with family, reviewed EMR data (avail), discussed with nursing, discussed with case mgmt, reviewed images, amended to note Attending Assessment/Plan: 87 o/f with progressive worsening of kidney disease and acute on chronic CHF exacerbation with overall slow improvement in clinical status is admitted to telemetry monitoring. She is on iv diureis which is 120 mg iv bid in consultaiton with nephrology and cardiology. Had family meeting/discussion with daughter for goals of care. Patient/family decided not to opt for dialysis. [facility] for hospice/comfort care. Case management on board. Anticipating discharge to home hospice to preserve quality of life.
--- NOTE | 2018-04-08 10:21 | PN- Nephrology ---
Assessment/Plan Nephrology Assessment: CKD stage 5, non-proteinuric: suspect due to HTN, age, chronic cardiorenal factors. Dialysis would be warranted given severe renal failure with refractory volume overload; however patient clearly states that she would never wants dialysis. Without dialysis it is going to be extremely difficult to keep her out of heart failure & she will be a high readmission risk in the next weeks. Plan for palliative care f/up to further discuss hospice; pt expressed interest in home hospice. CHF: Remains fluid overloaded. Weight has not decreased since admit and she still has edema/crackles. Would continue lasix, at higher dose of 120 mg IV BID (she did not diurese well with 80 mg IV BID). She did not tolerate metolazone in recent past. Upon discharge Bumex 3 mg po bid would be considered, Suggestion: Lasix 120 mg IV BID for now (once home plan 3 mg PO BID bumex) Palliative care f/up; patient is interested in home hospice she is not stable for discharge currently unless going out on hospice Subjective Subjective: Seems less dyspnic today at rest on O2, but still with crackles on exam creatinine is stable able to get OOB to bathroom with assistance Review of Systems: denies chest pain voiding ok Objective Vital Signs and I&Os Vital Signs Date Time Temp Pulse Resp B/P B/P Pulse O2 O2 Flow FiO2 Mean Ox Delivery Rate 04/08 0820 84 112/60 06/05 0658 97.7 70 18 110/60 98 Nasal 2.0L Cannula / 2200 97.8 70 18 98/60 98 Nasal 2.0L Cannula 04/07 2113 Nasal 2.0L Cannula / 2100 70 98/60 06/04 1529 98.0 84 20 110/56 94 Intake & Output / 1600 06/05 0400 06/04 1600 06/04 0400 06/03 1600 06/03 0400 Intake Total 0 240 630 350 920 450 Output Total 787 304 2470 400 725 200 Balance -700 -160 -445 -50 195 250 Intake, IV 30 Intake, Oral 0 240 600 350 920 450 Number 1 Bowel Movements Output, Urine 752 621 1008 400 725 200 Patient 143 lb 142 lb 141 lb Weight Weight Bed scale Bed scale Bed scale Measurement Method Physical Exam: GEN: Frail, less dyspnic today neck: +JVD ext: 1+ edema lungs: +crackles at bases abd: soft NT cv: s1 s2 neuro: no asterixis Current Medications: Current Medications Sig/Madisyn Start time Last Medication Dose Route Stop Time Status Admin Calcitriol 0.25 MCG 04/04 0900 AC 04/07 PO 0802 Carvedilol 12.5 MG BID 04/03 2100 AC 04/08 PO 0820 Furosemide 120 MG ONCE ONE 04/07 1100 DC 04/07 IV 04/07 1101 1220 Insulin Aspart 0 TIDAC 04/03 1700 AC 04/07 SC 1707 Nitroglycerin 0.5 GM Q6 04/04 1345 AC 04/08 TOP 0613 Warfarin Sodium 5 MG COUMADIN 1700 ONE 04/07 1700 DC 04/07 PO 04/07 1701 1707 Results Pertinent Lab Results: Laboratory Tests 04/08 04/07 0620 0615 Chemistry Sodium (137 - 145 mmol/L) 140 140 Potassium (3.5 - 5.1 mmol/L) 3.8 3.8 Chloride (98 - 107 mmol/L) 99 98 Carbon Dioxide (22 - 30 mmol/L) 27 28 Anion Gap (5 - 16) 15 14 BUN (7 - 17 mg/dL) 86 H 84 H Creatinine (0.5 - 1.0 mg/dL) 4.3 H 4.7 H Estimated GFR (>60 ml/min) 10 L 9 L BUN/Creatinine Ratio (7 - 25 %) 20.0 17.9 Coagulation PT (9.4 - 12.5 SEC) 38.9 H 28.1 H INR (0.90 - 1.19) 3.52 H 2.55 H Hematology CBC w Diff NO MAN DIFF REQ NO MAN DIFF REQ WBC (4.8 - 10.8 /CUMM) 7.6 7.1 RBC (4.20 - 5.40 /CUMM) 3.66 L 3.81 L Hgb (12.0 - 16.0 G/DL) 10.5 L 11.0 L Hct (37 - 47 %) 31.3 L 32.8 L MCV (81.0 - 99.0 FL) 85.4 86.3 MCH (27.0 - 31.0 PG) 28.8 28.8 MCHC (33.0 - 37.0 G/DL) 33.7 33.4 RDW (11.5 - 14.5 %) 15.0 H 14.4 Plt Count (130 - 400 /CUMM) 111 L 114 L MPV (7.4 - 10.4 FL) 10.0 9.9 Gran % (42.2 - 75.2 %) 67.8 63.9 Lymphocytes % (20.5 - 51.1 %) 23.0 23.4 Monocytes % (1.7 - 9.3 %) 5.6 8.5 Eosinophils % (0 - 5 %) 3.1 3.7 Basophils % (0.0 - 2.0 %) 0.5 0.5 Absolute Granulocytes (1.4 - 6.5 /CUMM) 5.1 4.5 Absolute Lymphocytes (1.2 - 3.4 /CUMM) 1.7 1.7 Absolute Monocytes (0.10 - 0.60 /CUMM) 0.4 0.6 Absolute Eosinophils (0.0 - 0.7 /CUMM) 0.2 0.3 Absolute Basophils (0.0 - 0.2 /CUMM) 0 0 06/03 0625 Chemistry Sodium (137 - 145 mmol/L) 138 Potassium (3.5 - 5.1 mmol/L) 4.1 Chloride (98 - 107 mmol/L) 98 Carbon Dioxide (22 - 30 mmol/L) 28 Anion Gap (5 - 16) 12 BUN (7 - 17 mg/dL) 80 H Creatinine (0.5 - 1.0 mg/dL) 4.7 H Estimated GFR (>60 ml/min) 9 L Coagulation PT (9.4 - 12.5 SEC) 24.9 H INR (0.90 - 1.19) 2.27 H Hematology CBC w Diff NO MAN DIFF REQ WBC (4.8 - 10.8 /CUMM) 7.1 RBC (4.20 - 5.40 /CUMM) 4.08 L Hgb (12.0 - 16.0 G/DL) 11.9 L Hct (37 - 47 %) 35.5 L MCV (81.0 - 99.0 FL) 87.0 MCH (27.0 - 31.0 PG) 29.1 MCHC (33.0 - 37.0 G/DL) 33.4 RDW (11.5 - 14.5 %) 14.8 H Plt Count (130 - 400 /CUMM) 119 L MPV (7.4 - 10.4 FL) 9.8 Gran % (42.2 - 75.2 %) 60.6 Lymphocytes % (20.5 - 51.1 %) 27.4 Monocytes % (1.7 - 9.3 %) 7.7 Eosinophils % (0 - 5 %) 3.7 Basophils % (0.0 - 2.0 %) 0.6 Absolute Granulocytes (1.4 - 6.5 /CUMM) 4.3 Absolute Lymphocytes (1.2 - 3.4 /CUMM) 1.9 Absolute Monocytes (0.10 - 0.60 /CUMM) 0.5 Absolute Eosinophils (0.0 - 0.7 /CUMM) 0.3 Absolute Basophils (0.0 - 0.2 /CUMM) 0
--- NOTE | 2018-04-08 12:29 | PN- Cardiology ---
Subjective Subjective: Shortness of breath is stable. The patient continues to have significant edema. No chest pain. No palpitations. No diaphoresis. She has been started on 120 mg of Lasix twice a day Objective Vital Signs and I&Os Vital Signs Date Time Temp Pulse Resp B/P B/P Pulse O2 O2 Flow FiO2 Mean Ox Delivery Rate 04/08 820 84 112/60 04/08 0800 92 Nasal 2.0L Cannula 04/08 0658 97.7 70 18 110/60 98 Nasal 2.0L Cannula 04/07 2200 97.8 70 18 98/60 98 Nasal 2.0L Cannula 04/07 2113 Nasal 2.0L Cannula 04/07 2100 70 98/60 04/07 1529 98.0 84 20 110/56 94 Intake & Output 04/08 0804/08 0000 04/07 1600 04/07 0800 04/07 0000 Intake Total 0 240 530 100 350 Output Total 700 400 525 550 400 Balance -700 -160 5 -450 -50 Intake, IV 30 Intake, Oral 0 240 500 100 350 Output, Urine 700 400 525 550 400 Patient 143 lb 142 lb Weight Weight Bed scale Bed scale Measurement Method Physical Exam: Gen: NAD HEENT: normal Lungs: Bilateral rales, normal resp. effort Heart: RRR, S1, S2, 1/6 systolic murmur Abdomen: Soft, nontender, no masses Extremities: 1+ edema Neuro: Alert and oriented x 3, cranial nerves intact Current Medications: Current Medications Sig/Madisyn Start time Last Medication Dose Route Stop Time Status Admin Calcitriol 0.25 MCG 04/04 0900 AC 04/07 PO 0802 Carvedilol 12.5 MG BID 04/03 2100 AC 04/08 PO 0820 Furosemide 120 MG BID 04/08 1058 AC IV Insulin Aspart 0 TIDAC 04/03 1700 AC 04/07 SC 1707 Nitroglycerin 0.5 GM Q6 04/04 1345 AC 04/08 TOP 0613 Warfarin Sodium 5 MG COUMADIN 1700 ONE 04/07 1700 DC 04/07 PO 04/07 1701 1707 Results Last 48 Hrs of Labs/Mics: Laboratory Tests 04/08/18 0620: Anion Gap 15, Estimated GFR 10 L, BUN/Creatinine Ratio 20.0, PT 38.9 H, INR 3.52 H, CBC w Diff NO MAN DIFF REQ, RBC 3.66 L, MCV 85.4, MCH 28.8, MCHC 33.7, RDW 15.0 H, MPV 10.0, Gran % 67.8, Lymphocytes % 23.0, Monocytes % 5.6, Eosinophils % 3.1, Basophils % 0.5, Absolute Granulocytes 5.1, Absolute Lymphocytes 1.7, Absolute Monocytes 0.4, Absolute Eosinophils 0.2, Absolute Basophils 0 04/07/1815: Anion Gap 14, Estimated GFR 9 L, BUN/Creatinine Ratio 17.9, PT 28.1 H, INR 2.55 H, CBC w Diff NO MAN DIFF REQ, RBC 3.81 L, MCV 86.3, MCH 28.8, MCHC 33.4, RDW 14.4, MPV 9.9, Gran % 63.9, Lymphocytes % 23.4, Monocytes % 8.5, Eosinophils % 3.7, Basophils % 0.5, Absolute Granulocytes 4.5, Absolute Lymphocytes 1.7, Absolute Monocytes 0.6, Absolute Eosinophils 0.3, Absolute Basophils 0 Assessment/Plan Assessment/Plan Assessment: 1. Acute on chronic HFpEF, improved with diuresis 2. Acute on chronic kidney disease 3. CAD, status post CABG 4. Status post TAVR 5. Permanent pacemaker 6. Atrial fibrillation Plan: * Continue IV Lasix as per nephrology * Monitor input and output * Check basic metabolic profile daily * Continue carvedilol * Hold warfarin for elevated INR Continue telemetry? Yes
[2018-04-08 14:04] VITALS: BP 112/60
[2018-04-08 21:42] VITALS: BP 110/60
[2018-04-09 06:50] VITALS: BP 114/62
--- NOTE | 2018-04-09 07:29 | PN- Housestaff ---
Rhona HUNT,Cynthia 04/09/18 0728: Subjective Follow-up For: 1. Fluid Overload 2. Acute on chronic HFpEF 3. Prolonged QTc of 494 4. Elevated ProBNP 5. Thrombocytopenia 6. CKD Stage V 7. A.fib Tele-Events Since Last Visit: AChato fib, 72, [place] 0.14, PVCs/paced Subjective: Patient was seen and examined at bedside, she reports improvement of her breathing, still on 2 L nasal oxygen, her Lasix was increased to 70-120 twice daily however still have positive fluid balance of 440, this morning her blood pressure was running low 110/46, had to hold off morning dose of Lasix Review of Systems Constitutional: Denies: no symptoms. Cardiovascular: Reports: edema, orthopena. Denies: chest pain. Respiratory: Reports: short of breath. Denies: cough, hemoptysis. Gastrointestinal: Denies: no symptoms. Genitourinary: Denies: no symptoms. Musculoskeletal: Denies: no symptoms. Skin: Denies: no symptoms. Objective Last 24 Hrs of Vital Signs/I&O Vital Signs Date Time Temp Pulse Resp B/P B/P Pulse O2 O2 Flow FiO2 Mean Ox Delivery Rate 04/09 0650 97.7 66 18 114/62 97 Nasal Cannula / 0000 93 Nasal 2.0L Cannula 04/08 2157 107 110/60 06/05 2142 97.8 107 18 110/60 94 Nasal Cannula / 1404 97.9 72 18 112/60 94 Nasal 2.0L Cannula Intake & Output 04/09 1600 /06 0800 0606 0000 Intake Total 440 300 Output Total 450 Balance 440 -150 Intake, Oral 440 300 Output, Urine 450 Patient 144 lb Weight Physical Exam General Appearance: Alert, Oriented X3, Cooperative, No Acute Distress HEENT: Atraumatic, PERRLA, EOMI, Mucous Membr. moist/pink Neck: Supple, No JVD Cardiovascular: Normal S1, Normal S2 Lungs: bilateral widespread crepitation in both lungs Abdomen: Normal Bowel Sounds, Soft, No Tenderness Extremities: No Clubbing, No Cyanosis, 2 + pitting edema Assessment/Plan Assessment: 87-year-old female past medical history of hypertension, A.fib on Warfarin, hyperlipidemia, CHF, TAVR and chronic kidney disease presented to the ED with complains of shortness of breath for the past week. Assessment: 1. Fluid Overload 2. Acute on chronic HFpEF 3. Prolonged QTc of 494 4. Elevated ProBNP 5. Thrombocytopenia 6. History of CKD Stage V 7. History of A.fib Plan: * Continue monitoring on telemetry. * Continue oxygen supplementation to maintain target oxygen sats > 92%. Currently on 2L. Will wean off as tolerated. * She is still dyspneic widespread crackles heard on both lungs * DC Lasix ,pt BP was running low in the 100/50 this AM, Had to hold morning LAsix * Start bumetanide 3 mg p.o. twice daily * Continue Cano with Strict I's&Os and daily weights. * INR is 3.7, will continue to hold Coumadin today too * Her baseline Cr is around 3-4. Per conversation with her food packer, the patient followed up last month and her Cr was 4.3. Also mentioned that the patient has expressed her wishes clearly against dialysis. * Prognosis is poor without dialysis. The patient still explicitly refused dialysis. * Goals of care discussion with the family yesterday suggested that they are interested in home hospice, * Hospice consult was placed and after discussion with the family they decided to Dc her home and then think about their options including hospice later on * We will arrange for home hospice and home oxygen * Continue Nitropaste 0.5 g every 6 * Echocardiogram - pending * Continue carvedilol. * Monitor CBC for thrombocytopenia. Today's platelet is 122 could be possibly due to fluid overload since all the other RBCs and hematocrit are lower than yesterday * Insulin SS with Accucheks. * Diet: Regular with 1L fluid restriction * DVT Prophylaxis: On Coumadin. Daily monitoring of INR * Code: DNR/DNI Problem List: 1. CHF exacerbation 2. CKD (chronic kidney disease) stage 5, GFR less than 15 ml/min Pain Ratin Pain Location: N/A Pain Goal: Remain pain free Pain Plan: [facility] Labs & Rationales: CBC BEP INR CamachoCarmen rios 04/09/18 0941: Attending MD Review Statement Attending Statement Attending MD Statement: examined this patient, discuss w/resident/PA/WOOD GANG SAWYER, agreed w/resident/PA/WOOD GANG SAWYER, discussed with family, reviewed EMR data (avail), discussed with nursing, discussed with case mgmt, reviewed images, amended to note Attending Assessment/Plan: 87 o/f with progressive worsening of kidney disease and acute on chronic CHF exacerbation with overall slow improvement in clinical status is admitted to telemetry monitoring. She is on iv diureis which is 120 mg iv bid in consultaiton with nephrology and cardiology. Had family meeting/discussion with daughter for goals of care. Patient/family decided not to opt for dialysis. [facility] for hospice/comfort care. Consider Consult palliative care. Re-meeting with leonel today. Case management on board. Anticipating discharge to home hospice to preserve quality of life.
[2018-04-09 08:03] LABS: ABSOLUTE BASOPHIL COUNT 0 /CUMM (0.0-0.2); ABSOLUTE EOSINOPHIL COUNT 0.2 /CUMM (0.0-0.7); ABSOLUTE GRANULOCYTE CT 5.2 /CUMM (1.4-6.5); ABSOLUTE LYMPH COUNT 1.4 /CUMM (1.2-3.4); ABSOLUTE MONOCYTE COUNT 0.6 /CUMM (0.10-0.60); BASOPHIL % 0.5 % (0.0-2.0); EOSINOPHIL % 2.7 % (0-5); GRANULOCYTE % 70.4 % (42.2-75.2); MEAN CORPUSCULAR HGB CONC 33.8 G/DL (33.0-37.0); MEAN CORPUSCULAR VOLUME 85.8 FL (81.0-99.0); MEAN PLATELET VOLUME 9.7 FL (7.4-10.4); PLATELET COUNT 122 /CUMM (130-400); RBC DISTRIBUTION WIDTH 15.1 % (11.5-14.5); RED BLOOD CELL CT 3.73 /CUMM (4.20-5.40); WHITE BLOOD CELL COUNT 7.3 /CUMM (4.8-10.8)
[2018-04-09 08:17] LABS: PT 40.9 SEC (9.4-12.5)
[2018-04-09] MEDS ORDERED: BUMETANIDE1 M1 PO (08:31)
[2018-04-09] MEDS ORDERED: BUMETANIDE2 M1 PO (08:31)
[2018-04-09 09:45] VITALS: BP 110/46
--- NOTE | 2018-04-09 10:41 | PN- Nephrology ---
Assessment/Plan Nephrology Assessment: CKD stage 5, non-proteinuric: suspect due to HTN, age, chronic cardiorenal factors. Dialysis would be warranted given severe renal failure with refractory volume overload; however patient clearly states that she would never wants dialysis. Without dialysis it is going to be extremely difficult to keep her out of heart failure & she will be a high readmission risk in the next weeks. Plan for palliative care f/up to further discuss hospice; pt expressed interest in home hospice. CHF: Remains fluid overloaded. Weight has not decreased since admit and she still has edema/crackles. Would continue lasix at 120 mg IV BID (she did not diurese well with 80 mg IV BID). She did not tolerate metolazone in recent past. Upon discharge Bumex 3 mg po bid would be a dose to consider. Suggestion: Lasix 120 mg IV BID for now (once home plan 3 mg PO BID bumex) Palliative care f/up; patient is interested in home hospice she is currently not stable for discharge currently unless going out on hospice Subjective Subjective: Remains weak, mostly bedbound only net 620 cc on Lasix 120 iv bid Review of Systems: no chest pain, fever, dysuria Objective Vital Signs and I&Os Vital Signs Date Time Temp Pulse Resp B/P B/P Pulse O2 O2 Flow FiO2 Mean Ox Delivery Rate 04/09 0945 110/46 04/09 0650 97.7 66 18 114/62 97 Nasal Cannula 04/09 0000 93 Nasal 2.0L Cannula 04/08 2157 107 110/60 06/ 2142 97.8 107 18 110/60 94 Nasal Cannula 04/08 1404 97.9 72 18 112/60 94 Nasal 2.0L Cannula Intake & Output 04/09 1600 06 0400 06/ 1600 / 0400 04/07 1600 / 0400 Intake Total 440 300 630 240 630 350 Output Total 450 0944 275 7578 400 Balance 440 -150 -470 -160 -445 -50 Intake, IV 30 30 Intake, Oral 440 300 600 240 600 350 Output, Urine 450 1298 913 9511 400 Patient 144 lb 143 lb 142 lb Weight Weight Bed scale Bed scale Measurement Method Physical Exam: GEN: Frail, less dyspnic today neck: +JVD ext: 1+ edema lungs: +crackles at bases; a bit better today abd: soft NT cv: s1 s2 neuro: no asterixis Current Medications: Current Medications Sig/Madisyn Start time Last Medication Dose Route Stop Time Status Admin Calcitriol 0.25 MCG 04/04 0900 AC 04/09 PO 0941 Carvedilol 12.5 MG BID 04/03 2100 AC 04/08 PO 2157 Furosemide 120 MG BID 04/08 1058 AC 04/08 IV 2300 Insulin Aspart 0 TIDAC 04/03 1700 AC 04/08 SC 1225 Nitroglycerin 0.5 GM Q6 04/04 1345 AC 04/08 TOP 1802 Potassium Chloride 40 MEQ ONCE ONE 04/09 1100 AC PO 04/09 1101 Potassium Chloride 40 MEQ ONCE ONE 04/09 0830 DC 04/09 PO 04/09 0831 0941 Results Pertinent Lab Results: Laboratory Tests 04/09 04/08 0615 0620 Chemistry Sodium (137 - 145 mmol/L) 141 140 Potassium (3.5 - 5.1 mmol/L) 3.4 L 3.8 Chloride (98 - 107 mmol/L) 98 99 Carbon Dioxide (22 - 30 mmol/L) 28 27 Anion Gap (5 - 16) 15 15 BUN (7 - 17 mg/dL) 88 H 86 H Creatinine (0.5 - 1.0 mg/dL) 3.9 H 4.3 H Estimated GFR (>60 ml/min) 11 L 10 L BUN/Creatinine Ratio (7 - 25 %) 22.6 20.0 Magnesium (1.6 - 2.3 mg/dL) 2.3 Coagulation PT (9.4 - 12.5 SEC) 40.9 H 38.9 H INR (0.90 - 1.19) 3.70 H 3.52 H Hematology CBC w Diff NO MAN DIFF REQ NO MAN DIFF REQ WBC (4.8 - 10.8 /CUMM) 7.3 7.6 RBC (4.20 - 5.40 /CUMM) 3.73 L 3.66 L Hgb (12.0 - 16.0 G/DL) 10.8 L 10.5 L Hct (37 - 47 %) 32.0 L 31.3 L MCV (81.0 - 99.0 FL) 85.8 85.4 MCH (27.0 - 31.0 PG) 29.0 28.8 MCHC (33.0 - 37.0 G/DL) 33.8 33.7 RDW (11.5 - 14.5 %) 15.1 H 15.0 H Plt Count (130 - 400 /CUMM) 122 L 111 L MPV (7.4 - 10.4 FL) 9.7 10.0 Gran % (42.2 - 75.2 %) 70.4 67.8 Lymphocytes % (20.5 - 51.1 %) 18.6 L 23.0 Monocytes % (1.7 - 9.3 %) 7.8 5.6 Eosinophils % (0 - 5 %) 2.7 3.1 Basophils % (0.0 - 2.0 %) 0.5 0.5 Absolute Granulocytes (1.4 - 6.5 /CUMM) 5.2 5.1 Absolute Lymphocytes (1.2 - 3.4 /CUMM) 1.4 1.7 Absolute Monocytes (0.10 - 0.60 /CUMM) 0.6 0.4 Absolute Eosinophils (0.0 - 0.7 /CUMM) 0.2 0.2 Absolute Basophils (0.0 - 0.2 /CUMM) 0 0 06/04 0615 Chemistry Sodium (137 - 145 mmol/L) 140 Potassium (3.5 - 5.1 mmol/L) 3.8 Chloride (98 - 107 mmol/L) 98 Carbon Dioxide (22 - 30 mmol/L) 28 Anion Gap (5 - 16) 14 BUN (7 - 17 mg/dL) 84 H Creatinine (0.5 - 1.0 mg/dL) 4.7 H Estimated GFR (>60 ml/min) 9 L BUN/Creatinine Ratio (7 - 25 %) 17.9 Coagulation PT (9.4 - 12.5 SEC) 28.1 H INR (0.90 - 1.19) 2.55 H Hematology CBC w Diff NO MAN DIFF REQ WBC (4.8 - 10.8 /CUMM) 7.1 RBC (4.20 - 5.40 /CUMM) 3.81 L Hgb (12.0 - 16.0 G/DL) 11.0 L Hct (37 - 47 %) 32.8 L MCV (81.0 - 99.0 FL) 86.3 MCH (27.0 - 31.0 PG) 28.8 MCHC (33.0 - 37.0 G/DL) 33.4 RDW (11.5 - 14.5 %) 14.4 Plt Count (130 - 400 /CUMM) 114 L MPV (7.4 - 10.4 FL) 9.9 Gran % (42.2 - 75.2 %) 63.9 Lymphocytes % (20.5 - 51.1 %) 23.4 Monocytes % (1.7 - 9.3 %) 8.5 Eosinophils % (0 - 5 %) 3.7 Basophils % (0.0 - 2.0 %) 0.5 Absolute Granulocytes (1.4 - 6.5 /CUMM) 4.5 Absolute Lymphocytes (1.2 - 3.4 /CUMM) 1.7 Absolute Monocytes (0.10 - 0.60 /CUMM) 0.6 Absolute Eosinophils (0.0 - 0.7 /CUMM) 0.3 Absolute Basophils (0.0 - 0.2 /CUMM) 0
[2018-04-09 10:53] VITALS: BP 110/50
[2018-04-09 14:14] VITALS: BP 116/64
--- NOTE | 2018-04-09 19:42 | PN- Cardiology ---
Subjective Subjective: sstable without clinical change. Creatinine improved to 3.9 today Objective Vital Signs and I&Os Vital Signs Date Time Temp Pulse Resp B/P B/P Pulse O2 O2 Flow FiO2 Mean Ox Delivery Rate 04/09 1600 96 Nasal 1.5L Cannula 04/09 1414 97.9 71 20 116/64 96 Nasal 2.0L Cannula 04/09 1053 110/50 04/09 0945 110/46 04/09 0800 97 Nasal 2.0L Cannula 04/09 0650 97.7 66 18 114/62 97 Nasal Cannula 04/09 0000 93 Nasal 2.0L Cannula 04/08 2157 107 110/60 04/08 2142 97.8 107 18 110/60 94 Nasal Cannula Intake & Output 04/09 1600 04/09 0800 04/09 0000 04/08 1600 04/08 0800 04/08 0000 Intake Total 540 440 300 630 0 240 Output Total 300 450 400 700 400 Balance 240 440 -150 230 -700 -160 Intake, IV 30 Intake, Oral 540 440 300 600 0 240 Output, Urine 300 450 400 700 400 Patient 144 lb 143 lb Weight Weight Bed scale Measurement Method Physical Exam: General Appearance Alert, Oriented X3, Cooperative, Mild Distress Skin No Rashes, No Breakdown HEENT Atraumatic; [place]; OTHERWISE NORMAL Cardiovascular Normal S1, Normal S2, distant heart sounds; 1-2/6 systolic murmur Lungs Bilateral rhonchi / crackles Abdomen Soft, No Tenderness Neurological Normal Speech Extremities 1-2+ bilateral edema with stasis changes. Current Medications: Current Medications Sig/Madisyn Start time Last Medication Dose Route Stop Time Status Admin Bumetanide 3 MG BID 04/09 2100 AC PO Calcitriol 0.25 MCG 04/04 0900 AC 04/09 PO 0941 Carvedilol 6.25 MG BID 04/09 2100 AC PO Carvedilol 12.5 MG BID 04/03 2100 DC 04/08 PO 2157 Furosemide 120 MG BID 04/08 1058 DC 04/08 IV 2300 Insulin Aspart 0 TIDAC 04/03 1700 AC 04/09 SC 1648 Nitroglycerin 0.5 GM Q6 04/04 1345 DC 04/08 TOP 1802 Potassium Chloride 40 MEQ ONCE ONE 04/09 1100 DC 04/09 PO 04/09 1101 1441 Potassium Chloride 40 MEQ ONCE ONE 04/09 0830 DC 04/09 PO 04/09 0831 0941 Results Last 48 Hrs of Labs/Mics: Laboratory Tests 04/09/18 0615: Anion Gap 15, Estimated GFR 11 L, BUN/Creatinine Ratio 22.6, Magnesium 2.3, PT 40.9 H, INR 3.70 H, CBC w Diff NO MAN DIFF REQ, RBC 3.73 L, MCV 85.8, MCH 29.0, MCHC 33.8, RDW 15.1 H, MPV 9.7, Gran % 70.4, Lymphocytes % 18.6 L, Monocytes % 7.8, Eosinophils % 2.7, Basophils % 0.5, Absolute Granulocytes 5.2, Absolute Lymphocytes 1.4, Absolute Monocytes 0.6, Absolute Eosinophils 0.2, Absolute Basophils 0 04/08/18 0620: Anion Gap 15, Estimated GFR 10 L, BUN/Creatinine Ratio 20.0, PT 38.9 H, INR 3.52 H, CBC w Diff NO MAN DIFF REQ, RBC 3.66 L, MCV 85.4, MCH 28.8, MCHC 33.7, RDW 15.0 H, MPV 10.0, Gran % 67.8, Lymphocytes % 23.0, Monocytes % 5.6, Eosinophils % 3.1, Basophils % 0.5, Absolute Granulocytes 5.1, Absolute Lymphocytes 1.7, Absolute Monocytes 0.4, Absolute Eosinophils 0.2, Absolute Basophils 0 Assessment/Plan Assessment/Plan Assessment: 1. Acute on chronic HFpEF, improved with diuresis 2. Acute on chronic kidney disease 3. CAD, status post CABG 4. Status post TAVR 5. Permanent pacemaker 6. Atrial fibrillation Plan: -Continue IV Lasix as per nephrology; when transitioning to oral Lasix, dose to be adjusted and decided upon by nephrology -Monitor input and output -continue to check basic metabolic profile daily -Continue carvedilol -Hold warfarin for elevated INR;; subsequent INR adjustment to 2.0-3.0 -The patient will follow-up with me post discharge for further cardiology issues. Continue telemetry? Yes
[2018-04-09 22:47] VITALS: BP 112/70
[2018-04-10 05:53] VITALS: BP 128/62
--- NOTE | 2018-04-10 07:17 | PN- Housestaff ---
Rhona HUNT,Cynthia 04[birth year]10/18716: Subjective Follow-up For: 1. Fluid Overload 2. Acute on chronic HFpEF 3. Prolonged QTc of 494 4. Elevated ProBNP 5. Thrombocytopenia 6. CKD Stage V 7. A.fib Tele-Events Since Last Visit: No overnight events, A. fib, 77, OR 0.14, PVCs/paced Subjective: Patient was seen and examined at bedside, her diuretics were switched from Lasix to Bumex 3 mg twice daily, blood pressure is stable, fluid balance -660, saturating at 93 on 1/2 L oxygen, the patient and her family agreed to pursue home hospice Review of Systems Constitutional: Denies: no symptoms. Cardiovascular: Reports: edema. Respiratory: Reports: short of breath. Gastrointestinal: Denies: no symptoms. Genitourinary: Denies: no symptoms. Objective Last 24 Hrs of Vital Signs/I&O Vital Signs Date Time Temp Pulse Resp B/P B/P Pulse O2 O2 Flow FiO2 Mean Ox Delivery Rate 04/10 0905 79 128/62 04/10 0553 97.4 79 18 128/62 93 Nasal Cannula 04/10 0000 Nasal 1.5L Cannula 04/09 2247 97.5 88 18 112/70 95 Nasal 2.0L Cannula 04/09 2040 90 116/70 04/09 1600 96 Nasal 1.5L Cannula Intake & Output 04/10 1600 04/10 0800 04/10 0000 Intake Total 120 300 Output Total 700 200 Balance -580 100 Intake, Oral 120 300 Output, Urine 700 200 Patient 145 lb Weight Weight Bed scale Measurement Method Physical Exam General Appearance: Alert, Oriented X3, Cooperative, No Acute Distress HEENT: Atraumatic, PERRLA, EOMI, Mucous Membr. moist/pink Neck: Supple, No JVD Cardiovascular: Normal S1, Normal S2, No Murmurs Lungs: Clear to Auscultation Abdomen: Normal Bowel Sounds, Soft, No Tenderness Neurological: Normal Speech, Strength at 5/5 X4 Ext, Normal Tone, Sensation Intact Extremities: No Clubbing, No Cyanosis, 2 + pitting edema Vascular: Normal Pulses Assessment/Plan Assessment: 87-year-old female past medical history of hypertension, A.fib on Warfarin, hyperlipidemia, CHF, TAVR and chronic kidney disease presented to the ED with complains of shortness of breath for the past week. Assessment: 1. Fluid Overload 2. Acute on chronic HFpEF 3. Prolonged QTc of 494 4. Elevated ProBNP 5. Thrombocytopenia 6. History of CKD Stage V 7. History of A.fib Plan: * Continue monitoring on telemetry. * Continue oxygen supplementation to maintain target oxygen sats > 92%. Currently on 2L. Will wean off as tolerated. * She is still dyspneic widespread crackles heard on both lungs * Continue bumetanide 3 mg p.o. twice daily, patient was able to tolerate bumetanide well last night with stable blood pressure * Continue Cano with Strict I's&Os and daily weights. * INR is 3.7, will continue to hold Coumadin today too * Her baseline Cr is around 3-4. Per conversation with her adjunct sociology professor, the patient followed up last month and her Cr was 4.3. Also mentioned that the patient has expressed her wishes clearly against dialysis. * Prognosis is poor without dialysis. The patient still explicitly refused dialysis. * As per discussion between the patient, her family and the adjunct sociology professor they decided to go for home hospice given her guarded prognosis * We will arrange for home hospice and home oxygen * Continue Nitropaste 0.5 g every 6 * Continue carvedilol 6.25 twice daily * Monitor CBC for thrombocytopenia. Today's platelet is 122 could be possibly due to fluid overload since all the other RBCs and hematocrit are lower than yesterday * Insulin SS with Accucheks. * Diet: Regular with 1L fluid restriction * DVT Prophylaxis: On Coumadin. Daily monitoring of INR * Code: DNR/DNI Problem List: 1. CHF exacerbation 2. Diabetes mellitus Pain Ratin Pain Location: N/A Pain Goal: Remain pain free Pain Plan: [facility] Labs & Rationales: N/A Carmen Sauer 04/10/18 1044: Attending MD Review Statement Attending Statement Attending MD Statement: examined this patient, discuss w/resident/PA/THERAPEUTIC RECREATION LEADER, agreed w/resident/PA/THERAPEUTIC RECREATION LEADER, discussed with family, reviewed EMR data (avail), discussed with nursing, discussed with case mgmt, reviewed images, amended to note Attending Assessment/Plan: 87 o/f with progressive worsening of kidney disease and acute on chronic CHF exacerbation with overall slow improvement in clinical status is admitted to telemetry monitoring. She is on iv diureis which is 120 mg iv bid in consultaiton with nephrology and cardiology. Change to 3mg PO bumex bid as per nephrology/cardiolgoy Had family meeting/discussion with daughter for goals of care. Patient/family decided not to opt for dialysis. [facility] for hospice/comfort care. Re-meeting with leonel/patient declined hospice for now. Patient makes her decisions with her daughter. Anticipating discharge to home with home health services. She remans high risk of readmission, referral to palliative at discharge. She needs home oxygen at discharge around 1.5-2l. [facility]
[2018-04-10 08:00] LABS: ABSOLUTE BASOPHIL COUNT 0 /CUMM (0.0-0.2); ABSOLUTE EOSINOPHIL COUNT 0.2 /CUMM (0.0-0.7); ABSOLUTE GRANULOCYTE CT 6.1 /CUMM (1.4-6.5); ABSOLUTE LYMPH COUNT 1.4 /CUMM (1.2-3.4); ABSOLUTE MONOCYTE COUNT 0.6 /CUMM (0.10-0.60); BASOPHIL % 0.5 % (0.0-2.0); EOSINOPHIL % 2.5 % (0-5); GRANULOCYTE % 73.5 % (42.2-75.2); MEAN CORPUSCULAR HGB 28.9 PG (27.0-31.0); MEAN CORPUSCULAR HGB CONC 33.7 G/DL (33.0-37.0); MEAN CORPUSCULAR VOLUME 85.7 FL (81.0-99.0); MEAN PLATELET VOLUME 9.6 FL (7.4-10.4); PLATELET COUNT 133 /CUMM (130-400); RBC DISTRIBUTION WIDTH 15.1 % (11.5-14.5); RED BLOOD CELL CT 3.73 /CUMM (4.20-5.40); WHITE BLOOD CELL COUNT 8.4 /CUMM (4.8-10.8)
[2018-04-10 08:22] LABS: PT 34.2 SEC (9.4-12.5)
[2018-04-10 09:05] VITALS: BP 128/62
[2018-04-10] MEDS ORDERED: CARVEDILOL6.25 M1 PO ×2 (10:29→13:14)
[2018-04-10] MEDS ORDERED: COUMADIN4 M1 PO (11:09)
--- NOTE | 2018-04-10 11:30 | PN- Cardiology ---
Subjective Subjective: The patient is comfortable. Shortness of breath is stable. No chest pain. No palpitations. No diaphoresis. No nausea or vomiting. Objective Vital Signs and I&Os Vital Signs Date Time Temp Pulse Resp B/P B/P Pulse O2 O2 Flow FiO2 Mean Ox Delivery Rate 04/10 0905 79 128/62 04/10 0553 97.4 79 18 128/62 93 Nasal Cannula 04/10 0000 Nasal 1.5L Cannula 04/09 2247 97.5 88 18 112/70 95 Nasal 2.0L Cannula 04/09 2040 90 116/70 04/09 1600 96 Nasal 1.5L Cannula 04/09 1414 97.9 71 20 116/64 96 Nasal 2.0L Cannula Intake & Output 04/10 0800 04/10 0000 04/09 1600 04/09 0800 04/09 0000 Intake Total 120 300 540 440 300 Output Total 700 200 300 450 Balance -580 100 240 440 -150 Intake, Oral 120 300 540 440 300 Output, Urine 700 200 300 450 Patient 145 lb 144 lb Weight Weight Bed scale Measurement Method Physical Exam: Gen: NAD HEENT: normal Lungs: Bilateral rales, normal resp. effort Heart: RRR, S1, S2, 1/6 systolic murmur Abdomen: Soft, nontender, no masses Extremities: 1+ edema Neuro: Alert and oriented x 3, cranial nerves intact Current Medications: Current Medications Sig/Madisny Start time Last Medication Dose Route Stop Time Status Admin Bumetanide 3 MG BID 04/09 2100 AC 04/10 PO 0906 Calcitriol 0.25 MCG 04/04 0900 AC 04/09 PO 0941 Carvedilol 6.25 MG BID 04/09 2100 AC 04/10 PO 0905 Carvedilol 12.5 MG BID 04/03 2100 DC 04/08 PO 2157 Furosemide 120 MG BID 04/08 1058 DC 04/08 IV 2300 Insulin Aspart 0 TIDAC 04/03 1700 AC 04/10 SC 0815 Nitroglycerin 0.5 GM Q6 04/04 1345 DC 04/08 [facility] 1802 Results Last 48 Hrs of Labs/Mics: Laboratory Tests 04/10/18 0610: Anion Gap 14, Estimated GFR 11 L, BUN/Creatinine Ratio 21.5, PT 34.2 H, INR 3.10 H, CBC w Diff NO MAN DIFF REQ, RBC 3.73 L, MCV 85.7, MCH 28.9, MCHC 33.7, RDW 15.1 H, MPV 9.6, Gran % 73.5, Lymphocytes % 16.8 L, Monocytes % 6.7, Eosinophils % 2.5, Basophils % 0.5, Absolute Granulocytes 6.1, Absolute Lymphocytes 1.4, Absolute Monocytes 0.6, Absolute Eosinophils 0.2, Absolute Basophils 0 04/09/1815: Anion Gap 15, Estimated GFR 11 L, BUN/Creatinine Ratio 22.6, Magnesium 2.3, PT 40.9 H, INR 3.70 H, CBC w Diff NO MAN DIFF REQ, RBC 3.73 L, MCV 85.8, MCH 29.0, MCHC 33.8, RDW 15.1 H, MPV 9.7, Gran % 70.4, Lymphocytes % 18.6 L, Monocytes % 7.8, Eosinophils % 2.7, Basophils % 0.5, Absolute Granulocytes 5.2, Absolute Lymphocytes 1.4, Absolute Monocytes 0.6, Absolute Eosinophils 0.2, Absolute Basophils 0 Assessment/Plan Assessment/Plan Assessment: 1. Acute on chronic HFpEF, improved with diuresis 2. Acute on chronic kidney disease 3. CAD, status post CABG 4. Status post TAVR 5. Permanent pacemaker 6. Atrial fibrillation Plan: * Continue IV Lasix as per nephrology * Monitor input and output * Check basic metabolic profile daily * Dose warfarin for INR 2-3 Continue telemetry? Yes
--- NOTE | 2018-04-10 11:48 | Discharge Summary ---
Visit Information Visit Dates Admission Date: 04/03/18 Discharge Date: 04/10/18 Hospital Course Course Attending Physician: Carmen Sauer MD Primary Care Physician: Sav Freeman MD Hospital Course: 87-year-old female past medical history of hypertension, A.fib on Warfarin, hyperlipidemia, CHF, TAVR and chronic kidney disease presented to the ED with complains of shortness of breath along with a cough and headache for the past week. Her BNP was found 5700, CXR suggestive CHF, and she has lower extremity edema. She is definitely volume overloaded on physical exam given diffuse crackles on lung exam. She had CKD with creatinine of 4.3, last given printed creatinine was on 01/18 and was 3.2. It's not clear if this rise is a worsening of her baseline creatinine or KELSIE intop of CKD. Even though she has volume overload, she was found to have hypernatremia which most likely because of 650 sodium bicarbonate. #CHF exacerbation most likely caused by CKD. She was admitted to telemetry, she was initially started on IV Lasix 80 mg which was subsequently increased to 120 mg twice daily, her blood pressure was running towards the lower side, IV Lasix had to be discontinued and she was suspected to p.o. bumetanide 3 mg twice daily daily which is a patient tolerated. She requires 2 L nasal oxygen, trials to wean her off oxygen were unsuccessful. The patient and family decided to go for home hospice given her guarded prognosis and her wishes not to start renal dialysis. Her carvedilol dose was decreased to 6.25 since she was started on high-dose Bumex to prevent drop in blood pressure. #CKD * Not clear if this worsening CKD or KELSIE in top of CKD. Rubber Mill Tender was on board, patient refused to go for renal dialysis. She chose to go home with hospice services #Hypernatremia * Sodium was found to be 147, real Na may be even higher if corrected to mild hyperglycemia improved #NIDDM * oral antihyperglycemic medication were discontinued * Was treated with insulin sliding scale * Fingerstick * Diabetic diet #A.Fib with controlled rate * Carvedilol dose was increased to 6.25 * INR was consistently supratherapeutic, warfarin had to be held, on discharge her Coumadin was decreased to 4 mg daily, to follow-up with her PCP as outpatient -Diabetic diet -DVT PPX with ALPS and SC heparin -DNR/I Allergies: Coded Allergies: Sulfa (Sulfonamide Antibiotics) (RASH 01/17/16) Disposition Summary Disposition Principal Diagnosis: CHF exacerbation Additional Diagnosis: CKD stage V Discharge Disposition: hospice - home Discharge Instructions General Discharge Information Code Status: Do Not Resucitate/Intubat Patient's Diet: Consistent carbohydrate Patient's Activity: As tolerated Follow-Up Instructions/Appts: Please follow up with your PCP, insurance operations rep and support manager within one week of discharge. Please get your INR checked in 3 days and dose coumadin accordingly Medications at Discharge Discharge Medications: Stop taking the following medications: Carvedilol (Carvedilol) 12.5 MG TABLET ORAL TWICE DAILY Warfarin Sodium (Coumadin) 5 MG TABLET ORAL DAILY Qty = 30 Bumetanide (Bumetanide) 2 MG TABLET ORAL THREE TIMES DAILY Qty = 30 Continue taking these medications: Sitagliptin Phosphate (Januvia) 50 MG TABLET 1 Tablet ORAL DAILY Comments: NOT GIVEN IN HOSPTIAL Glimepiride (Amaryl) 2 MG TABLET 1 Tablet ORAL Every night Comments: NOT GIVEN IN HOSPITAL Glimepiride (Amaryl) 2 MG TABLET 2 Tablet ORAL Every Morning Qty = 30 Comments: NOT GIVEN IN HOSPTIAL Calcitriol (Rocaltrol) 0.25 MCG CAPSULE 1 Capsule ORAL SATURDAY, SATURDAY AND SATURDAY Comments: Last Taken: 04/09/18 Time: 9:30 AM Potassium Chloride (K-Tab ER) 20 MEQ TABLET.ER 1 Tablet ORAL TWICE DAILY Comments: Last Taken: 04/09/17 Time: 9:00 AM Cholecalciferol (Vitamin D3) (Vitamin D3) 2,000 UNIT TABLET 1 Tablet ORAL DAILY Comments: NOT GIVEN IN HOSPITAL Ferrous Sulfate (Ferrous Sulfate) 325 MG (65 MG IRON) TABLET 1 Tablet ORAL Three times a week Comments: NOT GIVEN IN HOSPITAL Sodium Bicarbonate (Sodium Bicarbonate) 650 MG TABLET 1 Tablet ORAL DAILY Comments: NOT GIVEN IN HOSPITAL Start taking the following new medications: Bumetanide (Bumetanide) 2 MG TABLET 1 Tablet ORAL TWICE DAILY Qty = 60 No Refills Instructions: . Comments: Last Taken: 04/10/18 Time: 9:00 AM Bumetanide (Bumetanide) 1 MG TABLET 1 Tablet ORAL TWICE DAILY Qty = 60 No Refills Instructions: . Comments: Last Taken: 04/10/18 Time: 9:00 AM Carvedilol (Carvedilol) 6.25 MG TABLET 1 Tablet ORAL TWICE DAILY Qty = 60 No Refills Instructions: . Comments: Last Taken: 04/10/18 Time: 9:00 AM Warfarin Sodium (Coumadin) 4 MG TABLET 1 Tablet ORAL DAILY Qty = 30 No Refills Comments: NOT GIVEN IN HOSPITAL Copies To: Pete HUNT,Sva Meyer
--- NOTE | 2018-04-10 11:59 | PN- Nephrology ---
Assessment/Plan Nephrology Assessment: CKD stage 5, non-proteinuric: suspect due to HTN, age, chronic cardiorenal factors. Dialysis would be warranted given severe renal failure with refractory volume overload; however patient clearly states that she would never wants dialysis. Without dialysis it would be extremely difficult to keep her out of heart failure & she will be a high readmission risk in the next weeks. Patient & daughter are now agreeable to home hospice. CHF: Refactory to diuretics, still has crackles on exam. Pt refusing metolazone as did not tolerate in the past. Plan for bumex 3 mg po bid upon discharge to home hospice. Suggestion: bumex 3 mg po bid solidify plans for home hospice; patient & daughter understand and agree agreeable now discussed with patient, daughter, housestaff, RN, and casey saw operator Her outpatient japanese interpreter Dr Ring was notified as well Subjective Subjective: No acute events changed to PO Bumex today taking some PO Review of Systems: no chest pain, vomiting Objective Vital Signs and I&Os Vital Signs Date Time Temp Pulse Resp B/P B/P Pulse O2 O2 Flow FiO2 Mean Ox Delivery Rate 04/10 0905 79 128/62 04/10 0553 97.4 79 18 128/62 93 Nasal Cannula 04/10 0000 Nasal 1.5L Cannula 04/09 2247 97.5 88 18 112/70 95 Nasal 2.0L Cannula 04/09 2040 90 116/70 04/09 1600 96 Nasal 1.5L Cannula 04/09 1414 97.9 71 20 116/64 96 Nasal 2.0L Cannula Intake & Output 04/10 1600 04/10 0400 04/09 1600 04/09 0400 04/08 1600 04/08 0400 Intake Total 120 300 980 300 630 240 Output Total 700 200 276 973 4350 400 Balance -580 100 680 -150 -470 -160 Intake, IV 30 Intake, Oral 120 300 980 300 600 240 Output, Urine 700 200 154 974 0672 400 Patient 145 lb 144 lb 143 lb Weight Weight Bed scale Bed scale Measurement Method Physical Exam: NAD +crackles in b/l lungs, half way up trace edema S1 S2 soft NT no sanchez no asterixis Current Medications: Current Medications Sig/Madisyn Start time Last Medication Dose Route Stop Time Status Admin Bumetanide 3 MG BID 04/09 2100 AC 04/10 PO 905 Calcitriol 0.25 MCG 04/04 0900 AC 04/09 PO 0941 Carvedilol 6.25 MG BID 04/09 2100 AC 04/10 PO 09 Carvedilol 12.5 MG BID 04/03 2100 DC 04/08 PO 2157 Furosemide 120 MG BID 04/08 1058 DC 04/08 IV 2300 Insulin Aspart 0 TIDAC 04/03 1700 AC 04/10 SC 0815 Nitroglycerin 0.5 GM Q6 04/04 1345 DC 04/08 TOP 1802 Results Pertinent Lab Results: Laboratory Tests 04/10 04/09 0610 0615 Chemistry Sodium (137 - 145 mmol/L) 142 141 Potassium (3.5 - 5.1 mmol/L) 4.5 3.4 L Chloride (98 - 107 mmol/L) 100 98 Carbon Dioxide (22 - 30 mmol/L) 28 28 Anion Gap (5 - 16) 14 15 BUN (7 - 17 mg/dL) 84 H 88 H Creatinine (0.5 - 1.0 mg/dL) 3.9 H 3.9 H Estimated GFR (>60 ml/min) 11 L 11 L BUN/Creatinine Ratio (7 - 25 %) 21.5 22.6 Magnesium (1.6 - 2.3 mg/dL) 2.3 Coagulation PT (9.4 - 12.5 SEC) 34.2 H 40.9 H INR (0.90 - 1.19) 3.10 H 3.70 H Hematology CBC w Diff NO MAN DIFF REQ NO MAN DIFF REQ WBC (4.8 - 10.8 /CUMM) 8.4 7.3 RBC (4.20 - 5.40 /CUMM) 3.73 L 3.73 L Hgb (12.0 - 16.0 G/DL) 10.8 L 10.8 L Hct (37 - 47 %) 32.0 L 32.0 L MCV (81.0 - 99.0 FL) 85.7 85.8 MCH (27.0 - 31.0 PG) 28.9 29.0 MCHC (33.0 - 37.0 G/DL) 33.7 33.8 RDW (11.5 - 14.5 %) 15.1 H 15.1 H Plt Count (130 - 400 /CUMM) 133 122 L MPV (7.4 - 10.4 FL) 9.6 9.7 Gran % (42.2 - 75.2 %) 73.5 70.4 Lymphocytes % (20.5 - 51.1 %) 16.8 L 18.6 L Monocytes % (1.7 - 9.3 %) 6.7 7.8 Eosinophils % (0 - 5 %) 2.5 2.7 Basophils % (0.0 - 2.0 %) 0.5 0.5 Absolute Granulocytes (1.4 - 6.5 /CUMM) 6.1 5.2 Absolute Lymphocytes (1.2 - 3.4 /CUMM) 1.4 1.4 Absolute Monocytes (0.10 - 0.60 /CUMM) 0.6 0.6 Absolute Eosinophils (0.0 - 0.7 /CUMM) 0.2 0.2 Absolute Basophils (0.0 - 0.2 /CUMM) 0 0 06/05 0620 Chemistry Sodium (137 - 145 mmol/L) 140 Potassium (3.5 - 5.1 mmol/L) 3.8 Chloride (98 - 107 mmol/L) 99 Carbon Dioxide (22 - 30 mmol/L) 27 Anion Gap (5 - 16) 15 BUN (7 - 17 mg/dL) 86 H Creatinine (0.5 - 1.0 mg/dL) 4.3 H Estimated GFR (>60 ml/min) 10 L BUN/Creatinine Ratio (7 - 25 %) 20.0 Coagulation PT (9.4 - 12.5 SEC) 38.9 H INR (0.90 - 1.19) 3.52 H Hematology CBC w Diff NO MAN DIFF REQ WBC (4.8 - 10.8 /CUMM) 7.6 RBC (4.20 - 5.40 /CUMM) 3.66 L Hgb (12.0 - 16.0 G/DL) 10.5 L Hct (37 - 47 %) 31.3 L MCV (81.0 - 99.0 FL) 85.4 MCH (27.0 - 31.0 PG) 28.8 MCHC (33.0 - 37.0 G/DL) 33.7 RDW (11.5 - 14.5 %) 15.0 H Plt Count (130 - 400 /CUMM) 111 L MPV (7.4 - 10.4 FL) 10.0 Gran % (42.2 - 75.2 %) 67.8 Lymphocytes % (20.5 - 51.1 %) 23.0 Monocytes % (1.7 - 9.3 %) 5.6 Eosinophils % (0 - 5 %) 3.1 Basophils % (0.0 - 2.0 %) 0.5 Absolute Granulocytes (1.4 - 6.5 /CUMM) 5.1 Absolute Lymphocytes (1.2 - 3.4 /CUMM) 1.7 Absolute Monocytes (0.10 - 0.60 /CUMM) 0.4 Absolute Eosinophils (0.0 - 0.7 /CUMM) 0.2 Absolute Basophils (0.0 - 0.2 /CUMM) 0
[2018-04-10] MEDS ORDERED: BUMETANIDE2 M1 PO (13:14)
[2018-04-10] MEDS ORDERED: BUMETANIDE1 M1 PO (13:14)
--- NOTE | 2018-04-11 08:27 | ECHOCARDIOGRAM REPORT ---
KEVIN ARECHIGA Age: 87 : 1930 Gender: F Exam Date: 04/04/2018 08:52 Exam Location: [facility] Ht (in): 60 Wt (lb): 140 BSA: 1.66 BP: 118 / 74 Ordering Physician: Manuelito Art MD Referring Physician: Manuelito Art MD Technologist: [facility] Room Number: 178-1 Indications: CHF, unspecified or secondary right CHF Rhythm: Sinus Technical Quality: fair FINDINGS Left Ventricle Normal size left ventricle. Left ventricular wall thickness increased. Normal left ventricular ejection fraction estimated at 60-65%. Flattened septum in systole consistent with right ventricle pressure overload. Right Ventricle Right ventricular dilatation. Right Atrium Right atrial dilatation. Left Atrium Mild to moderate left atrial dilatation. Mitral Valve Mitral valve thickened. Moderate mitral annular calcification. Mild mitral regurgitation. 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 Tricuspid Valve Tricuspid valve not well visualized, grossly normal. Mild-to- moderate tricuspid regurgitation. Right ventricular systolic pressure estimated to be elevated at 50 mmHg. Pulmonic Valve Pulmonic valve not well visualized. Pericardium No pericardial effusion. Great Vessels Aortic root and proximal ascending aorta not well visualized, grossly normal. CONCLUSIONS 1. This was a technically difficult examination. 2. 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 The valve was not optimally visualized anatomically but the Doppler parameters appear normal. 3. Mitral leaflet thickening is present with moderate anular calcification and mild Michelle insufficiency with mild to moderate left atrial enlargement. 4. There is no significant pericardial fluid present. 5. The left ventricular chamber size is normal with mild concentric hypertrophy and a normal ejection fraction. There are no significant resting wall motion abnormalities. Abnormal septal motion is present consistent with the presence of pulmonary hypertension. 6. Enlargement of the right heart chambers is present with mild to moderate tricuspid insufficiency and pulmonary hypertension with an estimated RV systolic pressure of at least 50 mmHg. THIS REPORT WAS AMENDED TO CORRECT PATIENT IDENTIFIERS. Naye Dunn M.D. (Electronically Signed) Final Date: 04 April 2018 16:50 Amended: 09 April 2018 12:13 MEASUREMENTS (Male / Female) Normal Values 2D ECHO LV Diastolic Diameter PLAX 4.2 cm 4.2 - 5.9 / 3.9 - 5.3 cm LV Systolic Diameter PLAX 2.7 cm 2.1 - 4.0 cm LV Fractional Shortening PLAX 35.7 % 25 - 46 % LV Ejection Fraction 2D Teich 65.6 % IVS Diastolic Thickness 1.4 cm LVPW Diastolic Thickness 1.3 cm LV Relative Wall Thickness 0.6 LV Ejection Fraction MOD BP 57.1 % >= 55 % LV Cardiac Index MOD BP 1540.7 cm/minm LV Diastolic Length 4C 5.7 cm 6.9 - 10.3 cm LV Diastolic Area 4C 21.6 cm LV Diastolic Volume MOD 4C 69.0 cm LV Ejection Fraction MOD 4C 56.5 % LV Stroke Volume MOD 4C 39.0 cm LV Cardiac Index MOD 4C 1669.1 cm/minm LV Systolic Length 4C 5.4 cm LV Systolic Area 4C 13.9 cm LV Systolic Volume MOD 4C 30.0 cm LV Ejection Fraction MOD 2C 56.4 % LV Cardiac Index MOD 2C 1326.7 cm/minm LV Diastolic Volume 4C AL 70.2 cm 85 - 139 / 69 - 109 cm LV Systolic Volume 4C AL 30.4 cm LV Ejection Fraction 4C AL 56.7 % LV Stroke Volume 4C AL 39.8 cm LV Cardiac Index 4C AL 1702.3 cm/minm LV Ejection Fraction 2C AL 58.7 % LV Cardiac Index 2C AL 1386.7 cm/minm DOPPLER AV Peak Velocity 143.0 cm/s AV Peak Gradient 8.2 mmHg LVOT Peak Velocity 72.6 cm/s LVOT Peak Gradient 2.1 mmHg Mitral E Point Velocity 108.0 cm/s MV Deceleration Time 278.0 ms TR Peak Velocity 353.0 cm/s TR Peak Gradient 49.8 mmHg PV Peak Velocity 58.4 cm/s PV Peak Gradient 1.4 mmHg
== END 2018-04-10 14:15 | DRG 291 ==
LOC: ERH 11:53 → ERHI 14:25 → 1NO 14:25 → ENRESERV 16:24 → ENTRNSPT 16:58 → 1NO 17:00 → EDTRNSPTSTS 17:08 → EDTRNSPT 17:08 → 1NO 17:16 → CMPTRNSPT 17:27 → 1NO 04-04 07:18 → ENPENDDIS 04-10 10:30 → 1NO 04-10 14:15
PROVIDERS: Internal Medicine; Physician Assistant Medical; Student in an Organized Health Care Education/Training Program
DX: I13.2 Hypertensive heart and chronic kidney disease with heart failure and with stage 5 chronic kidney disease, or end stage renal disease (principal); I50.33 Acute on chronic diastolic (congestive) heart failure; N18.5 Chronic kidney disease, stage 5; E87.0 Hyperosmolality and hypernatremia; N17.9 Acute kidney failure, unspecified; Z51.5 Encounter for palliative care; E11.22 Type 2 diabetes mellitus with diabetic chronic kidney disease; Z79.4 Long term (current) use of insulin; I48.2 Chronic atrial fibrillation; Z79.01 Long term (current) use of anticoagulants; I87.2 Venous insufficiency (chronic) (peripheral); E78.5 Hyperlipidemia, unspecified; Z88.2 Allergy status to sulfonamides; M10.9 Gout, unspecified; I25.10 Atherosclerotic heart disease of native coronary artery without angina pectoris; Z95.1 Presence of aortocoronary bypass graft; Z95.0 Presence of cardiac pacemaker; D69.6 Thrombocytopenia, unspecified; Z66 Do not resuscitate; Z90.49 Acquired absence of other specified parts of digestive tract
CPT/HCPCS: 1NP; 36415; 36592; 71045; 76775; 81001; 82436; 93005; 93010; 93306; 93970; 97110-GO; 97116-GO; 97161-GP; 97164-GP; 97530-GO; 99291; J1644; J1940; J7060